=== PATIENT | male | born 1945 | race Caucasian/White ===

== ENCOUNTER 2017-10-13 23:07 | Inpatient (IN) ==
[2017-10-14] MEDS ORDERED: Bisacodyl 10 MG Supp RECTAL PRN (02:11)
[2017-10-14] MEDS ORDERED: Temazepam 15 MG Capsule PO PRN (02:11)
[2017-10-14] MEDS ORDERED: Dexamethasone Inj 20 MG/5 ML Vial IV.PUSH ONE (02:17)
--- NOTE | 2017-10-14 02:32 | P.HPCC ---
History of Present Illness Primary Care Physician: UNKNOWN History of Present Illness: 72-year-old very pleasant gentleman presented to [facility] via EMS for an evaluation of a fall. The patient states that he was walking into the library when he started to become uncoordinated, states falling onto his right hip. The patient reports now having a persistent right hib pain. He denies any head trauma or loss of consciousness. The patient states that about the 1 months ago he has been in the emergency department at [facility] due to a facial droop but he left AMA at that time. He was having an MRI completed at the [facility] on October 10 that shows 2 cm peripheral enhancing mass within the left parietal lobe with a moderate amount of surrounding edema highly suspicious for metastatic disease. There is no history of primary malignancy which could have similar appearance although is considered less likely. The CT brain at the [facility] shows heterogenous hyperdense focal hemorrhagic mass at the right frontal lobe 2.4 cm in size with reactive vasogenic edema. The patient has also x-ray of the hip and pelvis that shows acute minimally displaced fracture at the right proximal femur likely intertrochanteric in location. The patient has been transferred to [facility] [place] for higher level of care and neurosurgical/ orthopedic evaluation. Inpatient Certification: I certify that the inpatient services were ordered in accordance with Medicare regulations governing the order. This includes certification that hospital inpatient services are reasonable and necessary and in the case of services not specified as inpatient-only under 42 CFR 419.22(n), that they are appropriately provided as inpatient services in accordance to with the 2-midnight benchmark under 43 CFR 412.3(e) Estimated Total Length of Stay (Days): 5 Plans for Post Hospital Care: Not yet determined Review of Systems All other systems reviewed negative except as stated in HPI [facility] - Medical History Medical History: Medical History (Last Updated 10/14/17 @ 02:30 by Brodie Davis MD) COPD (chronic obstructive pulmonary disease) Multiple sclerosis - Surgical History Surgical History: Surgical History (Last Updated 10/14/17 @ 02:30 by Brodie Davis MD) Hx of tonsillectomy - Family History Family History: Family History (Last Updated 10/14/17 @ 02:31 by Brodie Davis MD) Other No significant family history - Tobacco History Second Hand Smoke Exposure: No Tobacco Use In Past 30 Days: Yes Smoking Status: Current every day smoker Tobacco Type: Cigarettes - Alcohol History How Often Do You Have a Drink Containing Alcohol: Monthly or less Medications and Allergies Active Medications: Active Medications Acetaminophen (Tylenol) 650 mg PO Q6H PRN PRN Reason: PAIN 1-10 AND/OR FEVER >101F Al Hydroxide/Mg Hydroxide (Milk Of Magnesia Liq) 30 ml PO Q12H PRN PRN Reason: Mild Constipation Albuterol (Duoneb Neb (Prn)) 1 ampul NEB Q2HR NEB PRN PRN Reason: WHEEZING Bisacodyl (Dulcolax Supp) 10 mg RECTAL DAILY PRN PRN Reason: SEVERE CONSITIPATION Chlorhexidine Gluconate (Chlorhexidine 2% Cloth) 3 pack TOPICAL DAILY@0400 PRN PRN Reason: Extra cloth needed Stop: 10/19/17 03:59 Chlorhexidine Gluconate (Chlorhexidine 2% Cloth) 3 pack TOPICAL DAILY@0400 DREW Stop: 10/19/17 03:59 Dexamethasone Sodium Phosphate (Decadron Inj) 4 mg IV.PUSH Q6HR DREW Famotidine (Pepcid Pf Inj) 20 mg IV.PUSH Q12HR DREW Sodium Chloride (Ns Inj) 1,000 mls @ 84 mls/hr IV.CONT .[id number] DREW Lactulose (Lactulose Liq) 30 ml PO DAILY PRN PRN Reason: SEVERE CONSITIPATION Morphine Sulfate (Morphine Inj) 2 mg IV.PUSH Q2H PRN PRN Reason: PAIN SCALE 6 TO 10 Ondansetron HCl (Zofran Inj) 4 mg IV.PUSH Q6H PRN PRN Reason: NAUSEA OR VOMITING Senna/Docusate Sodium (Imrella-Colace) 1 tab PO BID DREW Sennosides (Senokot) 17.2 mg PO Q12H PRN PRN Reason: Moderate Constipation Sodium Chloride (Ns Flush) 2 ml IV.FLUSH BID DREW Sodium Chloride (Ns Flush) 2 ml IV.FLUSH PRN PRN PRN Reason: FLUSH AFTER USING IV ACCESS Temazepam (Restoril) 15 mg PO HS PRN PRN Reason: INSOMNIA Allergies Allergy/AdvReac Type Severity Reaction Status Date / Time No Known Allergies Allergy Verified 10/14/17 02:07 Results - Labs CBC & Chem 7: 10/14/17 02:20 10/14/17 02:20 Exam Vital signs: Intake & Output 10/13/17 10/13/17 10/14/17 06:59 18:59 06:59 Weight 56.2 kg Other: Weight On Admission 56.2 kg - Constitutional mild distress - Routine HEENT Exam Head: Present: normocephalic, atraumatic Eye: Present: PERRL ENT: Present: mucous membranes moist - Routine Neck Exam Present: supple. Absent: JVD, carotid bruit - Routine Respiratory Exam Absent: accessory muscle use, rhonchi, stridor, wheezes - Routine Cardiovascular Exam Present: RRR, S1, S2 - Routine Abdominal Exam Present: soft, normoactive bowel sounds. Absent: tenderness - Routine Extremities Exam Absent: cyanosis, clubbing, edema - Routine Skin Exam Present: intact. Absent: cyanosis, erythema - Routine Neurological Exam Present: alert, oriented X3, facial asymmetry. Absent: pronator drift Caprini VTE Risk Assessment Caprini VTE Risk Assessment: Moderate/High Risk (score >= 2) Caprini Risk Assessment Model: Point Value = 1 Point Value = 2 Point Value = 3 Point Value = 5 Age 41-60 Minor surgery BMI > 25 kg/m2 Swollen legs Varicose veins or History of unexplained or recurrent spontaneous Oral contraceptives or hormone replacement Sepsis (< 1 month) Serious lung disease, including pneumonia (< 1 month) Abnormal pulmonary function Acute myocardial infarction Congestive heart failure (< 1 month) History of inflammatory bowel disease Medical patient at bed rest Age 61-74 Arthroscopic surgery Major open surgery (> 45 min) Laparoscopic surgery (> 45 min) Malignancy Confined to bed (> 72 hours) Immobilizing plaster cast Central venous access Age >= 75 History of VTE Family history of VTE Factor V Leiden Prothrombin [id number] Lupus anticoagulant Anticardiolipin antibodies Elevated serum homocysteine Heparin-induced thrombocytopenia Other congenital or acquired thrombophilia Stroke (< 1 month) Elective arthroplasty Hip, pelvis, or leg fracture Acute spinal cord injury (< 1 month) Prophylaxis Regimen: Total Risk Factor Score Risk Level Prophylaxis Regimen 0-1 Low Early ambulation 2 Moderate Order ONE of the following: *Sequential Compression Device (SCD) *Heparin 5000 units SQ BID 3-4 Higher Order ONE of the following medications: *Heparin 5000 units SQ TID *Enoxaparin/Lovenox 40 mg SQ daily (WT < 150 kg, CrCl > 30 mL/min) *Enoxaparin/Lovenox 30 mg SQ daily (WT < 150 kg, CrCl > 10-29 mL/min) *Enoxaparin/Lovenox 30 mg SQ BID (WT < 150 kg, CrCl > 30 mL/min) AND/OR *Sequential Compression Device (SCD) 5 or more Highest Order ONE of the following medications: *Heparin 5000 units SQ TID (Preferred with Epidurals) *Enoxaparin/Lovenox 40 mg SQ daily (WT < 150 kg, CrCl > 30 mL/min) *Enoxaparin/Lovenox 30 mg SQ daily (WT < 150 kg, CrCl > 10-29 mL/min) *Enoxaparin/Lovenox 30 mg SQ BID (WT < 150 kg, CrCl > 30 mL/min) AND *Sequential Compression Device (SCD) Assessment and Plan - Assessment and Plan Plan: Brain mass -Likely secondary per MRI review -Vasogenic edema -Decadron every 6 hours -Neurosurgical consultation -Repeat CT head -Neuro checks per unit protocol -CT chest abdomen and pelvis workup of primary lesion -Oncology consultation Hip fracture -Orthopedic consultation COPD -No exacerbation -DuoNeb's as needed DVT GI prophylaxis -Teds SCDs -Pharmacological DVT prophylaxis per oncology/neurosurgery, hold now due to hemorrhagic brain mass -Pepcid Critical Care: The total critical care time was 35 minutes. Time to perform other separately billable procedures was not included in the critical care time.
[2017-10-14 02:39] LABS: Baso % (Auto) 0.2 % (0.0-2.0); Hematocrit 47.5 % (39.0-51.0); Hemoglobin 16.7 gm/dL (13.0-17.0); Lymph # (Auto) 0.5 th/mm3 (1.0-4.8); Lymph % (Auto) 3.4 % (9.0-44.0); Mean Corpuscular HGB Conc 35.1 % (32.0-36.0); Mean Corpuscular Hemoglobin 31.3 pg (27.0-34.0); Mean Corpuscular Volume 89.1 fL (80.0-100.0); Mean Platelet Volume 7.6 fL (7.0-11.0); Mono # (Auto) 0.4 th/mm3 (0.0-0.9); Mono % (Auto) 2.3 % (0.0-8.0); Neut # (Auto) 14.8 th/mm3 (1.8-7.7); Neut % (Auto) 94.1 % (16.0-70.0); Platelet Count 247 th/mm3 (150-450); Red Blood Count 5.33 mil/mm3 (4.50-5.90); Red Cell Distribution Width 13.1 % (11.6-17.2); White Blood Count 15.7 th/mm3 (4.0-11.0)
[2017-10-14 02:45] LABS: Alanine Aminotransferase 38 U/L (12-78); Albumin 3.4 g/dL (3.4-5.0); Anion Gap 6 meq/L (5-15); Aspartate Aminotransferase 26 U/L (15-37); Blood Urea Nitrogen 12 mg/dL (7-18); Calcium 8.8 mg/dL (8.5-10.1); Carbon Dioxide 26.4 meq/L (21.0-32.0); Chloride 109 meq/L (98-107); Glomerular Filtration Rate 80 mL/min (>89); Glucose,Random 144 mg/dL (74-106); Magnesium 2.3 mg/dL (1.5-2.5); Phosphorus 3.8 mg/dL (2.5-4.9); Potassium 4.2 meq/L (3.5-5.1); Sodium 141 meq/L (136-145)
[2017-10-14 02:47] LABS: Alkaline Phosphatase 85 U/L (45-117); Total Protein 6.8 g/dL (6.4-8.2)
[2017-10-14 02:51] LABS: Activated Partial Thrombo Time 28.2 sec (24.3-30.1); Prothrombin Time 10.4 sec (9.8-11.6)
[2017-10-14] MEDS ORDERED: Chlorhexidine Gluconate 2% 1 Pack (2 Cloths) TOPICAL PRN (04:00)
[2017-10-14] MEDS: Sod Chloride 0.9% Inj 1,000 ML IV.CONT SCH ×2 (04:14→16:15)
[2017-10-14] MEDS: Chlorhexidine Gluconate 2% 1 Pack (2 Cloths) TOPICAL SCH (04:15)
--- NOTE | 2017-10-14 05:02 | CT ---
EXAM DATE: 10/14/2017 4:52 AM EDT AGE/SEX: 72 years / Male INDICATIONS: Hemorrhagic mass. CLINICAL DATA: This is the patient's initial encounter. Patient reports that signs and symptoms have been present for 1 day and indicates a pain score of 3/10. MEDICAL/SURGICAL HISTORY: Chronic obstructive pulmonary disease. Multiple sclerosis. None. RADIATION DOSE: 59.43 CTDI (mGy) COMPARISON: No prior exams available for comparison. TECHNIQUE: CT of the head without contrast. Using automated exposure control and adjustment of the mA and/or kV according to patient size, radiation dose was kept as low as reasonably achievable to ob tain optimal diagnostic quality images. DICOM format image data is available electronically for revi ew and comparison. FINDINGS: The examination demonstrates a hyperdense mass in the left frontal subcortical region with a large am ount of surrounding vasogenic edema. The mass measures 2.5 x 1.7 cm in transverse and AP dimension. T here is no midline shift. There are no signs of acute infarction. There is a subcentimeter low-densit y focus in the right basal ganglia, and there is patchy periventricular white matter disease. The oss eous structures are intact. CONCLUSION: 1. Left frontal intra-axial mass with large amount of surrounding vasogenic edema. 2. Atrophy and white matter disease. . Electronically signed by: Skinny Clayton MD 10/14/2017 5:01 AM EDT
--- NOTE | 2017-10-14 05:05 | CT ---
EXAM DATE: 10/14/2017 4:58 AM EDT AGE/SEX: 72 years / Male INDICATIONS: Brain mass. Evaluate for metastatic disease. CLINICAL DATA: This is the patient's initial encounter. Patient reports that signs and symptoms have been present for 1 day and indicates a pain score of 0/10. MEDICAL/SURGICAL HISTORY: Chronic obstructive pulmonary disease. Multiple sclerosis. None. RADIATION DOSE: 6.51 CTDI (mGy) COMPARISON: [facility] [place] ABDOMEN & PELVIS W CONTRAST, 10/14/2017. . TECHNIQUE: Multiple contiguous axial images were obtained through the chest during bolus infusion of 98 ml Omnipaque 350 (iohexol) nonionic water-soluble contrast as a cumulative dose for multiple exa ms. Images were obtained in suspended respiration using multiple row detector helical technique. U sing automated exposure control and adjustment of the mA and/or kV according to patient size, radiati on dose was kept as low as reasonably achievable to obtain optimal diagnostic quality images. DICOM format image data is available electronically for review and comparison. FINDINGS: 3.4 cm predominately hypodense though inhomogeneous mass of the spleen identified. Visualized kidneys are unremarkable. Adrenals unremarkable. Osseous structures are intact. Right hilar adenopathy up to 1.7 cm in short axis dimension. 1 cm precarinal lymph node. There is mild dilatation of the ascendin g aorta up to 4 cm. Review of lung windows demonstrate severe emphysema with a large left upper lobe bulla noted. There are atelectatic changes at the left lung base. There is a nodule in the right midd le lobe, noncalcified measuring 5.3 mm on image 45. CONCLUSION: 1. 5.3 mm right middle lobe nodule. 2. Severe emphysema. 3. Nonspecific mediastinal and right hilar adenopathy. 4. Indeterminate mass within the spleen. Electronically signed by: Skinny Clayton MD 10/14/2017 5:04 AM EDT
--- NOTE | 2017-10-14 05:14 | CT ---
EXAM DATE: 10/14/2017 4:57 AM EDT AGE/SEX: 72 years / Male INDICATIONS: Brain mass. Evaluate for metastatic disease. Fall with right hip fracture. CLINICAL DATA: This is the patient's initial encounter. Patient reports that signs and symptoms have been present for 1 day and indicates a pain score of 10/10. MEDICAL/SURGICAL HISTORY: Chronic obstructive pulmonary disease. Multiple sclerosis. None. ORAL CONTRAST: No oral contrast ingested. RADIATION DOSE: 6.51 CTDI (mGy) ; Combined studies COMPARISON: No prior exams available for comparison. TECHNIQUE: Multiple contiguous axial images were obtained through the abdomen and pelvis following b olus infusion of 98 ml Omnipaque 350 (iohexol) nonionic water-soluble contrast as a cumulative dose for multiple exams. No oral contrast ingested. Using automated exposure control and adjustment of t he mA and/or kV according to patient size, radiation dose was kept as low as reasonably achievable to obtain optimal diagnostic quality images. DICOM format image data is available electronically for r eview and comparison. FINDINGS: There are degenerative changes of the spine, and atherosclerotic calcification of the aorta and iliac vessels are noted. Liver, gallbladder, left kidney, adrenal glands unremarkable. There is focal scar ring at the middle pole of the right kidney. Urinary bladder unremarkable. The prostate is prominent measuring 6.8 cm in transverse dimension by 4 cm in AP dimension. Moderate to severe diverticulosis o f the sigmoid colon without diverticulitis. There is no adenopathy. There is ectasia of the abdominal aorta measuring 2.5 x 2.5 cm focally on image 36 below the level of the kidneys. There are multiple hypodense masses seen within the spleen including an inhomogeneous predominantly low attenuation mass measuring 3.4 x 3.1 cm in transverse and AP dimension. Lung windows demonstrate severe emphysema and left basilar atelectasis. There are severe degenerative changes of the lumbar spine. CONCLUSION: 1. Splenic nodules are identified including a 3.4 cm mass. This is nonspecific. 2. Severe emphysema. 3. Mild ectasia of the infrarenal abdominal aorta. Electronically signed by: Skinny Clayton MD 10/14/2017 5:13 AM EDT
--- NOTE | 2017-10-14 07:31 | P.PNOP ---
Subjective Interval history: Patient with long-standing history of MS. Presented a transfer from [facility] after suffering a fall while trying to walk into the library. States that he lost all control of his motor function and lower body. Reports right hip pain Physical Exam Vital signs: Vital Signs 10/14/17 03:00 10/14/17 03:10 10/14/17 04:00 Temperature 98.2 F 98.3 F Pulse Rate 76 84 72 Respiratory Rate 18 20 Blood Pressure 168/101 H 168/102 H Pulse Oximetry 94 L Intake & Output 10/13/17 10/14/17 10/14/17 18:59 06:59 18:59 Output Total 400 / 400 Balance -400 / -400 Weight 56.2 kg Output: Urine 400 / 400 Other: Weight On Admission 56.2 kg Narrative: RLE: Pain with motion of the hip. Full sensation distally and strong dorsiflexion. Results - Labs CBC & Chem 7: 10/14/17 02:20 10/14/17 02:20 Laboratory Results - last 24 hr 10/14/17 10/14/17 10/14/17 01:47 02:20 02:20 WBC 15.7 H RBC 5.33 Hgb 16.7 Hct 47.5 MCV 89.1 MCH 31.3 MCHC 35.1 RDW 13.1 Plt Count 247 MPV 7.6 Neut % (Auto) 94.1 H Lymph % (Auto) 3.4 L [place] % (Auto) 2.3 Eos % (Auto) 0.0 Baso % (Auto) 0.2 Neut # (Auto) 14.8 H Lymph # (Auto) 0.5 L [place] # (Auto) 0.4 Eos # (Auto) 0.0 Baso # (Auto) 0.0 WBC Differential . Differential Comment Auto diff final PT 10.4 INR 1.0 APTT 28.2 Sodium Potassium Chloride Carbon Dioxide Anion Gap BUN Creatinine Estimated GFR Random Glucose Calcium Phosphorus Magnesium Total Bilirubin AST ALT Alkaline Phosphatase Total Protein Albumin Nasal Screen MRSA (PCR) Not detected 10/14/17 02:20 WBC RBC Hgb Hct MCV MCH MCHC RDW Plt Count MPV Neut % (Auto) Lymph % (Auto) [place] % (Auto) Eos % (Auto) Baso % (Auto) Neut # (Auto) Lymph # (Auto) [place] # (Auto) Eos # (Auto) Baso # (Auto) WBC Differential Differential Comment PT INR APTT Sodium 141 Potassium 4.2 Chloride 109 H Carbon Dioxide 26.4 Anion Gap 6 BUN 12 Creatinine 0.93 Estimated GFR 80 L Random Glucose 144 H Calcium 8.8 Phosphorus 3.8 Magnesium 2.3 Total Bilirubin 0.8 AST 26 ALT 38 Alkaline Phosphatase 85 Total Protein 6.8 Albumin 3.4 Nasal Screen MRSA (PCR) - Imaging Impressions Abdomen/Pelvis CT 10/14/17 00:00 CONCLUSION: 1. Splenic nodules are identified including a 3.4 cm mass. This is nonspecific. 2. Severe emphysema. 3. Mild ectasia of the infrarenal abdominal aorta. Chest CT 10/14/17 00:00 CONCLUSION: 1. 5.3 mm right middle lobe nodule. 2. Severe emphysema. 3. Nonspecific mediastinal and right hilar adenopathy. 4. Indeterminate mass within the spleen. Head CT 10/14/17 00:00 The examination demonstrates a hyperdense mass in the left frontal subcortical region with a large amount of surrounding vasogenic edema. The mass measures 2.5 x 1.7 cm in transverse and AP dimension. There is no midline shift. There are no signs of acute infarction. There is a subcentimeter low-density focus in the right basal ganglia, and there is patchy periventricular white matter disease. The osseous structures are intact. CONCLUSION: 1. Left frontal intra-axial mass with large amount of surrounding vasogenic edema. 2. Atrophy and white matter disease. . Assessment and Plan - Assessment and Plan 1) right femoral neck fracture -Resume diet -N.p.o. after midnight -We will plan for surgical intervention with right hip hemiarthroplasty tomorrow Dr. Velazquez -Medical team to evaluate for surgical intervention -We will proceed pending medical clearance -Sign consents
[2017-10-14] MEDS: Labetalol HCl Inj 100 MG/20 ML Vial IV.PUSH PRN (08:12)
[2017-10-14] MEDS: Senna/Docusate Sodium 8.6/50 MG Tablet PO SCH ×2 (08:12→21:46)
[2017-10-14] MEDS: Famotidine PF Inj 20 MG/2 ML Vial IV.PUSH SCH ×2 (08:12→21:46)
--- NOTE | 2017-10-14 10:30 | MB ---
cc: Nabeel Velazquez MD DATE: 10/14/2017 REASON FOR CONSULTATION: Right femoral neck fracture. HISTORY OF PRESENT ILLNESS: Juvenal is a 72-year-old male who has a history of multiple sclerosis. He states that he was walking into the public library when he suddenly felt uncoordinated and was losing control of his muscles. He tried to make it to a chair to sit down. He lost his balance and fell. He landed on his right side. He was initially taken to [facility] in [place]. He was found to have a 2 cm peripheral enhancing lesion in the left parietal lobe. He was subsequently transferred to [facility]. He is currently awake and alert in the intensive care unit. He complains of right hip pain. The pain is worse with movement. He denies dizziness or syncope. PAST MEDICAL HISTORY: ILLNESSES: COPD, multiple sclerosis. PAST SURGICAL HISTORY: Tonsillectomy. ALLERGIES: NO KNOWN DRUG ALLERGIES. MEDICATIONS: Please see EMR for complete list of inpatient medications. This was reviewed. SOCIAL HISTORY: The patient does smoke cigarettes. He denies alcohol or drug use. FAMILY HISTORY: Noncontributory. REVIEW OF SYSTEMS: The patient denies fevers, chills, weight loss, headache, visual changes, hearing loss, chest pain, palpitations, shortness of breath, nausea, vomiting, urinary changes, diarrhea, bowel changes, neck pain, back pain, skin rashes, weakness, numbness of extremities, anxiety or depression. He does have chronic hearing loss, but this is unchanged. He complains of right hip pain. X-RAYS: X-rays of right hip are reviewed. X-rays reveal a partially displaced right femoral neck fracture. LABORATORY DATA: White blood cell count of 15.7, platelet count 247, hematocrit of 47.5. INR 1.0. Potassium 4.2. PHYSICAL EXAMINATION: GENERAL: The patient is a thin, well-developed 72-year-old male. He is awake and alert. He is in no acute distress. He is alert and oriented x3. VITAL SIGNS: Temperature 98.2, pulse 76, respirations 18, blood pressure 168/101, O2 saturation 94% on room air. HEAD: The patient is normocephalic. EYES: Pupils are equal. NECK: Soft, nontender. The trachea is in the midline. ABDOMEN: Soft, nontender, nondistended. EXTREMITIES: Examination of bilateral upper extremities reveals no pain with shoulder, elbow or wrist motions. He has intact sensation in all fingers. Skin is intact. Radial pulses are palpable bilaterally. Examination of the left leg reveals no pain with hip, knee or ankle motion. Skin is intact. Dorsalis pedis pulse is palpable. Sensation is intact. Examination of the right leg reveals pain with any hip motion. He is tender to palpation over the proximal femur. He has no tenderness on his knee, tibia or ankle. Skin is intact. Dorsalis pedis pulse is palpable. IMPRESSION: 1. Multiple sclerosis. 2. Newly diagnosed brain lesion. 3. Right femoral neck fracture. PLAN: Treatment options were discussed with the patient. At this point I would recommend surgery for the right hip. I would recommend a right hip hemiarthroplasty. Risks of surgery include bleeding, infection, injuries to arteries, nerves or blood vessels, leg length discrepancy, hip dislocation, fracture of the femur as well as medical complications including blood clot, stroke, heart attack and . All questions were answered. I will plan surgery tomorrow if he is medically cleared. Postoperatively, the patient will have Physical Therapy consulted to work on gait training. A mid-level provider in my office, nurse practitioner or PA, may see this patient on a follow-up basis and continue to implement the objective of this plan including: Starting or adjusting medications, injections of muscle, tendon, bursa or joints, cast application, orthotic or brace application, physical therapy, further radiographic studies including x-ray, MRI, CT, ultrasounds or bone scan, vascular studies, neurologic studies, or other specialist consultations, and proceeding with surgical management as appropriate. MD NOLVIA Johnson/MINISTERIO , 10:11 AM , 10:19 AM
[2017-10-14] MEDS ORDERED: Gadobutrol PF 7.5 MMOL/7.5 ML Vial (for RAD) IV.SIG ONE (11:03)
--- NOTE | 2017-10-14 11:32 | MR ---
EXAM DATE: 10/14/2017 11:21 AM EDT AGE/SEX: 72 years / Male INDICATIONS: . Mass seen on CT. CLINICAL DATA: This is the patient's subsequent encounter. Patient reports that signs and symptoms h ave been present for 2 days and indicates a pain score of 2/10. MEDICAL/SURGICAL HISTORY: Multiple sclerosis. Chronic obstructive pulmonary disease. Tonsillec gadiel. COMPARISON: [facility] [place], [place] HEAD W/O CONTRAST, 10/14/2017.. . TECHNIQUE: Multiplanar, multisequence examination of the brain was performed without and with 5.5 ml Gadavist (gadobutrol) contrast as a single exam dose. FINDINGS: Cerebrum: There is a soft tissue mass at the willson-white matter junction involving the left parietal lobe. This measures 2.5 x 2.1 x 1.8 cm. An enhancing nodule is seen involving the more anterior aspec t of the lesion. There is surrounding vasogenic edema. Multiple tiny foci of blooming artifact scatte red throughout both cerebral and cerebellar hemispheres suggesting areas of microhemorrhage. No acute hemorrhage. No infarction.. White Matter: Confluent high T2 signal abnormality involving the periventricular white matter both c erebral hemispheres as well as scattered throughout the corpus callosum.. Posterior Fossa: The cerebellum and brainstem are intact. The 4th ventricle is midline. The cerebel lopontine angle is unremarkable. The cerebellar tonsils are normal in position. Diffusion Imaging: No focal areas of restricted diffusion are seen. No evidence of acute infarction . Extracranial: The visualized portions of the orbits and paranasal sinuses are unremarkable. Post Contrast: No abnormal areas of parenchymal or dural enhancement. No evidence of blood-brain ba rrier breakdown. CONCLUSION: 1. 2.5 x 2.1 x 1.8 cm intra-axial mass involving the left parietal lobe with surrounding vasogenic e ramiro consistent with a malignancy. 2. Multiple foci of microhemorrhage scattered throughout both cerebral and cerebellar hemispheres townsend ggesting amyloid angiopathy. 3. White matter changes suggesting multiple sclerosis. Electronically signed by: Dago Tripp MD 10/14/2017 11:31 AM EDT
--- NOTE | 2017-10-14 13:10 | P.DIET ---
Nutritional Evaluation Type of nutrition evaluation: initial Nutrition screening: Weight Loss > 10 lbs (Steady loss of wt) Subjective Subjective Comments: C/o steady loss of wt possibly r/t the fact that he is unable to stand for long durations to cook, per pt. Objective - Diagnosis Brain Tumor - Objective % IBW: 72 (ZOT=449#) Body Weight Used for Calculations: IBW (78.2kg) Energy Needs - Lower Range (kCal/kg): 25 Energy Needs - Upper Range (kCal/kg): 30 Lower Limit kCal/kg (kCals): 1,955 Upper Limit kCal/kg (kCals): 2,346 Lower Limit Protein Factor (Grams per Kg): 1.2 Upper Limit Protein Factor (Grams per Kg): 1.5 Lower Protein Needs (Protein): 94 Upper Protein Needs (Protein): 117 Dietitian Reviewed in Medical Record: Current diet, Curent medications, Intake & Output, Labs, Medical history Diet Order: Regular Assessment Assessment: Pt admitted for brain tumor. Pt to go to possible ortho sx tomorrow if medically clear. Oncology consult pending. Currently on a Regular diet, which is appropriate. I've added Ensure Enlive TID for added nutrition. Recommend a multivitamin/mineral daily. He does c/o wt loss. Pt is at high nutritional risk 2/2 his wt loss/current wt status, poor PO intake, and current medical dx. Will continue to monitor to determine course of care 2/2 the above. Dietitian following. Recommendations: 1. Recommend daily multivitamin/mineral. 2. Enlive TID. Dietitian to Monitor: Lab values, Supplement acceptance, Intake & Output, Diet tolerance, Weight change, PO Intake, Medical course
--- NOTE | 2017-10-14 20:07 | P.CONNS ---
History of Present Illness Service: Neurosurgery Consult date: 10/14/17 Primary Care Provider: UNKNOWN Chief Complaint: Right sided weakness History of Present Illness: 72-year-old male. Gives a history of MS with previous left sided weakness and loss of coordination. He states that approximately a month ago he developed a right facial droop. He states that the initial episode was relatively short- lived, resolved. He had a couple of subsequent episodes. He states that he was seen in the emergency room when this problem first started and a scan was done of the brain with a finding of neoplasm. He states that it took him a month to get an MRI which was just done this week. He indicates that on the day of admission, he was ambulating and lost total control of his right side and fell. He has sustained a right femoral neck fracture. He states that his walking is been impaired for 2 or 3 weeks. He was seen at [facility] emergency room and transferred to [facility] for neurosurgery and orthopedic evaluation. He states that during his previous episodes where his face was weak, he had shaking, twitching in the face as well as the right upper extremity. No complaint of blurred vision diplopia. FOR[facility]LY [facility] - History History Provided By: Patient - Medical History Medical History: Medical History (Last Reviewed 10/14/17 @ 08:00 by Shabnam Russell) COPD (chronic obstructive pulmonary disease) Multiple sclerosis - Surgical History Surgical History: Surgical History (Last Reviewed 10/14/17 @ 08:00 by Shabnam Russell) Hx of tonsillectomy - Family History Family History: Family History (Last Updated 10/14/17 @ 02:31 by Brodie Davis MD) Other No significant family history - Tobacco History Second Hand Smoke Exposure: Yes Tobacco Use In Past 30 Days: Yes Smoking Status: Heavy tobacco smoker Tobacco Type: Cigarettes - Alcohol History How Often Do You Have a Drink Containing Alcohol: Never - Substance Use History Substance History: No History of Abuse - Immunization History Tetanus Immunization: >5 Years Hx Influenza Vaccine This Season: No Medications and Allergies Active Medications: Active Medications Acetaminophen (Tylenol) 650 mg PO Q6H PRN PRN Reason: PAIN 1-10 AND/OR FEVER >101F Al Hydroxide/Mg Hydroxide (Milk Of Magnesia Liq) 30 ml PO Q12H PRN PRN Reason: Mild Constipation Albuterol (Duoneb Neb (Prn)) 1 ampul NEB Q2HR NEB PRN PRN Reason: WHEEZING Bisacodyl (Dulcolax Supp) 10 mg RECTAL DAILY PRN PRN Reason: SEVERE CONSITIPATION Chlorhexidine Gluconate (Chlorhexidine 2% Cloth) 3 pack TOPICAL DAILY@0400 PRN PRN Reason: Extra cloth needed Stop: 10/19/17 03:59 Chlorhexidine Gluconate (Chlorhexidine 2% Cloth) 3 pack TOPICAL DAILY@0400 [facility] Stop: 10/19/17 03:59 Last Admin: 10/14/17 04:15 Dose: Not Given Dexamethasone Sodium Phosphate (Decadron Inj) 4 mg IV.PUSH Q6HR [facility] Last Admin: 10/14/17 17:31 Dose: 4 mg Famotidine (Pepcid Pf Inj) 20 mg IV.PUSH Q12HR [facility] Last Admin: 10/14/17 08:12 Dose: 20 mg Sodium Chloride (Ns Inj) 1,000 mls @ 84 mls/hr IV.CONT .[id number] [facility] Last Admin: 10/14/17 16:15 Dose: 84 mls/hr Labetalol HCl (Trandate Inj) 10 mg IV.PUSH Q4H PRN PRN Reason: SBP>160 Last Admin: 10/14/17 08:12 Dose: 10 mg Lactulose (Lactulose Liq) 30 ml PO DAILY PRN PRN Reason: SEVERE CONSITIPATION Morphine Sulfate (Morphine Inj) 2 mg IV.PUSH Q2H PRN PRN Reason: PAIN SCALE 6 TO 10 Nicotine (Habitrol 14 Mg Patch.24 Hr) 1 patch T-DERMAL DAILY [facility] Last Admin: 10/14/17 16:15 Dose: 1 patch Ondansetron HCl (Zofran Inj) 4 mg IV.PUSH Q6H PRN PRN Reason: NAUSEA OR VOMITING Patch Removal (Remove Old Patch) 1 each T-DERMAL DAILY [facility] Senna/Docusate Sodium (Mirella-Colace) 1 tab PO BID [facility] Last Admin: 10/14/17 08:12 Dose: 1 tab Sennosides (Senokot) 17.2 mg PO Q12H PRN PRN Reason: Moderate Constipation Sodium Chloride (Ns Flush) 2 ml IV.FLUSH BID [facility] Last Admin: 10/14/17 08:13 Dose: 2 ml Sodium Chloride (Ns Flush) 2 ml IV.FLUSH PRN PRN PRN Reason: FLUSH AFTER USING IV ACCESS Temazepam (Restoril) 15 mg PO HS PRN PRN Reason: INSOMNIA Allergies Allergy/AdvReac Type Severity Reaction Status Date / Time No Known Allergies Allergy Verified 10/14/17 02:07 Exam Vital signs: Vital Signs 10/14/17 03:00 10/14/17 03:10 10/14/17 04:00 Temperature 98.2 F 98.3 F Pulse Rate 76 84 72 Respiratory Rate 18 20 Blood Pressure 168/101 H 168/102 H Pulse Oximetry 94 L 10/14/17 08:00 10/14/17 12:00 10/14/17 16:00 Temperature 98.1 F 97.6 F 98.1 F Pulse Rate 70 64 56 L Respiratory Rate 20 30 H 18 Blood Pressure 169/103 H 137/78 122/72 Pulse Oximetry Intake & Output 10/14/17 10/14/17 10/15/17 06:59 18:59 06:59 Intake Total 1650 / 1650 Output Total 400 / 400 600 / 600 Balance -400 / -400 1050 / 1050 Weight 56.2 kg Intake: IV 1000 / 1000 NS Inj 1,000 ML @ 84 mls/hr IV. 1000 / 1000 CONT .[id number] DREW Rx#:[id number] Oral 650 / 650 Output: Urine 400 / 400 600 / 600 Other: Weight On Admission 56.2 kg Narrative: GENERAL: This is a well-nourished, well-developed patient, no apparent distress. SKIN: No abrasions, contusion, rash noted. Skin warm and dry. HEAD: Atraumatic. Normocephalic. No temporal or scalp tenderness. EYES: Sclerae are clear and nonicteric ENT: No facial edema or ecchymosis. No periorbital edema. No CSF otorrhea or rhinorrhea. No palpable facial fracture or deformity. NECK: Trachea midline. No cervical spine tenderness. CARDIOVASCULAR: Regular rate and rhythm without murmurs, gallops, or rubs. RESPIRATORY: Clear to auscultation. Breath sounds equal bilaterally. No wheezes , rales, or rhonchi. GASTROINTESTINAL: Abdomen soft, non-tender, nondistended. No hepato-splenomegaly , or palpable masses. No guarding. MUSCULOSKELETAL: Extremities without cyanosis, or edema. No joint tenderness, or edema noted. No calf tenderness. Dorsalis pedis pulses 2+ bilateral NEUROLOGICAL: Awake and alert Oriented X 3 Speech is pressured, rapid, moderate dysarthria. Conversant and appropriate but very anxious Follow simple commands well Answers questions appropriately Reasonable judgment and insight Recent and remote memory are intact Positive anxiety Pupils are equal and reactive to accommodation. Extra-ocular movements, visual choi to confrontation, palate, sternocleidomastoid testing, hearing to finger rub testing, and bilateral shoulder shrug are all intact. Moderate right facial paresis. Tongue protrudes slightly to the right of midline. Sensation is intact to light touch in all extremities Strength mildly diminished right hand intrinsics. Mostly 4-5/5 motor right lower extremity but in. Testing due to fracture. Sincere's absent bilaterally No ankle clonus Plantar responses absent bilateral Fine motor movements moderately impaired in the right greater than left upper extremities Results - Laboratory Findings CBC and BMP: 10/16/17 03:28 10/15/17 04:10 Abnormal lab findings: Abnormal Labs 10/14/17 10/14/17 10/14/17 02:20 02:20 18:05 WBC 15.7 H Neut % (Auto) 94.1 H Lymph % (Auto) 3.4 L Neut # (Auto) 14.8 H Lymph # (Auto) 0.5 L Chloride 109 H Estimated GFR 80 L POC Glucose 194 H Random Glucose 144 H - Diagnostic Findings Additional findings: The patient's MRI brain images have been reviewed. There is a greater than 2 cm lesion left parietal region at the deep aspect of the sulcus. Moderate surrounding edema. Radiology interpretation: Cerebrum: There is a soft tissue mass at the willson-white matter junction involving the left parietal lobe. This measures 2.5 x 2.1 x 1.8 cm. An enhancing nodule is seen involving the more anterior aspect of the lesion. There is surrounding vasogenic edema. Multiple tiny foci of blooming artifact scattered throughout both cerebral and cerebellar hemispheres suggesting areas of microhemorrhage. No acute hemorrhage. No infarction.. White Matter: Confluent high T2 signal abnormality involving the periventricular white matter both cerebral hemispheres as well as scattered throughout the corpus callosum.. Assessment and Plan - Plan Impression: Solitary left parietal neoplasm. Plan: Due to location of lesion. Radiation therapy should be considered for initial treatment. Brain biopsy may be needed if no other lesions are able to be biopsied for tissue diagnosis. Discussed with patient. All questions answered
[2017-10-15 05:04] LABS: Baso % (Auto) 0.1 % (0.0-2.0); Hematocrit 46.4 % (39.0-51.0); Hemoglobin 15.8 gm/dL (13.0-17.0); Lymph # (Auto) 0.7 th/mm3 (1.0-4.8); Lymph % (Auto) 2.8 % (9.0-44.0); Mean Corpuscular HGB Conc 34.2 % (32.0-36.0); Mean Corpuscular Hemoglobin 30.8 pg (27.0-34.0); Mean Corpuscular Volume 90.1 fL (80.0-100.0); Mean Platelet Volume 8.5 fL (7.0-11.0); Mono # (Auto) 0.9 th/mm3 (0.0-0.9); Mono % (Auto) 3.3 % (0.0-8.0); Neut # (Auto) 24.5 th/mm3 (1.8-7.7); Neut % (Auto) 93.8 % (16.0-70.0); Platelet Count 247 th/mm3 (150-450); Red Blood Count 5.15 mil/mm3 (4.50-5.90); Red Cell Distribution Width 13.2 % (11.6-17.2); White Blood Count 26.1 th/mm3 (4.0-11.0)
[2017-10-15 05:11] LABS: Activated Partial Thrombo Time 25.4 sec (24.3-30.1)
[2017-10-15 05:24] LABS: Albumin 3.2 g/dL (3.4-5.0); Anion Gap 9 meq/L (5-15); Aspartate Aminotransferase 22 U/L (15-37); Blood Urea Nitrogen 19 mg/dL (7-18); Calcium 8.8 mg/dL (8.5-10.1); Carbon Dioxide 25.9 meq/L (21.0-32.0); Chloride 105 meq/L (98-107); Glomerular Filtration Rate 76 mL/min (>89); Glucose,Random 98 mg/dL (74-106); Magnesium 2.2 mg/dL (1.5-2.5); Potassium 4.4 meq/L (3.5-5.1); Sodium 140 meq/L (136-145)
[2017-10-15 05:27] LABS: Alanine Aminotransferase 31 U/L (12-78); Alkaline Phosphatase 87 U/L (45-117); Total Protein 6.6 g/dL (6.4-8.2)
[2017-10-15] MEDS: Chlorhexidine Gluconate 2% 1 Pack (2 Cloths) TOPICAL SCH (05:31)
[2017-10-15] MEDS: Sod Chloride 0.9% Inj 1,000 ML IV.CONT SCH ×2 (05:31→14:15)
[2017-10-15] MEDS ORDERED: fentaNYL Citrate Inj 250 MCG/5 ML Ampul ONE (06:47)
[2017-10-15] MEDS ORDERED: fentaNYL Citrate Inj 100 MCG/2 ML Ampul ONE (06:48)
[2017-10-15] MEDS ORDERED: Famotidine PF Inj 20 MG/2 ML Vial ONE (06:48)
--- NOTE | 2017-10-15 06:55 | MB ---
cc: Chayo Seay MD DATE: 10/14/2017 REASON FOR CONSULTATION: Consult requested by explosive operator fuse, Dr. Davis, for evaluation of brain mass and recommendation for DVT prophylaxis. HISTORY OF PRESENT ILLNESS: Juvenal is a 72-year-old male. He was transferred from [facility] to [place] for neurosurgical consultation. The patient states that a month ago, he had developed a right facial droop and he went to [facility]. In the emergency room, he had radiological studies done, which showed a brain mass. He was advised for further workup, but he signed out against medical advice as he wants to take care of his finances and other personal stuff. Patient stated that when he was recently going to the library, he was not feeling well and he lost his balance and had weakness on the right side of the body. He fell. He was again brought in to the emergency room at [facility]. He had an MRI of the brain, which showed a 2 cm left parietal lobe mass. The patient is now transferred to [place] for neurosurgical consultation. The patient is under the care of explosive operator fuse. Dr. Davis is requesting oncology consult for brain mass, as well as recommendation for DVT prophylaxis. The patient appears to be confused and very talkative. His speech is tangential, sometimes it does not make much sense. The rest of the review of systems is negative. PAST MEDICAL HISTORY: COPD, multiple sclerosis. PAST SURGICAL HISTORY: Tonsillectomy. ALLERGIES: NONE. MEDICATIONS: Prior to coming to the hospital, none listed. FAMILY HISTORY: No family history of malignancy. SOCIAL HISTORY: The patient smokes cigarettes, one pack a day. Does not drink alcohol. PHYSICAL EXAMINATION: GENERAL: Shows a well-developed, chronically ill-appearing white male in no apparent distress. VITAL SIGNS: Temperature 98.1, heart rate is 56, blood pressure is 122/72. OBJECTIVE: VITAL SIGNS: Stable. Afebrile. HEAD, EYES, EARS, NOSE, AND THROAT: Pupils equal, round, reactive to light and accommodation, extraocular movements intact. Anicteric. No oral lesions noted. No thrush noted. NECK: Supple. No JVD. No masses noted. LUNGS: Clear. No wheezing, rhonchi, or rales. HEART: Regular rate and rhythm. No murmur heard. ABDOMEN: Soft and nontender. No hepatosplenomegaly. No abnormal bowel sounds. No guarding or rigidity noted. EXTREMITIES: No pedal edema. No cyanosis, no clubbing. NEUROLOGIC: Awake, alert, oriented x 3. Sensory and motor seem to be intact. SKIN: No bruises or petechiae noted. BREASTS: No masses noted. LYMPH NODES: No cervical, supraclavicular, or axillary lymphadenopathy noted. BACK: There is no spinal tenderness noted. NEUROLOGIC: Awake, alert, oriented x2. ASSESSMENT: 1. A 2.5 cm left parietal lobe mass with surrounding vasogenic edema. This is consistent with a primary brain tumor until proven otherwise. 2. Multiple foci of microhemorrhage scattered throughout both cerebral and cerebellar hemispheres, suggesting amyloid angiopathy. 3. White matter changes suggesting multiple sclerosis. PLAN: I have reviewed his available records, and I had an extensive discussion with the patient regarding the left parietal lobe mass. I also reviewed the CT scan of the chest, abdomen, and pelvis, which does not show any evidence of another primary cancer. He has a very small 5 mm lung nodule, which is nonspecific. He also has indeterminate mass in the spleen, which I believe is due to granulomatous disease. I strongly suspect that he has primary brain tumor. I talked to him about biopsy. Depending on the biopsy results, we will decide about further treatment plan. The patient has agreed to have the brain biopsy. Neurosurgery has been consulted and we are waiting for their input. I have discussed the case with supervisor mending, Dr. Pruitt. I have also discussed the case with the patient's nurse and informed her that the patient has agreed to have a brain biopsy. She will notify neurosurgeon for the consult. Regarding the DVT recommendation, he is not a candidate for any pharmacological prophylaxis due to brain mass, as well as hemorrhagic spots in the brain. The patient is already on SCDs, which I agree with that. Thank you for asking my opinion. MD ELENO Canales/leah/blane , 06:42 PM , 06:55 PM WILLIAMS
--- NOTE | 2017-10-15 07:02 | P.PNOP ---
Subjective Interval history: Pain controlled and doing well. No new complaints. Still complains of pain to right hip Physical Exam Vital signs: Vital Signs 10/14/17 08:00 10/14/17 12:00 10/14/17 16:00 Temperature 98.1 F 97.6 F 98.1 F Pulse Rate 70 64 56 L Respiratory Rate 20 30 H 18 Blood Pressure 169/103 H 137/78 122/72 Pulse Oximetry 10/14/17 20:00 10/14/17 21:09 10/15/17 00:00 Temperature 98.4 F 98.0 F Pulse Rate 68 Respiratory Rate 24 52 H Blood Pressure 157/111 H 127/68 Pulse Oximetry 93 L 10/15/17 04:00 Temperature 98.1 F Pulse Rate 58 L Respiratory Rate 22 Blood Pressure 172/89 H Pulse Oximetry 97 Intake & Output 10/14/17 10/15/17 10/15/17 18:59 06:59 18:59 Intake Total 1650 / 1650 1000 / 1000 Output Total 600 / 600 Balance 1050 / 1050 1000 / 1000 Intake: IV 1000 / 1000 1000 / 1000 NS Inj 1,000 ML @ 84 mls/hr IV. 1000 / 1000 1000 / 1000 CONT .[id number] DREW Rx#:[id number] Oral 650 / 650 Output: Urine 600 / 600 Narrative: Right lower extremity: Skin intact over hip. Pain with range of motion of hip. No pain to palpation of knee or ankle. Distally intact sensation with good capillary refills. Active dorsiflexion plantar flexion of foot Results - Labs CBC & Chem 7: 10/15/17 04:10 10/15/17 04:10 Laboratory Results - last 24 hr 10/14/17 10/15/17 10/15/17 18:05 04:10 04:10 WBC 26.1 H RBC 5.15 Hgb 15.8 Hct 46.4 MCV 90.1 MCH 30.8 MCHC 34.2 RDW 13.2 Plt Count 247 MPV 8.5 Neut % (Auto) 93.8 H Lymph % (Auto) 2.8 L [place] % (Auto) 3.3 Eos % (Auto) 0.0 Baso % (Auto) 0.1 Neut # (Auto) 24.5 H Lymph # (Auto) 0.7 L [place] # (Auto) 0.9 Eos # (Auto) 0.0 Baso # (Auto) 0.0 WBC Differential . Differential Comment Auto diff final PT 10.0 INR 1.0 APTT 25.4 Sodium Potassium Chloride Carbon Dioxide Anion Gap BUN Creatinine Estimated GFR POC Glucose 194 H Random Glucose Calcium Phosphorus Magnesium Total Bilirubin AST ALT Alkaline Phosphatase Total Protein Albumin 10/15/17 04:10 WBC RBC Hgb Hct MCV MCH MCHC RDW Plt Count MPV Neut % (Auto) Lymph % (Auto) [place] % (Auto) Eos % (Auto) Baso % (Auto) Neut # (Auto) Lymph # (Auto) [place] # (Auto) Eos # (Auto) Baso # (Auto) WBC Differential Differential Comment PT INR APTT Sodium 140 Potassium 4.4 Chloride 105 Carbon Dioxide 25.9 Anion Gap 9 BUN 19 H Creatinine 0.98 Estimated GFR 76 L POC Glucose Random Glucose 98 Calcium 8.8 Phosphorus 3.0 Magnesium 2.2 Total Bilirubin 0.4 AST 22 ALT 31 Alkaline Phosphatase 87 Total Protein 6.6 Albumin 3.2 L - Imaging Impressions Head MRI 10/14/17 00:00 CONCLUSION: 1. 2.5 x 2.1 x 1.8 cm intra-axial mass involving the left parietal lobe with surrounding vasogenic edema consistent with a malignancy. 2. Multiple foci of microhemorrhage scattered throughout both cerebral and cerebellar hemispheres suggesting amyloid angiopathy. 3. White matter changes suggesting multiple sclerosis. Assessment and Plan - Assessment and Plan 1) right femoral neck fracture -N.p.o. -Surgery this morning for right hip hemiarthroplasty -Sign consents
[2017-10-15] MEDS ORDERED: ceFAZolin 2 GM Premix Inj 2 GM/50 ML PIGGYBACK IV.SIG ONE (07:04)
--- NOTE | 2017-10-15 07:40 | ECG ---
Date Performed: 10/14/2017 Time Performed: 02:54:52 PTAGE: 72 years EKG: Sinus arrhythmia Possible right atrial abnormality Left bundle branch block Abnormal ECG NO PREVIOUS TRACING DOCTOR: Irene Rubio Interpretating Date/Time 10/15/2017 07:34:49
[2017-10-15] MEDS ORDERED: TRANEXAMIC ACID IV.SIG SCH (08:00)
[2017-10-15] MEDS ORDERED: SODIUM CHLOR 0.9% IV.SIG SCH (08:00)
[2017-10-15] MEDS ORDERED: Morphine Inj 4 MG/ML Vial ONE (08:19)
[2017-10-15] MEDS ORDERED: Post-op Orders (for Pharmacy) OTHER STA (08:33)
--- NOTE | 2017-10-15 08:37 | P.OP ---
- Preoperative Diagnosis (1) Displaced fracture of right femoral neck Date of procedure: 10/15/17 Procedure: Right hip hemiarthroplasty Anesthesia: GETA Surgeon: Nabeel Guerra MD Provider Network Mgr: CORRINA Edmonds PA-C The surgical procedure was assisted by my physician public health assistant. My P.A. presence was necessary throughout this case for the manipulation and positioning of the surgical extremity. My P.A. was assisting me throughout the duration of this procedure. The skill set of a physician public health assistant was medically necessary to complete this procedure. During the surgical case the surgical consultant was working at the back table and the physician public health assistant was directly assisting me. Operation and Findings: PLAN OF ACTIVITY Weight bear as tolerated. IMPLANTS USED DePuy Corail size [12] stem with size [51] bipolar head and [+1] neck. DETAILS OF PROCEDURE This patient was brought into the operating room and placed on the OR table. The patient was given anesthesia. The patient received IV antibiotics. The patient was then placed in lateral decubitus position. The hip and leg were prepped with alcohol, followed by Hibiclens and draped in a usual sterile fashion. Clean air was used for this procedure. Time out procedure was performed. The procedure began with a 5 inch incision over the posterolateral hip. The subcutaneous tissue was dissected with the Bovie. The iliotibial band were split in line with fibers. The Charnley retractor was placed. The piriformis and external rotators were released from the femur and tagged with a #1 Vicryl suture. The capsule is now incised and tagged with #1 Vicryl. The femoral neck fracture was now visualized. A corkscrew was now used to remove the femoral head. The femoral head was sized and measured. Soft tissue was now protected. The hip skid was placed underneath the femoral neck. An oscillating saw was used to make a femoral neck cut. At this point attention was turned to preparation of the proximal femur. A box osteotome was used to remove the lateral cortex of the femoral neck. The T- handle reamer was used to open the femoral canal. Next, the canal was broached. A lateralizing reamer was used to help lateralize the prosthesis. At this point a trial head and neck were placed. The hip was reduced. The patient was found to have excellent stability with good range of motion. Trial components were removed. Soft tissue and bone were thoroughly irrigated. A Corail stem was now opened. The stem was now impacted into the proximal femur. Care was taken to keep appropriate anteversion. The head and neck were now impacted onto the stem. The hip was again reduced. The hip was found to have good range of motion and good stability. Leg lengths were clinically equal. The wound was thoroughly irrigated. The capsule, piriformis and iliotibial band were closed with #1 Vicryl. Subcutaneous tissue was closed with 3-0 Vicryl. The skin was closed with willy. A sterile dressing was applied with Primapore. The patient was placed into a knee immobilizer. The patient was awakened and transferred to the recovery room in stable condition. Needle and sponge counts were correct.
[2017-10-15] MEDS ORDERED: *Meperidine Inj 25 MG/ML Vial PERIprocedural Use ONLY ONE (08:55)
--- NOTE | 2017-10-15 10:11 | XR ---
EXAM DATE: 10/15/2017 10:05 AM EDT AGE/SEX: 72 years / Male INDICATIONS: Post op right total hip replacement. CLINICAL DATA: This is the patient's initial encounter. Patient reports that signs and symptoms have been present for 1 day and indicates a pain score of 7/10. MEDICAL/SURGICAL HISTORY: None. None. COMPARISON: No prior exams available for comparison. FINDINGS: Postoperative right total hip replacement. Skin willy present laterally. Air in the soft tissues. 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 CONCLUSION: Postoperative right hip replacement with normal alignment. Electronically signed by: Kwan Casey MD 10/15/2017 10:10 AM EDT
[2017-10-15] MEDS: Famotidine PF Inj 20 MG/2 ML Vial IV.PUSH SCH ×2 (11:05→22:38)
[2017-10-15] MEDS: Senna/Docusate Sodium 8.6/50 MG Tablet PO SCH ×2 (11:06→22:38)
--- NOTE | 2017-10-15 11:42 | P.PNCC ---
Subjective Subjective Remarks/Hospital Course: 72-year-old very pleasant gentleman presented to [facility] via EMS for an evaluation of a fall. The patient states that he was walking into the library when he started to become uncoordinated, states falling onto his right hip. The patient reports now having a persistent right hib pain. He denies any head trauma or loss of consciousness. The patient states that about the 1 months ago he has been in the emergency department at [facility] due to a facial droop but he left AMA at that time. He was having an MRI completed at the [facility] on October 10 that shows 2 cm peripheral enhancing mass within the left parietal lobe with a moderate amount of surrounding edema highly suspicious for metastatic disease. There is no history of primary malignancy which could have similar appearance although is considered less likely. The CT brain at the [facility] shows heterogenous hyperdense focal hemorrhagic mass at the right frontal lobe 2.4 cm in size with reactive vasogenic edema. The patient has also x-ray of the hip and pelvis that shows acute minimally displaced fracture at the right proximal femur likely intertrochanteric in location. The patient has been transferred to [facility] for higher level of care and neurosurgical/ orthopedic evaluation. SUBJ: 10/15: Patient seen after right hip hemiarthroplasty. Breathing comfortably pain adequately controlled. Anxious about the brain tumor. Oncology Dr. Seay concerned about primary brain tumor. 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 Continues to have right facial droop Objective Vital Signs / I&O: Vital Signs 10/14/17 12:00 10/14/17 16:00 10/14/17 20:00 Temperature 97.6 F 98.1 F 98.4 F Pulse Rate 64 56 L 68 Respiratory Rate 30 H 18 24 Blood Pressure 137/78 122/72 157/111 H Pulse Oximetry 10/14/17 21:09 10/15/17 00:00 10/15/17 04:00 Temperature 98.0 F 98.1 F Pulse Rate 58 L Respiratory Rate 52 H 22 Blood Pressure 127/68 172/89 H Pulse Oximetry 93 L 97 10/15/17 07:10 10/15/17 08:48 10/15/17 09:00 Temperature 97.8 F 97.6 F Pulse Rate 62 89 79 Respiratory Rate 20 18 18 Blood Pressure 164/88 H 125/72 165/85 H Pulse Oximetry 96 95 95 10/15/17 09:15 10/15/17 09:30 Temperature 97.6 F Pulse Rate 70 69 Respiratory Rate 18 18 Blood Pressure 139/86 124/70 Pulse Oximetry 95 95 Intake & Output 10/14/17 10/15/17 10/15/17 18:59 06:59 18:59 Intake Total 1650 / 1650 1650 / 1650 1200 / 1200 Output Total 600 / 600 600 / 600 50 / 50 Balance 1050 / 1050 1050 / 1050 1150 / 1150 Weight 56.2 kg Intake: IV 1000 / 1000 1000 / 1000 50 / 50 NS Inj 1,000 ML @ 84 mls/hr IV. 1000 / 1000 1000 / 1000 CONT .[id number] [facility] Rx#:[id number] Ancef 2 GM Premix Inj 2 gm In 50 / 50 50 ml @ 0 mls/hr IV.SIG .STK- [facility] ONE Rx#:[id number] Oral 650 / 650 650 / 650 Anesthesia Amount 1150 / 1150 Output: Urine 600 / 600 600 / 600 Estimated Blood Loss 50 / 50 Result Diagrams: 10/15/17 04:10 10/15/17 04:10 Objective Remarks: - Constitutional Mildly anxious. - Routine HEENT Exam Head: normocephalic, atraumatic Eye: PERRL ENT: Right facial droop present - Routine Neck Exam Supple. No JVD, carotid bruit - Routine Respiratory Exam No accessory muscle use, rhonchi, stridor, wheezes - Routine Cardiovascular Exam RRR, S1, S2 - Routine Abdominal Exam Soft, normoactive bowel sounds. No tenderness - Routine Extremities Exam s/p right hip hemiarthroplasty. - Routine Skin Exam Right hip incision dressing intact - Routine Neurological Exam Alert, oriented X3, facial asymmetry right-sided facial droop. Muscle strength equal bilaterally at this time Assessment and Plan - Assessment and Plan Plan: Brain mass -Repeat MRI reviewed -Oncology opinion primary brain tumor. -Most likely will need brain biopsy, Dr. Bliss is following -Vasogenic edema, continue Decadron every 6 hours -Neuro checks per unit protocol -CT chest abdomen and pelvis workup of primary lesion, essentially unremarkable except small lung nodule -Oncology consultation appreciated Hip fracture -Orthopedic consultation -Patient is status post right hip hemiarthroplasty today -PT/OT COPD -No exacerbation -DuoNeb's as needed DVT GI prophylaxis -Teds SCDs -Pharmacological DVT prophylaxis per oncology/neurosurgery, hold now due to brain mass -Pepcid Critical Care: Level 2 Consult hospitalist to assume care in am.
[2017-10-15] MEDS ORDERED: Glycopyrrolate Inj 1 MG/5 ML Syringe IV.PUSH ONE (12:00)
[2017-10-15] MEDS ORDERED: Neostigmine Inj 5 MG/5 ML Syringe IV.PUSH ONE (12:00)
[2017-10-15] MEDS ORDERED: Lidocaine PF 1% Inj 5 ML Syringe INFILTRATN ONE (12:00)
[2017-10-15] MEDS ORDERED: hydrALAZINE HCl Inj 20 MG/ML Vial IV.PUSH ONE (12:00)
[2017-10-15] MEDS ORDERED: Esmolol Bolus Inj 100 MG/10 ML Vial IV.PUSH ONE (12:00)
[2017-10-15] MEDS: ALPRAZolam 0.25 MG Tablet PO PRN (13:27)
[2017-10-15] MEDS: Calcium/Vitamin D 250/125 MG Tablet PO SCH ×2 (13:27→17:52)
[2017-10-15] MEDS: ceFAZolin Inj 2,000 MG in Sodium Chlor 0.9% Inj 80 ML IV.SIG SCH (15:47)
--- NOTE | 2017-10-15 19:26 | P.PNPL ---
Subjective Interval history: 72 YOWM with Severe COPD, Left parietal mass Had Rt hip hemiarthroplasty Breathing better Anxious Physical Exam Vital signs: Vital Signs 10/14/17 20:00 10/14/17 21:09 10/15/17 00:00 Temperature 98.4 F 98.0 F Pulse Rate 68 Respiratory Rate 24 52 H Blood Pressure 157/111 H 127/68 Pulse Oximetry 93 L 10/15/17 04:00 10/15/17 07:10 10/15/17 08:48 Temperature 98.1 F 97.8 F 97.6 F Pulse Rate 58 L 62 89 Respiratory Rate 22 20 18 Blood Pressure 172/89 H 164/88 H 125/72 Pulse Oximetry 97 96 95 10/15/17 09:00 10/15/17 09:15 10/15/17 09:30 Temperature 97.6 F Pulse Rate 79 70 69 Respiratory Rate 18 18 18 Blood Pressure 165/85 H 139/86 124/70 Pulse Oximetry 95 95 95 10/15/17 12:00 10/15/17 16:00 Temperature 98.1 F 98.3 F Pulse Rate 75 72 Respiratory Rate 20 21 Blood Pressure 143/78 H 130/75 Pulse Oximetry 90 L 96 Intake & Output 10/15/17 10/15/17 10/16/17 06:59 18:59 06:59 Intake Total 1650 / 1650 1500 / 1500 Output Total 600 / 600 2400 / 2400 Balance 1050 / 1050 -900 / -900 Weight 56.2 kg Intake: IV 1000 / 1000 350 / 350 NS Inj 1,000 ML @ 84 mls/hr IV. 1000 / 1000 200 / 200 CONT .[id number] [facility] Rx#:[id number] Ancef 2 GM Premix Inj 2 gm In 50 / 50 50 ml @ 0 mls/hr IV.SIG .STK- [facility] ONE Rx#:[id number] Ancef Inj 2,000 MG In NS Inj 80 100 / 100 ML @ 200 mls/hr IV.SIG Q8H [facility] Rx#:[id number] Oral 650 / 650 Anesthesia Amount 1150 / 1150 Output: Urine 600 / 600 Estimated Blood Loss 50 / 50 Urine Amount (Catheter) 2350 / 2350 Indwelling Urethral Catheter 2350 / 2350 Other: # Bowel Movements 0 GENERAL: Elderly WM,NAD SKIN: Warm and dry. HEAD: Normocephalic. EYES: No scleral icterus. No injection or drainage. NECK: Supple, trachea midline. No JVD or lymphadenopathy. CARDIOVASCULAR: Regular rate and rhythm without murmurs, gallops, or rubs. RESPIRATORY: Breath sounds equal bilaterally. No accessory muscle use. GASTROINTESTINAL: Abdomen soft, non-tender, nondistended. MUSCULOSKELETAL: No cyanosis, or edema. BACK: Nontender without obvious deformity. No CVA tenderness. - Urinary Catheter Management Indwelling Urethral Catheter Cath placed during this visit: yes Reason for continuing: Acute urinary retention Insertion date: 10/15/17 Insertion time: 14:00 Assessment and Plan - Plan IMPRESSION: Severe COPD Left parietal mass Small Lung nodule Spleeinc nodule Nicotine use S/P Rt hip hemiarthroplasty PLAN: Aerosol nebs Supplement 02 Smoking cessation Neurosurgery, oncology following.
[2017-10-15] MEDS: Acetaminophen 325 MG Tablet PO PRN (22:38)
--- NOTE | 2017-10-15 22:58 | P.PNNS ---
Physical Exam Vital signs: Vital Signs 10/15/17 00:00 10/15/17 04:00 10/15/17 07:10 Temperature 98.0 F 98.1 F 97.8 F Pulse Rate 58 L 62 Respiratory Rate 52 H 22 20 Blood Pressure 127/68 172/89 H 164/88 H Pulse Oximetry 97 96 10/15/17 08:48 10/15/17 09:00 10/15/17 09:15 Temperature 97.6 F Pulse Rate 89 79 70 Respiratory Rate 18 18 18 Blood Pressure 125/72 165/85 H 139/86 Pulse Oximetry 95 95 95 10/15/17 09:30 10/15/17 12:00 10/15/17 16:00 Temperature 97.6 F 98.1 F 98.3 F Pulse Rate 69 75 72 Respiratory Rate 18 20 21 Blood Pressure 124/70 143/78 H 130/75 Pulse Oximetry 95 90 L 96 Intake & Output 10/15/17 10/15/17 10/16/17 06:59 18:59 06:59 Intake Total 1650 / 1650 1500 / 1500 Output Total 600 / 600 2400 / 2400 Balance 1050 / 1050 -900 / -900 Weight 56.2 kg Intake: IV 1000 / 1000 350 / 350 NS Inj 1,000 ML @ 84 mls/hr IV. 1000 / 1000 200 / 200 CONT .[id number] [facility] Rx#:[id number] Ancef 2 GM Premix Inj 2 gm In 50 / 50 50 ml @ 0 mls/hr IV.SIG .STK- [facility] Rx#:[id number] Ancef Inj 2,000 MG In NS Inj 80 100 / 100 ML @ 200 mls/hr IV.SIG Q8H [facility] Rx#:[id number] Oral 650 / 650 Anesthesia Amount 1150 / 1150 Output: Urine 600 / 600 Estimated Blood Loss 50 / 50 Urine Amount (Catheter) 2350 / 2350 Indwelling Urethral Catheter 2350 / 2350 Other: # Bowel Movements 0 Narrative: Right lower extremity: Skin intact over hip. Pain with range of motion of hip. No pain to palpation of knee or ankle. Distally intact sensation with good capillary refills. Active dorsiflexion plantar flexion of foot - Urinary Catheter Management Indwelling Urethral Catheter Cath placed during this visit: yes Reason for continuing: Acute urinary retention Insertion date: 10/15/17 Insertion time: 14:00 Assessment and Plan - Plan Impression: Solitary left parietal neoplasm. Plan: Due to location of lesion. Radiation therapy should be considered for initial treatment. Scheduled for biopsy 10/16/17
[2017-10-16] MEDS: ceFAZolin Inj 2,000 MG in Sodium Chlor 0.9% Inj 80 ML IV.SIG SCH ×2 (00:10→09:46)
[2017-10-16 03:55] LABS: Hemoglobin 15.5 gm/dL (13.0-17.0)
[2017-10-16] MEDS: Sod Chloride 0.9% Inj 1,000 ML IV.CONT SCH ×2 (06:21→16:43)
[2017-10-16] MEDS: Chlorhexidine Gluconate 2% 1 Pack (2 Cloths) TOPICAL SCH (06:22)
--- NOTE | 2017-10-16 07:13 | P.PNOP ---
Subjective Interval history: POD 1 s/p right hip hemiarthroplasty doing well. states no pain. reports has not been out of bed yet Physical Exam Vital signs: Vital Signs 10/15/17 08:48 10/15/17 09:00 10/15/17 09:15 Temperature 97.6 F Pulse Rate 89 79 70 Respiratory Rate 18 18 18 Blood Pressure 125/72 165/85 H 139/86 Pulse Oximetry 95 95 95 10/15/17 09:30 10/15/17 12:00 10/15/17 16:00 Temperature 97.6 F 98.1 F 98.3 F Pulse Rate 69 75 72 Respiratory Rate 18 20 21 Blood Pressure 124/70 143/78 H 130/75 Pulse Oximetry 95 90 L 96 10/15/17 20:00 10/16/17 00:00 10/16/17 04:00 Temperature 98 F 98.7 F 99.0 F Pulse Rate 28 L 66 58 L Respiratory Rate 14 25 H 22 Blood Pressure 123/77 145/81 H 139/88 Pulse Oximetry 96 97 99 Intake & Output 10/15/17 10/16/17 10/16/17 18:59 06:59 18:59 Intake Total 1500 / 1500 420 / 420 Output Total 2400 / 2400 1800 / 1800 Balance -900 / -900 -1380 / -1380 Intake: IV 350 / 350 NS Inj 1,000 ML @ 84 mls/hr IV. 200 / 200 CONT .[id number] [facility] Rx#:[id number] Ancef 2 GM Premix Inj 2 gm In 50 / 50 50 ml @ 0 mls/hr IV.SIG .STK- [facility] Rx#:[id number] Ancef Inj 2,000 MG In NS Inj 80 100 / 100 ML @ 200 mls/hr IV.SIG Q8H [facility] Rx#:[id number] Oral 420 / 420 Anesthesia Amount 1150 / 1150 Output: Estimated Blood Loss 50 / 50 Urine Amount (Catheter) 2350 / 2350 1800 / 1800 Indwelling Urethral Catheter 2350 / 2350 1800 / 1800 Other: # Bowel Movements 0 0 Narrative: RLE: dressings clean and dry. intact. NVI. +knee brace. - Urinary Catheter Management Indwelling Urethral Catheter Cath placed during this visit: yes Reason for continuing: Acute urinary retention Insertion date: 10/15/17 Insertion time: 14:00 Results - Labs CBC & Chem 7: 08/08/18 03:28 10/15/17 04:10 Laboratory Results - last 24 hr 10/16/17 03:28 Hgb 15.5 Hct 44.0 - Imaging Impressions Hip X-Ray 10/15/17 08:33 CONCLUSION: Postoperative right hip replacement with normal alignment. Assessment and Plan - Assessment and Plan 1) right femoral neck fracture s/p bipolar hemiarthroplasty - POD 1 -WBAT -daily dressing changes POD 2 with primapore. begin adding bacitracin on POD 10 -knee brace while in bed -posterior hip precautions -CM for SNF placement -f/u with [facility] in 2 weeks [id number] Prescription Drug Monitoring Database has been queried and verified prior to prescribing the controlled substance. Acute pain exception. This patient has normal, predicted, physiological, and time limited response to an adverse mechanical stimulus associated with surgery, trauma, or acute illness as described in my notes. There is a lack of alternative treatment options other than to include the prescribed narcotic treatment for this condition.
[2017-10-16] MEDS: Famotidine PF Inj 20 MG/2 ML Vial IV.PUSH SCH ×2 (08:53→22:54)
[2017-10-16] MEDS: Enoxaparin Inj 30 MG/0.3 ML Syringe SQ SCH ×2 (08:53→10:47)
[2017-10-16] MEDS: Senna/Docusate Sodium 8.6/50 MG Tablet PO SCH ×2 (08:53→22:55)
[2017-10-16] MEDS: ALPRAZolam 0.25 MG Tablet PO PRN (08:53)
[2017-10-16] MEDS: Calcium/Vitamin D 250/125 MG Tablet PO SCH ×3 (08:53→22:54)
[2017-10-16] MEDS ORDERED: Phenylephrine/NS 1000 MCG/10ML Syringe IV.PUSH ONE (12:00)
[2017-10-16] MEDS ORDERED: Lidocaine PF 1% Inj 5 ML Syringe INFILTRATN ONE (12:00)
[2017-10-16] MEDS: Labetalol HCl Inj 100 MG/20 ML Vial IV.PUSH PRN (12:24)
--- NOTE | 2017-10-16 15:43 | P.PNIM ---
Subjective Interval history: No pain. Feels hungry. Worried about what he will do after discharge. Physical Exam Vital signs: Vital Signs 10/15/17 16:00 10/15/17 20:00 10/16/17 00:00 Temperature 98.3 F 98 F 98.7 F Pulse Rate 72 28 L 66 Respiratory Rate 21 14 25 H Blood Pressure 130/75 123/77 145/81 H Pulse Oximetry 96 96 97 10/16/17 04:00 10/16/17 08:00 10/16/17 12:00 Temperature 99.0 F 97.9 F 98 F Pulse Rate 58 L 66 76 Respiratory Rate 22 22 29 H Blood Pressure 139/88 175/97 H 166/89 H Pulse Oximetry 99 100 100 Intake & Output 10/15/17 10/16/17 10/16/17 18:59 06:59 18:59 Intake Total 1500 / 1500 420 / 420 200 / 200 Output Total 2400 / 2400 1800 / 1800 Balance -900 / -900 -1380 / -1380 200 / 200 Intake: IV 350 / 350 200 / 200 NS Inj 1,000 ML @ 84 mls/hr IV. 200 / 200 CONT .[id number] [facility] Rx#:[id number] Ancef 2 GM Premix Inj 2 gm In 50 / 50 50 ml @ 0 mls/hr IV.SIG .STK- [facility] Rx#:[id number] Ancef Inj 2,000 MG In NS Inj 80 100 / 100 200 / 200 ML @ 200 mls/hr IV.SIG Q8H [facility] Rx#:[id number] Oral 420 / 420 Anesthesia Amount 1150 / 1150 Output: Estimated Blood Loss 50 / 50 Urine Amount (Catheter) 2350 / 2350 1800 / 1800 Indwelling Urethral Catheter 2350 / 2350 1800 / 1800 Other: # Bowel Movements 0 0 Narrative: GENERAL: This is a well-nourished, well-developed patient, in no apparent distress. CARDIOVASCULAR: Regular rate and rhythm . RESPIRATORY: Clear to auscultation. Breath sounds equal bilaterally. No wheezes , rales, or rhonchi. MUSCULOSKELETAL: Extremities without clubbing, cyanosis, or edema. NEURO: Alert and oriented [address] time with minimal expressive aphasia - Urinary Catheter Management Indwelling Urethral Catheter Cath placed during this visit: yes Reason for continuing: Acute urinary retention Insertion date: 10/15/17 Insertion time: 14:00 Results - Labs CBC & Chem 7: 10/16/17 03:28 10/15/17 04:10 Laboratory Results - last 24 hr 10/16/17 10/16/17 10/16/17 03:28 10:17 13:33 Hgb 15.5 Hct 44.0 POC Glucose 115 H 109 - Procedures 87 right hip hemiarthroplasty Assessment and Plan - Plan Transfer summary 72-year-old very pleasant gentleman presented to [facility] via EMS for an evaluation of a fall. The patient states that he was walking into the library when he started to become uncoordinated, states falling onto his right hip. The patient reports now having a persistent right hib pain. He denies any head trauma or loss of consciousness. The patient states that about the 1 months ago he has been in the emergency department at [facility] due to a facial droop but he left AMA at that time. He was having an MRI completed at the [facility] on October 10 that shows 2 cm peripheral enhancing mass within the left parietal lobe with a moderate amount of surrounding edema highly suspicious for metastatic disease. There is no history of primary malignancy which could have similar appearance although is considered less likely. The CT brain at the [facility] shows heterogenous hyperdense focal hemorrhagic mass at the right frontal lobe 2.4 cm in size with reactive vasogenic edema. The patient has also x-ray of the hip and pelvis that shows acute minimally displaced fracture at the right proximal femur likely intertrochanteric in location. The patient has been transferred to [facility] for higher level of care and neurosurgical/ orthopedic evaluation. 72-year-old white male transferred from [place] for evaluation for brain mass Brain mass -Repeat MRI reviewed -Oncology opinion primary brain tumor. -For brain biopsy today with Dr. Bliss -Vasogenic edema, continue Decadron every 6 hours -Neuro checks per unit protocol -CT chest abdomen and pelvis workup of primary lesion, essentially unremarkable except small lung nodule -Oncology consultation appreciated Right hip fracture -Appreciate orthopedic consultation -Patient is status post postoperative day #1 right hip hemiarthroplasty -PT/OT Continue postoperative care, pain control COPD, chronic -No exacerbation -DuoNeb's as needed DVT GI prophylaxis -Teds SCDs -Pharmacological DVT prophylaxis per oncology/neurosurgery, hold now due to brain mass -Pepcid
[2017-10-16] MEDS ORDERED: Gelatin Size 100 Topical Foam ONE (16:38)
[2017-10-16] MEDS ORDERED: Thrombin Topical Soln 5,000 UNIT Vial TOPICAL ONE ×2 (16:38→19:12)
[2017-10-16] MEDS ORDERED: Lidocaine 1%/Epinephrine 1:100,000 Inj 20 ML Vial ONE (16:38)
[2017-10-16] MEDS ORDERED: fentaNYL Citrate Inj 100 MCG/2 ML Ampul ONE (18:54)
[2017-10-16] MEDS ORDERED: Sugammadex Inj 200 MG/2 ML Vial IV.PUSH ONE (18:56)
[2017-10-16] MEDS ORDERED: Bisacodyl 10 MG Supp RECTAL PRN (20:28)
--- NOTE | 2017-10-16 20:47 | P.OP ---
Date of procedure: 10/16/17 Procedure: Left parietal craniectomy, resection neoplasm Intraoperative stereotactic guidance Anesthesia: GETA Surgeon: Bret Bliss MD Decorating Supervisor: Fredo Greco Estimated blood loss (mL): 100 Pathology: other (Left parietal neoplasm sent for remnant section pathology) Operation and Findings: Indications: 72-year-old male with recent onset seizure activity, right hemiparesis. Preoperative MRI with left parietal lesion consistent with metastatic neoplasm. Findings: Moderately firm somewhat granular appearing lesion deep to the left central sulcus. Procedure in detail: The patient was brought into the operating room and general endotracheal anesthesia induced without difficulty. Lines were established by anesthesia TIARA hose and sequential compression devices were in place Dang catheter was in place Appropriate timeout procedure was performed with all personal present and in agreement The patient was positioned in supine position with all extremities appropriately padded. The head was placed in the 3-point fixation device and secured to the operating room table with the neck slightly flexed and the head mildly rotated. The BrainLab system was registered with the laser facial registration system and landmarks verified. The BrainLab system was used to bakari the initial scalp flap and craniotomy opening, and was further used extensively during the procedure to guide the resection of the neoplasm. The hair overlying the scalp incision was shaved with clippers, and the operative site was sterilely prepped and draped. 1% Xylocaine with epinephrine was used for local infiltration over the incision site which was made in a curvilinear fashion over the left anterior parietal region and carried sharply down to the cranium. The scalp flap was elevated with the periosteal elevator and retracted with large scalp hooks. The homicide squad commanding officer was used to place a bur hole which was enlarged initially using the 3 mm Kerrison. The dura was opened in a cruciate fashion and the edges retracted with 4-0 Nurolon suture. The BrainLab Steri-Strip tactic system was used to determine the location of the initial incision and bur hole opening. It was subsequently used to determine the best trajectory to the neoplasm for biopsy. Upon direct examination of the cortical surface, the major blood vessels within the sulcus were visualized. The neoplasm was located at the deep border of the sulcus. It was felt safest to approach the neoplasm under direct visualization to avoid a trajectory through the adjacent tissue and to avoid any injury to the vasculature. It was thus elected to perform a small craniectomy at the bur hole site with the 3 mm bone bur and the Kerrison rongeur and expose the neoplasm directly at the deep aspect of the sulcus under microscope visualization. The microdissectors and microscissors and bipolar were used to open the arachnoid around the sulcus and the vasculature was carefully preserved. The sulcus opened easily and the BrainMedClimate system was used to localize the entry point to the neoplasm. There was a very thin layer of parenchyma at the deep sulcus overlying the neoplasm. The microdissectors were used to separate the adjacent parenchyma away from the border of the neoplasm. The deep aspect of the neoplasm was resected and sent for frozen section. Once this was done, there was a very clean dissection plane around the remainder of the neoplasm, and since there was good visualization of the lesion , it was elected to proceed with resection of the lesion through the small bur hole and craniectomy site. The neoplasm was circumferentially from the surrounding tissue with the [place] dissectors and the bipolar forceps with any bridging vessels coagulated with the bipolar forceps and incised with the microscissors. Any major vascular structures were carefully preserved. Cottonoid patties were used as needed to maintain the resection plane surrounding the tumor. Once the periphery of the tumor was delineated, the remaining central portion was gradually debulked using the tissue biopsy forceps and the suction with bleeding controlled with bipolar forceps. The periphery of the tumor was then removed. A gross total resection of the lesion was achieved. The tumor resection site was carefully examined and bleeding carefully controlled. There was no significant bleeding at the time of closure. The brain was soft and pulsatile at the time of closure The closure was performed with 4-0 Nurolon interrupted and running for the dura , a single circular titanium maxillofacial plate and screws to cover the craniectomy site, and 2-0 Vicryl for the galeal closure, [place] for the skin closure. A dressing of sterile Telfa, 4 x 4's, and a head stockinette were placed. The patient was turned back into supine position on the operating room table The 3-point head fixation device was removed The patient was taken to recovery room in stable condition All counts were correct at the end of the case Estimated blood loss was 100 cc. Specimen of the neoplasm was sent to pathology for permanent section
[2017-10-16] MEDS ORDERED: Senna/Docusate Sodium 8.6/50 MG Tablet PO SCH (21:00)
[2017-10-16] MEDS ORDERED: *morphine SULFATE 4 MG/ML PERIprocedure ONLY ONE (21:16)
[2017-10-17] MEDS: levETIRAcetam 500 MG Tablet PO SCH ×3 (02:50→21:10)
[2017-10-17] MEDS: Morphine Inj 4 MG/ML Vial IV.PUSH PRN ×2 (02:50→09:08)
[2017-10-17] MEDS: Sod Chloride 0.9% Inj 1,000 ML IV.CONT SCH (02:51)
[2017-10-17] MEDS: Chlorhexidine Gluconate 2% 1 Pack (2 Cloths) TOPICAL SCH (04:33)
--- NOTE | 2017-10-17 08:14 | P.PNOP ---
Subjective Interval history: POD 2 s/p right hip hemiarthroplasty went for brain biopsy yesterday and had tumor removed. now unable speak and flacid on right side. Physical Exam Vital signs: Vital Signs 10/16/17 12:00 10/16/17 16:14 10/16/17 20:15 Temperature 98 F 96.8 F L Pulse Rate 76 74 71 Respiratory Rate 29 H 18 15 Blood Pressure 166/89 H 156/81 H 159/94 H Pulse Oximetry 100 92 L 10/16/17 20:30 10/16/17 20:45 10/16/17 21:00 Temperature Pulse Rate 85 81 79 Respiratory Rate 15 15 22 Blood Pressure 165/99 H 185/83 H 166/102 H Pulse Oximetry 98 94 L 94 L 10/16/17 21:15 10/16/17 21:30 10/16/17 22:00 Temperature 98.9 F Pulse Rate 76 74 54 L Respiratory Rate 24 16 15 Blood Pressure 169/105 H 165/96 H 168/95 H Pulse Oximetry 95 95 98 10/16/17 23:00 10/17/17 00:00 10/17/17 01:00 Temperature 98.6 F 98.5 F Pulse Rate 50 L 52 L 50 L Respiratory Rate 12 13 12 Blood Pressure 152/89 H 143/77 H 152/79 H Pulse Oximetry 100 91 L 99 10/17/17 02:00 10/17/17 03:00 10/17/17 04:00 Temperature 98.7 F Pulse Rate 72 78 46 L Respiratory Rate 12 Blood Pressure 141/89 H 141/89 H 160/81 H Pulse Oximetry 89 L 90 L 100 10/17/17 05:00 10/17/17 06:00 Temperature 98.5 F 98.9 F Pulse Rate 50 L 58 L Respiratory Rate 13 Blood Pressure 157/83 H 151/86 H Pulse Oximetry 100 100 Intake & Output 10/16/17 10/17/17 10/17/17 18:59 06:59 18:59 Intake Total 200 / 200 2000 / 2000 1000 / 1000 Output Total 1300 / 1300 1600 / 1600 Balance -1100 / -1100 400 / 400 1000 / 1000 Weight 56.2 kg Intake: IV 200 / 200 1000 / 1000 NS + KCl 20 mEq Inj 1,000 ML @ 1000 / 1000 100 mls/hr IV.CONT .Q10H [facility] Rx #:[id number] Ancef Inj 2,000 MG In NS Inj 80 200 / 200 ML @ 200 mls/hr IV.SIG Q8H [facility] Rx#:[id number] Anesthesia Amount 1999 Output: Urine 600 / 600 Estimated Blood Loss 200 / 200 Urine Amount (Catheter) 1300 / 1300 800 / 800 Indwelling Urethral Catheter 1300 / 1300 800 / 800 Other: # Bowel Movements 0 Narrative: RLE: dressings clean and dry. intact. +CKS - Urinary Catheter Management Indwelling Urethral Catheter Cath placed during this visit: yes Reason for continuing: Hourly intake/output Insertion date: 10/15/17 Insertion time: 14:00 Results - Labs CBC & Chem 7: 10/16/17 03:28 10/15/17 04:10 Laboratory Results - last 24 hr 10/16/17 10/16/17 10:17 13:33 POC Glucose 115 H 109 - Procedures 87 right hip hemiarthroplasty Assessment and Plan - Assessment and Plan 1) right femoral neck fracture s/p bipolar hemiarthroplasty - POD 2 -WBAT -daily dressing changes POD 2 with primapore. begin adding bacitracin on POD 10 -knee brace while in bed -posterior hip precautions -CM for SNF placement -f/u with [facility] in 2 weeks E-[facility] Prescription Drug Monitoring Database has been queried and verified prior to prescribing the controlled substance. Acute pain exception. This patient has normal, predicted, physiological, and time limited response to an adverse mechanical stimulus associated with surgery, trauma, or acute illness as described in my notes. There is a lack of alternative treatment options other than to include the prescribed narcotic treatment for this condition.
[2017-10-17 09:05] LABS: Hemoglobin 13.9 gm/dL (13.0-17.0); Mean Platelet Volume 8.8 fL (7.0-11.0); Platelet Count 217 th/mm3 (150-450); Red Cell Distribution Width 13.2 % (11.6-17.2); White Blood Count 16.8 th/mm3 (4.0-11.0)
--- NOTE | 2017-10-17 09:14 | CT ---
EXAM DATE: 10/17/2017 8:38 AM EDT AGE/SEX: 72 years / Male INDICATIONS: Post-op brain tumor. Right side flaccid and expressive aphasia. CLINICAL DATA: This is the patient's initial encounter. Patient reports that signs and symptoms have been present for 1 day and indicates a pain score of Nonresponsive. MEDICAL/SURGICAL HISTORY: Chronic obstructive pulmonary disease. brain tumor . brain tumor surgery RADIATION DOSE: 37.19 CTDI (mGy) [place] [facility] [place]. . TECHNIQUE: CT of the head without contrast. Using automated exposure control and adjustment of the mA and/or kV according to patient size, radiation dose was kept as low as reasonably achievable to ob tain optimal diagnostic quality images. DICOM format image data is available electronically for revi ew and comparison. FINDINGS: Cerebrum: Left-sided craniotomy. There is some prominent pneumocephaly anteriorly in the frontal reg ions. Large amount of vasogenic edema surrounds the left frontal parietal mass. Minimal subarachnoid hemorrhage. Mass appears unchanged. Posterior Fossa: The cerebellum and brainstem are intact. The 4th ventricle is midline. The cerebe llopontine angle is unremarkable. Extracranial: The visualized portion of the orbits is intact. Skull: The calvaria is intact. No evidence of skull fracture. CONCLUSION: 1. Left-sided craniotomy with left frontal parietal mass appearing unchanged. Adjacent vasogenic tory ma appears unchanged. 2. Postoperative changes with pneumocephaly. No midline shift. . Electronically signed by: Chase Abraham MD 10/17/2017 9:13 AM EDT
[2017-10-17 09:18] LABS: Albumin 2.7 g/dL (3.4-5.0); Anion Gap 6 meq/L (5-15); Aspartate Aminotransferase 27 U/L (15-37); Blood Urea Nitrogen 14 mg/dL (7-18); Calcium 8.4 mg/dL (8.5-10.1); Chloride 104 meq/L (98-107); Glomerular Filtration Rate Greater Than 89 mL/min (>89); Glucose,Random 103 mg/dL (74-106); Potassium 4.2 meq/L (3.5-5.1); Sodium 138 meq/L (136-145)
[2017-10-17 09:19] LABS: Alanine Aminotransferase 23 U/L (12-78)
[2017-10-17 09:21] LABS: Alkaline Phosphatase 69 U/L (45-117); Total Protein 5.8 g/dL (6.4-8.2)
[2017-10-17] MEDS: Calcium/Vitamin D 250/125 MG Tablet PO SCH ×3 (09:47→21:10)
[2017-10-17] MEDS: Enoxaparin Inj 30 MG/0.3 ML Syringe SQ SCH (09:47)
[2017-10-17] MEDS: Senna/Docusate Sodium 8.6/50 MG Tablet PO SCH ×2 (09:48→21:09)
[2017-10-17] MEDS: Famotidine PF Inj 20 MG/2 ML Vial IV.PUSH SCH ×2 (09:48→21:10)
--- NOTE | 2017-10-17 10:34 | P.PNCC ---
Subjective Subjective Remarks/Hospital Course: 72-year-old very pleasant gentleman presented to [facility] via EMS for an evaluation of a fall. The patient states that he was walking into the library when he started to become uncoordinated, states falling onto his right hip. The patient reports now having a persistent right hib pain. He denies any head trauma or loss of consciousness. The patient states that about the 1 months ago he has been in the emergency department at [facility] due to a facial droop but he left AMA at that time. He was having an MRI completed at the [facility] on October 10 that shows 2 cm peripheral enhancing mass within the left parietal lobe with a moderate amount of surrounding edema highly suspicious for metastatic disease. There is no history of primary malignancy which could have similar appearance although is considered less likely. The CT brain at the [facility] shows heterogenous hyperdense focal hemorrhagic mass at the right frontal lobe 2.4 cm in size with reactive vasogenic edema. The patient has also x-ray of the hip and pelvis that shows acute minimally displaced fracture at the right proximal femur likely intertrochanteric in location. The patient has been transferred to [facility] for higher level of care and neurosurgical/ orthopedic evaluation. SUBJ: 10/15: Patient seen after right hip hemiarthroplasty. Breathing comfortably pain adequately controlled. Anxious about the brain tumor. Oncology Dr. Seay concerned about primary brain tumor. 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 Continues to have right facial droop 10/17 Critical care reconsult note Critical Care reconsulted for new onset right hemiparesis, aphasia. Patient underwent Left parietal craniectomy, resection neoplasm yesterday 10/16/[address] Bliss for suspected primary brain tumor. CT head today showed prominent pneumocephaly anteriorly in the frontal regions and large vasogenic edema surrounding the left frontoparietal mass. Minimal subarachnoid hemorrhage. Patient is also POD 2 s/p right hip hemiarthroplasty Objective Vital Signs / I&O: Vital Signs 10/16/17 12:00 10/16/17 16:14 10/16/17 20:15 Temperature 98 F 96.8 F L Pulse Rate 76 74 71 Respiratory Rate 29 H 18 15 Blood Pressure 166/89 H 156/81 H 159/94 H Pulse Oximetry 100 92 L 10/16/17 20:30 10/16/17 20:45 10/16/17 21:00 Temperature Pulse Rate 85 81 79 Respiratory Rate 15 15 22 Blood Pressure 165/99 H 185/83 H 166/102 H Pulse Oximetry 98 94 L 94 L 10/16/17 21:15 10/16/17 21:30 10/16/17 22:00 Temperature 98.9 F Pulse Rate 76 74 54 L Respiratory Rate 24 16 15 Blood Pressure 169/105 H 165/96 H 168/95 H Pulse Oximetry 95 95 98 10/16/17 23:00 10/17/17 00:00 10/17/17 01:00 Temperature 98.6 F 98.5 F Pulse Rate 50 L 52 L 50 L Respiratory Rate 12 13 12 Blood Pressure 152/89 H 143/77 H 152/79 H Pulse Oximetry 100 91 L 99 10/17/17 02:00 10/17/17 03:00 10/17/17 04:00 Temperature 98.7 F Pulse Rate 72 78 46 L Respiratory Rate 12 Blood Pressure 141/89 H 141/89 H 160/81 H Pulse Oximetry 89 L 90 L 100 10/17/17 05:00 10/17/17 06:00 10/17/17 08:00 Temperature 98.5 F 98.9 F 97.9 F Pulse Rate 50 L 58 L 70 Respiratory Rate 13 12 Blood Pressure 157/83 H 151/86 H 151/86 H Pulse Oximetry 100 100 96 Intake & Output 10/16/17 10/17/17 10/17/17 18:59 06:59 18:59 Intake Total 200 / 200 1999 / 1999 1000 / 1000 Output Total 1300 / 1300 1600 / 1600 Balance -1100 / -1100 400 / 400 1000 / 1000 Weight 56.2 kg Intake: IV 200 / 200 1000 / 1000 NS + KCl 20 mEq Inj 1,000 ML @ 1000 / 1000 100 mls/hr IV.CONT .Q10H [facility] Rx #:[id number] Ancef Inj 2,000 MG In NS Inj 80 200 / 200 ML @ 200 mls/hr IV.SIG Q8H [facility] Rx#:[id number] Anesthesia Amount 1999 Output: Urine 600 / 600 Estimated Blood Loss 200 / 200 Urine Amount (Catheter) 1300 / 1300 800 / 800 Indwelling Urethral Catheter 1300 / 1300 800 / 800 Other: # Bowel Movements 0 Result Diagrams: 10/17/17 08:30 10/17/17 08:30 Objective Remarks: - Constitutional Anxious. Aphasic, right hemiplegia - Routine HEENT Exam Head: normocephalic, atraumatic, left craniectomy incision CDI, willy intact Eye: PERRL ENT: Right facial droop present - Routine Neck Exam Supple. No JVD, carotid bruit - Routine Respiratory Exam No accessory muscle use, rhonchi, wheezes - Routine Cardiovascular Exam RRR, S1, S2 - Routine Abdominal Exam Soft, normoactive bowel sounds. No tenderness - Routine Extremities Exam s/p right hip hemiarthroplasty. - Routine Skin Exam Right hip incision dressing intact - Routine Neurological Exam Alert, awake, facial asymmetry right-sided facial droop. Expressive aphasia +. 0/5 power right upper and lower extremity, sensation intact Assessment and Plan - Assessment and Plan Plan: A/P New onset right hemiplegia and aphasia Brain mass -CT of the head stat today shows severe vasogenic edema surrounding the left parietal mass, bilateral frontal pneumocephaly -Discussed with neurosurgery, continue Decadron for vasogenic edema. -Neurosurgery at this time does not recommend 100% nonrebreather, or mannitol -Follow-up on biopsy. Oncology following Dr. Seay -Neurosurgery Dr. Bliss now covered by Dr. Soler -Neuro checks per unit protocol -Brian for seizure prophylaxis -CT chest abdomen and pelvis workup of primary lesion, essentially unremarkable except small lung nodule -Oncology consultation appreciated, suspected primary brain neoplasm -PT/OT/Speech Hip fracture -Orthopedic following -Patient is status post right hip hemiarthroplasty today -PT/OT COPD -No exacerbation -DuoNeb's as needed GI: -Diet per speech recommendation DVT GI prophylaxis -Teds SCDs -Hold Pharmacological DVT prophylaxis due to minimal subarachnoid hemorrhage -Pepcid Critical Care: 32 MIN Status post brain neoplasm resection now critically ill with new aphasia and right hemiplegia. CT shows significant vasogenic edema and minimal subarachnoid hemorrhage. Continue current treatment monitor closely for neuro deterioration
[2017-10-17] MEDS ORDERED: levETIRAcetam 500mg/100mL Inj 100 ML IV.SIG SCH (11:00)
--- NOTE | 2017-10-17 17:30 | P.PNPL ---
Subjective Interval history: 72 YOWM with Severe COPD, Left parietal mass Had Rt hip hemiarthroplasty Breathing better Anxious had parietal lobe bx Developed flacidity of rt ext Sluured speech Feeds himself Physical Exam Vital signs: Vital Signs 10/16/17 20:15 10/16/17 20:30 10/16/17 20:45 Temperature 96.8 F L Pulse Rate 71 85 81 Respiratory Rate 15 15 15 Blood Pressure 159/94 H 165/99 H 185/83 H Pulse Oximetry 98 94 L 10/16/17 21:00 10/16/17 21:15 10/16/17 21:30 Temperature Pulse Rate 79 76 74 Respiratory Rate 22 24 16 Blood Pressure 166/102 H 169/105 H 165/96 H Pulse Oximetry 94 L 95 95 10/16/17 22:00 10/16/17 23:00 10/17/17 00:00 Temperature 98.9 F 98.6 F Pulse Rate 54 L 50 L 52 L Respiratory Rate 15 12 13 Blood Pressure 168/95 H 152/89 H 143/77 H Pulse Oximetry 98 100 91 L 10/17/17 01:00 10/17/17 02:00 10/17/17 03:00 Temperature 98.5 F Pulse Rate 50 L 72 78 Respiratory Rate 12 Blood Pressure 152/79 H 141/89 H 141/89 H Pulse Oximetry 99 89 L 90 L 10/17/17 04:00 10/17/17 05:00 10/17/17 06:00 Temperature 98.7 F 98.5 F 98.9 F Pulse Rate 46 L 50 L 58 L Respiratory Rate 12 13 Blood Pressure 160/81 H 157/83 H 151/86 H Pulse Oximetry 100 100 100 10/17/17 08:00 10/17/17 12:00 10/17/17 16:00 Temperature 97.9 F 97.6 F 97.8 F Pulse Rate 70 62 72 Respiratory Rate 12 14 20 Blood Pressure 151/86 H 132/72 110/64 Pulse Oximetry 96 92 L 97 10/17/17 17:11 Temperature Pulse Rate 72 Respiratory Rate 16 Blood Pressure Pulse Oximetry Intake & Output 10/16/17 10/17/17 10/17/17 18:59 06:59 18:59 Intake Total 200 / 200 2000 / 2000 1000 / 1000 Output Total 1300 / 1300 1600 / 1600 Balance -1100 / -1100 400 / 400 1000 / 1000 Weight 56.2 kg Intake: IV 200 / 200 1000 / 1000 NS + KCl 20 mEq Inj 1,000 ML @ 1000 / 1000 100 mls/hr IV.CONT .Q10H [facility] Rx #:[id number] Ancef Inj 2,000 MG In NS Inj 80 200 / 200 ML @ 200 mls/hr IV.SIG Q8H [facility] Rx#:[id number] Anesthesia Amount 2000 / 1999 Output: Urine 600 / 600 Estimated Blood Loss 200 / 200 Urine Amount (Catheter) 1300 / 1300 800 / 800 Indwelling Urethral Catheter 1300 / 1300 800 / 800 Other: # Bowel Movements 0 GENERAL: Elderly Wm, NAD SKIN: Warm and dry. HEAD: Normocephalic. EYES: No scleral icterus. No injection or drainage. NECK: Supple, trachea midline. No JVD or lymphadenopathy. CARDIOVASCULAR: Regular rate and rhythm without murmurs, gallops, or rubs. RESPIRATORY: Breath sounds equal bilaterally. No accessory muscle use. GASTROINTESTINAL: Abdomen soft, non-tender, nondistended. MUSCULOSKELETAL: No cyanosis, or edema. Flaccid rt side BACK: Nontender without obvious deformity. No CVA tenderness. - Urinary Catheter Management Indwelling Urethral Catheter Cath placed during this visit: yes Reason for continuing: Hourly intake/output Insertion date: 10/15/17 Insertion time: 14:00 Assessment and Plan - Plan IMPRESSION: Severe COPD Left parietal mass Small Lung nodule Spleeinc nodule Nicotine use S/P Rt hip hemiarthroplasty S/P Brain bx Flacid rt side PLAN: Aerosol nebs Supplement 02 Smoking cessation Neurosurgery, oncology following. Check bx results
--- NOTE | 2017-10-17 18:50 | P.PNNS ---
Subjective Interval history: Pt awake and alert. Severe expressive aphasia but able to get out most words if talks slow. Right hemiplegia. <Chase Starr - Last Filed: 10/17/17 18:41> Physical Exam Vital signs: Vital Signs 10/16/17 20:15 10/16/17 20:30 10/16/17 20:45 Temperature 96.8 F L Pulse Rate 71 85 81 Respiratory Rate 15 15 15 Blood Pressure 159/94 H 165/99 H 185/83 H Pulse Oximetry 98 94 L 10/16/17 21:00 10/16/17 21:15 10/16/17 21:30 Temperature Pulse Rate 79 76 74 Respiratory Rate 22 24 16 Blood Pressure 166/102 H 169/105 H 165/96 H Pulse Oximetry 94 L 95 95 10/16/17 22:00 10/16/17 23:00 10/17/17 00:00 Temperature 98.9 F 98.6 F Pulse Rate 54 L 50 L 52 L Respiratory Rate 15 12 13 Blood Pressure 168/95 H 152/89 H 143/77 H Pulse Oximetry 98 100 91 L 10/17/17 01:00 10/17/17 02:00 10/17/17 03:00 Temperature 98.5 F Pulse Rate 50 L 72 78 Respiratory Rate 12 Blood Pressure 152/79 H 141/89 H 141/89 H Pulse Oximetry 99 89 L 90 L 10/17/17 04:00 10/17/17 05:00 10/17/17 06:00 Temperature 98.7 F 98.5 F 98.9 F Pulse Rate 46 L 50 L 58 L Respiratory Rate 12 13 Blood Pressure 160/81 H 157/83 H 151/86 H Pulse Oximetry 100 100 100 10/17/17 08:00 10/17/17 12:00 10/17/17 16:00 Temperature 97.9 F 97.6 F 97.8 F Pulse Rate 70 62 72 Respiratory Rate 12 14 20 Blood Pressure 151/86 H 132/72 110/64 Pulse Oximetry 96 92 L 97 10/17/17 17:11 10/17/17 18:08 Temperature Pulse Rate 72 Respiratory Rate 16 18 Blood Pressure Pulse Oximetry Intake & Output 10/16/17 10/17/17 10/17/17 18:59 06:59 18:59 Intake Total 200 / 200 1999 / 1999 Output Total 1300 / 1300 1600 / 1600 1450 / 1450 Balance -1100 / -1100 400 / 400 550 / 550 Weight 56.2 kg Intake: IV 200 / 200 1999 NS + KCl 20 mEq Inj 1,000 ML @ 1999 100 mls/hr IV.CONT .Q10H [facility] Rx #:[id number] Ancef Inj 2,000 MG In NS Inj 80 200 / 200 ML @ 200 mls/hr IV.SIG Q8H [facility] Rx#:[id number] Anesthesia Amount 1999 Output: Urine 600 / 600 Estimated Blood Loss 200 / 200 Urine Amount (Catheter) 1300 / 1300 800 / 800 1450 / 1450 Indwelling Urethral Catheter 1300 / 1300 800 / 800 1450 / 1450 Other: # Bowel Movements 0 - Constitutional mild distress (Given his overall condition pt is very frustrated.), thin - Routine HEENT Exam Head: Absent: normocephalic, atraumatic (Left craniotomy inicison is clean and dry without signs of infection.) Eye: Present: PERRL (Pupils 3mm bilaterally reactive bilaterally.). Absent: conjunctival icterus - Routine Neck Exam Present: trachea midline - Routine Respiratory Exam Present: CTA bilaterally. Absent: respiratory distress, rhonchi, wheezes - Routine Cardiovascular Exam Present: RRR, S1, S2. Absent: murmur - Routine Abdominal Exam Present: soft, normoactive bowel sounds. Absent: tenderness, distended - Routine Skin Exam Absent: cyanosis, erythema (Incision clean and dry without signs of infection.) - Routine Neurological Exam Present: alert, oriented X3, sensory deficit (Right side.), motor deficit ( Right hemiplegia.), facial asymmetry (Right facial paresis.). Absent: moving all extremities (Right hemiplegia.), normal speech (Severe expressive aphasia.) - Detailed Neurological Exam: Coma Scale Eye Opening: Spontaneous Verbal Response: Oriented Motor Response: Obey commands Warner Coma Scale Total: 15 - Routine Psychiatric Exam Present: agitated (Pt with mild agitation related to his deficits.) - Urinary Catheter Management Indwelling Urethral Catheter Cath placed during this visit: yes Reason for continuing: Hourly intake/output Insertion date: 10/15/17 Insertion time: 14:00 <Chase Starr - Last Filed: 10/17/17 18:41> Vital signs: Vital Signs 10/17/17 12:00 10/17/17 16:00 10/17/17 17:11 Temperature 97.6 F 97.8 F Pulse Rate 62 72 72 Respiratory Rate 14 20 16 Blood Pressure 132/72 110/64 Pulse Oximetry 92 L 97 10/17/17 18:08 10/17/17 20:00 10/17/17 22:20 Temperature 98.2 F Pulse Rate 62 71 Respiratory Rate 18 15 22 Blood Pressure 112/68 Pulse Oximetry 92 L 97 10/18/17 00:00 10/18/17 04:00 10/18/17 04:42 Temperature 97.7 F 97.5 F L Pulse Rate 58 L 53 L 62 Respiratory Rate 15 14 16 Blood Pressure 125/65 164/85 H Pulse Oximetry 92 L 93 L 10/18/17 09:15 Temperature Pulse Rate 54 L Respiratory Rate 18 Blood Pressure Pulse Oximetry Intake & Output 10/17/17 10/18/17 10/18/17 18:59 06:59 18:59 Intake Total 1999 1480 / 1480 Output Total 1450 / 1450 2150 / 2150 Balance 550 / 550 -670 / -670 Weight 58.3 kg Intake: IV 1999 1000 / 1000 NS + KCl 20 mEq Inj 1,000 ML @ 1999 / 1999 1000 / 1000 100 mls/hr IV.CONT .Q10H [facility] Rx #:[id number] Oral 480 / 480 Output: Urine Amount (Catheter) 1450 / 1450 2150 / 2150 Indwelling Urethral Catheter 1450 / 1450 2150 / 2150 - Urinary Catheter Management Indwelling Urethral Catheter Cath placed during this visit: no <Leonardo Soler - Last Filed: 10/18/17 09:42> Assessment and Plan - Assessment (1) Brain mass Code(s): G93.9 - Disorder of brain, unspecified Status: Acute - Plan Impression: Solitary left parietal neoplasm, s/p Left parietal craniectomy, resection neoplasm Plan: Continue with speech therapy and rehab. Advance diet per speech therapy recommendations Monitor path results, currently pending. <Chase Starr - Last Filed: 10/17/17 18:41> - Attending Attestation The exam, history, and the medical decision-making described in the above note were completed with the assistance of the mid-level provider. I reviewed and agree with the findings presented. I attest that I had a [id number] encounter with the patient on the same day, and personally performed and documented my assessment and findings in the medical record. <Leonardo Soler - Last Filed: 10/18/17 09:42>
[2017-10-17] MEDS: Acetaminophen 325 MG Tablet PO PRN (21:06)
[2017-10-18] MEDS: Chlorhexidine Gluconate 2% 1 Pack (2 Cloths) TOPICAL SCH (04:36)
[2017-10-18] MEDS: Acetaminophen 325 MG Tablet PO PRN ×2 (06:35→16:09)
[2017-10-18] MEDS: Famotidine PF Inj 20 MG/2 ML Vial IV.PUSH SCH ×2 (10:06→21:30)
[2017-10-18] MEDS: levETIRAcetam 500 MG Tablet PO SCH (10:07)
[2017-10-18] MEDS: Senna/Docusate Sodium 8.6/50 MG Tablet PO SCH ×2 (10:07→21:30)
[2017-10-18] MEDS: Calcium/Vitamin D 250/125 MG Tablet PO SCH ×3 (10:07→17:52)
--- NOTE | 2017-10-18 16:18 | P.PNNS ---
Subjective Interval history: No acute events overnight Physical Exam Vital signs: Vital Signs 10/17/17 17:11 10/17/17 18:08 10/17/17 20:00 Temperature 98.2 F Pulse Rate 72 62 Respiratory Rate 16 18 15 Blood Pressure 112/68 Pulse Oximetry 92 L 10/17/17 22:20 10/18/17 00:00 10/18/17 04:00 Temperature 97.7 F 97.5 F L Pulse Rate 71 58 L 53 L Respiratory Rate 22 15 14 Blood Pressure 125/65 164/85 H Pulse Oximetry 97 92 L 93 L 10/18/17 04:42 10/18/17 08:00 10/18/17 09:15 Temperature 98.0 F Pulse Rate 62 83 54 L Respiratory Rate 16 15 18 Blood Pressure 168/81 H Pulse Oximetry 93 L 10/18/17 12:00 Temperature 98.2 F Pulse Rate 95 H Respiratory Rate 18 Blood Pressure 144/82 H Pulse Oximetry 94 L Intake & Output 10/17/17 10/18/17 10/18/17 18:59 06:59 18:59 Intake Total 1999 1480 / 1480 1000 / 1000 Output Total 1450 / 1450 2150 / 2150 Balance 550 / 550 -670 / -670 1000 / 1000 Weight 58.3 kg Intake: IV 1999 1000 / 1000 1000 / 1000 NS + KCl 20 mEq Inj 1,000 ML @ 1999 / 1999 1000 / 1000 1000 / 1000 100 mls/hr IV.CONT .Q10H [facility] Rx #:[id number] Oral 480 / 480 Output: Urine Amount (Catheter) 1450 / 1450 2150 / 2150 Indwelling Urethral Catheter 1450 / 1450 2150 / 2150 Narrative: Opens eyes spontaneously PERRL EOMI Moderate expressive aphasia Dense right hemiplegia Right facial droop Follows commands left upper and left lower extremity with full strength Sensation intact throughout all extremities Incision: clean, dry, intact - Urinary Catheter Management Indwelling Urethral Catheter Cath placed during this visit: yes Reason for continuing: Hourly intake/output Insertion date: 10/15/17 Insertion time: 14:00 Assessment and Plan - Assessment (1) Brain mass Code(s): G93.9 - Disorder of brain, unspecified Status: Acute - Plan Impression: Mr. Delacruz is a 72 y/o male with a history of multiple sclerosis who underwent a left frontal craniotomy for biopsy/resection of a left frontal enhancing mass by Dr. Bliss on 10/16/17. Operative report indicated a gross total resection of the lesion. Pathology remains pending. Post-operatively, Mr. 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 Post-operative CT demonstrates small amount of blood product in the operative bed and persistent vasogenic edema. Extensive time spent at bedside discussing his clinical history and hospital course. He is expectedly frustrated by his expressive aphasia and right sided hemiplegia, which are likely to improve slowly with rehab and time. Plan: Continue with speech therapy and rehab. Advance diet per speech therapy recommendations Monitor path results, remains pending. Oncology consultation when pathology has resulted. Given significant amount of vasogenic edema, would recommend a slow dexamethasone taper (i.e. over 3 weeks).
--- NOTE | 2017-10-18 16:37 | P.PNCC ---
Subjective Subjective Remarks/Hospital Course: 72-year-old very pleasant gentleman presented to [facility] via EMS for an evaluation of a fall. The patient states that he was walking into the library when he started to become uncoordinated, states falling onto his right hip. The patient reports now having a persistent right hib pain. He denies any head trauma or loss of consciousness. The patient states that about the 1 months ago he has been in the emergency department at [facility] due to a facial droop but he left AMA at that time. He was having an MRI completed at the [facility] on October 10 that shows 2 cm peripheral enhancing mass within the left parietal lobe with a moderate amount of surrounding edema highly suspicious for metastatic disease. There is no history of primary malignancy which could have similar appearance although is considered less likely. The CT brain at the [facility] shows heterogenous hyperdense focal hemorrhagic mass at the right frontal lobe 2.4 cm in size with reactive vasogenic edema. The patient has also x-ray of the hip and pelvis that shows acute minimally displaced fracture at the right proximal femur likely intertrochanteric in location. The patient has been transferred to [facility] for higher level of care and neurosurgical/ orthopedic evaluation. SUBJ: 10/15: Patient seen after right hip hemiarthroplasty. Breathing comfortably pain adequately controlled. Anxious about the brain tumor. Oncology Dr. Seay concerned about primary brain tumor. 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 Continues to have right facial droop 10/17 Critical care reconsult note Critical Care reconsulted for new onset right hemiparesis, aphasia. Patient underwent Left parietal craniectomy, resection neoplasm yesterday 10/16/[address] Bliss for suspected primary brain tumor. CT head today showed prominent pneumocephaly anteriorly in the frontal regions and large vasogenic edema surrounding the left frontoparietal mass. Minimal subarachnoid hemorrhage. Patient is also POD 2 s/p right hip hemiarthroplasty 10/18: Patient is alert and awake. Mild expressive aphasia persists. Enunciation improved. Right arm flaccid but some sensory function is returned. Protects airway well swallow eval successful but with some drooling. Update 1805 hours: Patient found unresponsive but awakened after 10 minutes after stimulation. Right side and face remains flaccid. Speech is more garbled. Suspect he had a seizure. Will start AED and get CT head. Objective Vital Signs / I&O: Vital Signs 10/17/17 17:11 10/17/17 18:08 10/17/17 20:00 Temperature 98.2 F Pulse Rate 72 62 Respiratory Rate 16 18 15 Blood Pressure 112/68 Pulse Oximetry 92 L 10/17/17 22:20 10/18/17 00:00 10/18/17 04:00 Temperature 97.7 F 97.5 F L Pulse Rate 71 58 L 53 L Respiratory Rate 22 15 14 Blood Pressure 125/65 164/85 H Pulse Oximetry 97 92 L 93 L 10/18/17 04:42 10/18/17 08:00 10/18/17 09:15 Temperature 98.0 F Pulse Rate 62 83 54 L Respiratory Rate 16 15 18 Blood Pressure 168/81 H Pulse Oximetry 93 L 10/18/17 12:00 Temperature 98.2 F Pulse Rate 95 H Respiratory Rate 18 Blood Pressure 144/82 H Pulse Oximetry 94 L Intake & Output 10/17/17 10/18/17 10/18/17 18:59 06:59 18:59 Intake Total 1999 / 1999 1480 / 1480 1000 / 1000 Output Total 1450 / 1450 2150 / 2150 Balance 550 / 550 -670 / -670 1000 / 1000 Weight 58.3 kg Intake: IV 1999 / 1999 1000 / 1000 1000 / 1000 NS + KCl 20 mEq Inj 1,000 ML @ 2000 / 1999 1000 / 1000 1000 / 1000 100 mls/hr IV.CONT .Q10H DREW Rx #:[id number] Oral 480 / 480 Output: Urine Amount (Catheter) 1450 / 1450 2150 / 2150 Indwelling Urethral Catheter 1450 / 1450 2150 / 2150 Result Diagrams: 10/17/17 08:30 10/17/17 08:30 Objective Remarks: - Constitutional Anxious. Aphasic, right hemiplegia - Routine HEENT Exam Head: normocephalic, atraumatic, left craniectomy incision CDI, willy intact Eye: PERRL ENT: Right facial droop present - Routine Neck Exam Supple. - Routine Respiratory Exam Clear breath sounds bilaterally. No accessory muscle use, rhonchi, wheezes - Routine Cardiovascular Exam RRR, S1, S2. No JVD. - Routine Abdominal Exam Soft, normoactive bowel sounds. No tenderness, no guarding. - Routine Extremities Exam s/p right hip hemiarthroplasty. - Routine Skin Exam Right hip incision dressing intact - Routine Neurological Exam Alert, awake, right-sided facial droop. Expressive aphasia +. 0/5 power right upper and lower extremity, sensation intact right side Assessment and Plan - Assessment and Plan Plan: A/P New onset right hemiplegia and aphasia Brain mass -CT of the head stat today shows severe vasogenic edema surrounding the left parietal mass, bilateral frontal pneumocephaly -Discussed with neurosurgery, continue Decadron for vasogenic edema. -Neurosurgery at this time does not recommend 100% nonrebreather, or mannitol -Follow-up on biopsy. Oncology following Dr. Seay -Neurosurgery Dr. Bliss now covered by Dr. 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 CT shows significant vasogenic edema and minimal subarachnoid hemorrhage. Continue current treatment monitor closely for neuro deterioration. Speech appears to have improved over the last 24 hours.
--- NOTE | 2017-10-18 18:46 | P.PNPL ---
Subjective Interval history: 72 YOWM with Severe COPD, Left parietal mass Had Rt hip hemiarthroplasty Breathing better Anxious had parietal lobe bx Developed flacidity of rt ext Sluured speech Physical Exam Vital signs: Vital Signs 10/17/17 20:00 10/17/17 22:20 10/18/17 00:00 Temperature 98.2 F 97.7 F Pulse Rate 62 71 58 L Respiratory Rate 15 22 15 Blood Pressure 112/68 125/65 Pulse Oximetry 92 L 97 92 L 10/18/17 04:00 10/18/17 04:42 10/18/17 08:00 Temperature 97.5 F L 98.0 F Pulse Rate 53 L 62 83 Respiratory Rate 14 16 15 Blood Pressure 164/85 H 168/81 H Pulse Oximetry 93 L 93 L 10/18/17 09:15 10/18/17 12:00 10/18/17 16:00 Temperature 98.2 F 97.5 F L Pulse Rate 54 L 95 H 86 Respiratory Rate 18 18 22 Blood Pressure 144/82 H 138/82 Pulse Oximetry 94 L 93 L Intake & Output 10/17/17 10/18/17 10/18/17 18:59 06:59 18:59 Intake Total 1999 1480 / 1480 1660 / 1660 Output Total 1450 / 1450 2150 / 2150 1900 / 1900 Balance 550 / 550 -670 / -670 -240 / -240 Weight 58.3 kg Intake: IV 1999 1000 / 1000 1000 / 1000 NS + KCl 20 mEq Inj 1,000 ML @ 1999 / 1999 1000 / 1000 1000 / 1000 100 mls/hr IV.CONT .Q10H DREW Rx #:[id number] Oral 480 / 480 660 / 660 Output: Urine Amount (Catheter) 1450 / 1450 2150 / 2150 1900 / 1900 Indwelling Urethral Catheter 1450 / 1450 2150 / 2150 1900 / 1900 Other: # Bowel Movements 0 GENERAL: Elderly WM,NAD SKIN: Warm and dry. HEAD: Normocephalic. EYES: No scleral icterus. No injection or drainage. NECK: Supple, trachea midline. No JVD or lymphadenopathy. CARDIOVASCULAR: Regular rate and rhythm without murmurs, gallops, or rubs. RESPIRATORY: Breath sounds equal bilaterally. No accessory muscle use. GASTROINTESTINAL: Abdomen soft, non-tender, nondistended. MUSCULOSKELETAL: No cyanosis, or edema. Flacid rt side BACK: Nontender without obvious deformity. No CVA tenderness. - Urinary Catheter Management Indwelling Urethral Catheter Cath placed during this visit: yes Reason for continuing: Hourly intake/output Insertion date: 10/15/17 Insertion time: 14:00 Assessment and Plan - Plan IMPRESSION: Severe COPD Left parietal mass Small Lung nodule Spleeinc nodule Nicotine use S/P Rt hip hemiarthroplasty S/P Brain bx Flacid rt side PLAN: Aerosol nebs Supplement 02 Smoking cessation Neurosurgery, oncology following. Check bx results Stable from Pulm standpoint Available prn over weekend.
[2017-10-18] MEDS: levETIRAcetam 1000mg/100mL Inj 100 ML IV.SIG SCH (19:07)
--- NOTE | 2017-10-18 20:36 | CT ---
EXAM DATE: 10/18/2017 8:21 PM EDT AGE/SEX: 72 years / Male INDICATIONS: Altered mental status. CLINICAL DATA: This is the patient's initial encounter. Patient reports that signs and symptoms have been present for 1 day and indicates a pain score of 4/10. MEDICAL/SURGICAL HISTORY: Multiple sclerosis. Brain mass. Tonsillectomy. RADIATION DOSE: 56.35 CTDI (mGy) COMPARISON: [facility] [place], CT HEAD W/O CONTRAST, 10/14/2017. . TECHNIQUE: CT of the head without contrast. Using automated exposure control and adjustment of the mA and/or kV according to patient size, radiation dose was kept as low as reasonably achievable to ob tain optimal diagnostic quality images. DICOM format image data is available electronically for revi ew and comparison. FINDINGS: 1.9 x 3.6 cm focus of parenchymal hemorrhage in the left parietal lobe is nonsignificantly changed. T here is a surrounding area of edema and/or infarct. Stambaugh hole changes are again noted. There is pneum ocephaly slightly decreased. No new bleed. No mass effect or midline shift. Chronic white matter changes are again noted. CONCLUSION: 1. Surgical changes and subcutaneous parenchymal hemorrhage of the left parietal lobe is not signifi cantly changed. Surrounding cerebral edema persists. No midline shift. 2. No new bleed or other acute abnormality. . Electronically signed by: Quirino Carrillo MD 10/18/2017 8:35 PM EDT
[2017-10-19] MEDS: levETIRAcetam 1000mg/100mL Inj 100 ML IV.SIG SCH ×3 (05:19→18:32)
[2017-10-19] MEDS: Acetaminophen 325 MG Tablet PO PRN ×2 (05:20→11:26)
[2017-10-19] MEDS: Calcium/Vitamin D 250/125 MG Tablet PO SCH ×3 (09:41→18:33)
[2017-10-19] MEDS: Senna/Docusate Sodium 8.6/50 MG Tablet PO SCH ×2 (09:42→20:37)
[2017-10-19] MEDS: Famotidine PF Inj 20 MG/2 ML Vial IV.PUSH SCH ×2 (09:42→20:37)
--- NOTE | 2017-10-19 09:51 | P.PNNS ---
Subjective Interval history: Seizure event yesterday evening. Recovered to baseline neurologic status. Physical Exam Vital signs: Vital Signs 10/18/17 12:00 10/18/17 16:00 10/18/17 20:00 Temperature 98.2 F 97.5 F L 97.4 F L Pulse Rate 95 H 86 53 L Respiratory Rate 18 22 22 Blood Pressure 144/82 H 138/82 138/82 Pulse Oximetry 94 L 93 L 96 10/18/17 22:00 10/19/17 00:00 10/19/17 02:00 Temperature 97.5 F L Pulse Rate 50 L 47 L 52 L Respiratory Rate 14 Blood Pressure 133/78 Pulse Oximetry 96 10/19/17 04:00 10/19/17 06:00 10/19/17 07:15 Temperature 97.8 F Pulse Rate 51 L 56 L Respiratory Rate 17 14 Blood Pressure 151/85 H Pulse Oximetry 94 L 10/19/17 08:03 Temperature Pulse Rate Respiratory Rate 16 Blood Pressure Pulse Oximetry Intake & Output 10/18/17 10/19/17 10/19/17 18:59 06:59 18:59 Intake Total 1660 / 1660 1510 / 1510 Output Total 1900 / 1900 1400 / 1400 Balance -240 / -240 110 / 110 Weight 56.1 kg Intake: IV 1000 / 1000 1150 / 1150 NS + KCl 20 mEq Inj 1,000 ML @ 1000 / 1000 950 / 950 100 mls/hr IV.CONT .Q10H DREW Rx #:[id number] Keppra 1000 mg/100 mL Premix 200 / 200 100 ML @ 400 mls/hr IV.SIG Q12H DREW Rx#:[id number] Oral 660 / 660 360 / 360 Output: Stool 0 / 0 Urine Amount (Catheter) 1900 / 1900 1400 / 1400 Indwelling Urethral Catheter 1900 / 1900 1400 / 1400 Other: # Bowel Movements 0 Narrative: Opens eyes spontaneously PERRL EOMI Moderate expressive aphasia Dense right hemiplegia Right facial droop Follows commands left upper and left lower extremity with full strength Sensation intact throughout all extremities Incision: clean, dry, intact - Urinary Catheter Management Indwelling Urethral Catheter Cath placed during this visit: yes Reason for continuing: Hourly intake/output Insertion date: 10/15/17 Insertion time: 14:00 Assessment and Plan - Assessment (1) Brain mass Code(s): G93.9 - Disorder of brain, unspecified Status: Acute - Plan Impression: Mr. Delacruz is a 72 y/o male with a history of multiple sclerosis who underwent a left frontal craniotomy for biopsy/resection of a left frontal enhancing mass by Dr. Bliss on 10/16/17. Operative report indicated a gross total resection of the lesion. Pathology remains pending. Post-operatively, Mr. 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 Post-operative CT demonstrates small amount of blood product in the operative bed and persistent vasogenic edema. He had a seizure event the evening of 10/19/17. His Keppra has been increased to [address] head on 10/18/17 following seizure demonstrates evolving blood products in the operative bed. Plan: Continue with speech therapy and rehab. Advance diet per speech therapy recommendations. Monitor path results, remains pending. Oncology consultation when pathology has resulted. Given significant amount of vasogenic edema, would recommend a slow dexamethasone taper (i.e. over 3 weeks). Keppra 1000 mg BID for seizure prophylaxis.
--- NOTE | 2017-10-19 12:24 | P.PNCC ---
Subjective Subjective Remarks/Hospital Course: 72-year-old very pleasant gentleman presented to [facility] via EMS for an evaluation of a fall. The patient states that he was walking into the library when he started to become uncoordinated, states falling onto his right hip. The patient reports now having a persistent right hib pain. He denies any head trauma or loss of consciousness. The patient states that about the 1 months ago he has been in the emergency department at [facility] due to a facial droop but he left AMA at that time. He was having an MRI completed at the [facility] on October 10 that shows 2 cm peripheral enhancing mass within the left parietal lobe with a moderate amount of surrounding edema highly suspicious for metastatic disease. There is no history of primary malignancy which could have similar appearance although is considered less likely. The CT brain at the [facility] shows heterogenous hyperdense focal hemorrhagic mass at the right frontal lobe 2.4 cm in size with reactive vasogenic edema. The patient has also x-ray of the hip and pelvis that shows acute minimally displaced fracture at the right proximal femur likely intertrochanteric in location. The patient has been transferred to [facility] for higher level of care and neurosurgical/ orthopedic evaluation. SUBJ: 10/15: Patient seen after right hip hemiarthroplasty. Breathing comfortably pain adequately controlled. Anxious about the brain tumor. Oncology Dr. Seay concerned about primary brain tumor. 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 Continues to have right facial droop 10/17 Critical care reconsult note Critical Care reconsulted for new onset right hemiparesis, aphasia. Patient underwent Left parietal craniectomy, resection neoplasm yesterday 10/16/[address] Bliss for suspected primary brain tumor. CT head today showed prominent pneumocephaly anteriorly in the frontal regions and large vasogenic edema surrounding the left frontoparietal mass. Minimal subarachnoid hemorrhage. Patient is also POD 2 s/p right hip hemiarthroplasty 10/18: Patient is alert and awake. Mild expressive aphasia persists. Enunciation improved. Right arm flaccid but some sensory function is returned. Protects airway well swallow eval successful but with some drooling. Update 1805 hours: Patient found unresponsive but awakened after 10 minutes after stimulation. Right side and face remains flaccid. Speech is more garbled. Suspect he had a seizure. Will start AED and get CT head. 10/19: No more seizure activity. Neurologic exam is back to baseline from yesterday morning. Recommendation from neurosurgical service about long Decadron taper appreciated and will be prescribed. Objective Vital Signs / I&O: Vital Signs 10/18/17 16:00 10/18/17 20:00 10/18/17 22:00 Temperature 97.5 F L 97.4 F L Pulse Rate 86 53 L 50 L Respiratory Rate 22 22 Blood Pressure 138/82 138/82 Pulse Oximetry 93 L 96 10/19/17 00:00 10/19/17 02:00 10/19/17 04:00 Temperature 97.5 F L 97.8 F Pulse Rate 47 L 52 L 51 L Respiratory Rate 14 17 Blood Pressure 133/78 151/85 H Pulse Oximetry 96 94 L 10/19/17 06:00 10/19/17 07:15 10/19/17 08:03 Temperature Pulse Rate 56 L Respiratory Rate 14 16 Blood Pressure Pulse Oximetry 10/19/17 10:23 10/19/17 10:24 Temperature Pulse Rate 56 L Respiratory Rate 12 Blood Pressure Pulse Oximetry 94 L Intake & Output 10/18/17 10/19/17 10/19/17 18:59 06:59 18:59 Intake Total 1660 / 1660 1510 / 1510 Output Total 1900 / 1900 1400 / 1400 Balance -240 / -240 110 / 110 Weight 56.1 kg Intake: IV 1000 / 1000 1150 / 1150 NS + KCl 20 mEq Inj 1,000 ML @ 1000 / 1000 950 / 950 100 mls/hr IV.CONT .Q10H DREW Rx #:[id number] Keppra 1000 mg/100 mL Premix 200 / 200 100 ML @ 400 mls/hr IV.SIG Q12H DREW Rx#:[id number] Oral 660 / 660 360 / 360 Output: Stool 0 / 0 Urine Amount (Catheter) 1900 / 1900 1400 / 1400 Indwelling Urethral Catheter 1900 / 1900 1400 / 1400 Other: # Bowel Movements 0 Result Diagrams: 10/17/17 08:30 10/17/17 08:30 Objective Remarks: - Constitutional Anxious. Aphasic, right hemiplegia - Routine HEENT Exam Head: normocephalic, atraumatic, left craniectomy incision CDI, willy intact Eye: PERRL ENT: Right facial droop present - Routine Neck Exam Supple. - Routine Respiratory Exam Clear breath sounds bilaterally. No accessory muscle use, rhonchi, wheezes - Routine Cardiovascular Exam RRR, S1, S2. No JVD. - Routine Abdominal Exam Soft, normoactive bowel sounds. No tenderness, no guarding. - Routine Extremities Exam s/p right hip hemiarthroplasty. - Routine Skin Exam Right hip incision dressing intact - Routine Neurological Exam Alert, awake, right-sided facial droop persists. Expressive aphasia +. 0/5 power right upper and lower extremity, sensation intact right side. Left side normal strength. Assessment and Plan - Assessment and Plan Plan: A/P New onset right hemiplegia and aphasia Brain mass -CT of the head stat today shows severe vasogenic edema surrounding the left parietal mass, bilateral frontal pneumocephaly -Discussed with neurosurgery, continue Decadron for vasogenic edema. -Neurosurgery at this time does not recommend 100% nonrebreather, or mannitol -Follow-up on biopsy. Oncology following Dr. Seay -Neurosurgery Dr. Bliss now covered by Dr. 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 Seizure -Increase Keppra to 1000 mg twice daily. -Check mag and phosphorus. Hip fracture -Orthopedic following -Patient is status post right hip hemiarthroplasty today -PT/OT COPD -No exacerbation -DuoNeb's as needed GI: -Diet per speech recommendation DVT GI prophylaxis -Teds SCDs -Hold Pharmacological DVT prophylaxis due to minimal subarachnoid hemorrhage -Pepcid Overall impression: Status post brain neoplasm resection with new aphasia and right hemiplegia. CT shows significant vasogenic edema and minimal subarachnoid hemorrhage. Continue current treatment monitor closely for recurrent seizures following increase in Keppra dose. We will extend Decadron taper over 3 weeks from resection following discharge.
[2017-10-19] MEDS: ALPRAZolam 0.25 MG Tablet PO PRN (14:42)
--- NOTE | 2017-10-19 16:11 | P.DIET ---
Nutritional Evaluation Type of nutrition evaluation: follow-up Nutrition screening: Weight Loss > 10 lbs (Steady loss of wt) Subjective Subjective Comments: From 10/14: C/o steady loss of wt possibly r/t the fact that he is unable to stand for long durations to cook, per pt. Objective - Diagnosis Brain Tumor - Objective % IBW: 72 (MOO=[id number]#) Body Weight Used for Calculations: IBW (78.2kg) Energy Needs - Lower Range (kCal/kg): 25 Energy Needs - Upper Range (kCal/kg): 30 Lower Limit kCal/kg (kCals): 1,955 Upper Limit kCal/kg (kCals): 2,346 Lower Limit Protein Factor (Grams per Kg): 1.2 Upper Limit Protein Factor (Grams per Kg): 1.5 Lower Protein Needs (Protein): 94 Upper Protein Needs (Protein): 117 Dietitian Reviewed in Medical Record: Current diet, Curent medications, Intake & Output, Labs, Medical history Diet Order: Regular Feeding - Current PO Supplement Current Supplement: Ensure Enlive Current Supplement Flavor: Vanilla Current Frequency of Supplement: Three times a day Current kCals Provided by Supplement: 350 (per 8 oz serving) Current Protein Provided by Supplement: 20 (per 8 oz serving) Assessment Assessment: Pt remains in [facility] s/p R hip hemiarthroplasty (10/15) and L parietal craniectomy for resection of neoplasm (10/16) and has new aphasia and R hemiplegia. Pt is on a pureed diet (per ST recs) and has poor po intake with a BMI of 17.3. Will continue Ensure Enlive tid and monitor po intake and medical course closely. Recommendations: 1. Recommend daily multivitamin/mineral. 2. Enlive TID. 3. Diet per ST Dietitian to Monitor: Lab values, Supplement acceptance, Intake & Output, Diet tolerance, Weight change, PO Intake, Medical course
[2017-10-20 06:06] LABS: Anion Gap 5 meq/L (5-15); Blood Urea Nitrogen 26 mg/dL (7-18); Calcium 8.4 mg/dL (8.5-10.1); Carbon Dioxide 30.6 meq/L (21.0-32.0); Chloride 100 meq/L (98-107); Glomerular Filtration Rate Greater Than 89 mL/min (>89); Glucose,Random 101 mg/dL (74-106); Magnesium 2.3 mg/dL (1.5-2.5); Phosphorus 2.9 mg/dL (2.5-4.9); Potassium 5.2 meq/L (3.5-5.1); Sodium 136 meq/L (136-145)
[2017-10-20] MEDS: levETIRAcetam 1000mg/100mL Inj 100 ML IV.SIG SCH ×2 (06:21→18:23)
[2017-10-20] MEDS: Calcium/Vitamin D 250/125 MG Tablet PO SCH ×3 (09:43→17:49)
[2017-10-20] MEDS: Famotidine PF Inj 20 MG/2 ML Vial IV.PUSH SCH ×2 (09:43→20:47)
[2017-10-20] MEDS: Senna/Docusate Sodium 8.6/50 MG Tablet PO SCH ×2 (09:43→20:49)
--- NOTE | 2017-10-20 11:59 | P.PNCC ---
Subjective Subjective Remarks/Hospital Course: 72-year-old very pleasant gentleman presented to [facility] via EMS for an evaluation of a fall. The patient states that he was walking into the library when he started to become uncoordinated, states falling onto his right hip. The patient reports now having a persistent right hib pain. He denies any head trauma or loss of consciousness. The patient states that about the 1 months ago he has been in the emergency department at [facility] due to a facial droop but he left AMA at that time. He was having an MRI completed at the [facility] on October 10 that shows 2 cm peripheral enhancing mass within the left parietal lobe with a moderate amount of surrounding edema highly suspicious for metastatic disease. There is no history of primary malignancy which could have similar appearance although is considered less likely. The CT brain at the [facility] shows heterogenous hyperdense focal hemorrhagic mass at the right frontal lobe 2.4 cm in size with reactive vasogenic edema. The patient has also x-ray of the hip and pelvis that shows acute minimally displaced fracture at the right proximal femur likely intertrochanteric in location. The patient has been transferred to [facility] for higher level of care and neurosurgical/ orthopedic evaluation. SUBJ: 10/15: Patient seen after right hip hemiarthroplasty. Breathing comfortably pain adequately controlled. Anxious about the brain tumor. Oncology Dr. Seay concerned about primary brain tumor. 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 Continues to have right facial droop 10/17 Critical care reconsult note Critical Care reconsulted for new onset right hemiparesis, aphasia. Patient underwent Left parietal craniectomy, resection neoplasm yesterday 10/16/[address] Bliss for suspected primary brain tumor. CT head today showed prominent pneumocephaly anteriorly in the frontal regions and large vasogenic edema surrounding the left frontoparietal mass. Minimal subarachnoid hemorrhage. Patient is also POD 2 s/p right hip hemiarthroplasty 10/18: Patient is alert and awake. Mild expressive aphasia persists. Enunciation improved. Right arm flaccid but some sensory function is returned. Protects airway well swallow eval successful but with some drooling. Update 1805 hours: Patient found unresponsive but awakened after 10 minutes after stimulation. Right side and face remains flaccid. Speech is more garbled. Suspect he had a seizure. Will start AED and get CT head. 10/19: No more seizure activity. Neurologic exam is back to baseline from yesterday morning. Recommendation from neurosurgical service about long Decadron taper appreciated and will be prescribed. 10/20: Neurological exam unchanged today. Awaiting pathology report from resected left hemispheric nodule. Patient has extensive emphysema and bilateral hilar adenopathy following an extensive smoking history. The remainder of the primary and metastatic workup reveals only a large mass within the spleen. I still suspect a brain primary but a lung primary is a close second possibility. Objective Vital Signs / I&O: Vital Signs 10/19/17 12:00 10/19/17 13:00 10/19/17 14:00 Temperature 97.8 F Pulse Rate 72 81 97 H Respiratory Rate 17 27 H 23 Blood Pressure 128/77 136/83 128/83 Pulse Oximetry 95 95 92 L 10/19/17 15:00 10/19/17 17:00 10/19/17 18:00 Temperature Pulse Rate 85 75 88 Respiratory Rate 19 10 L 37 H Blood Pressure 134/72 142/91 H 147/81 H Pulse Oximetry 92 L 94 L 94 L 10/19/17 20:00 10/20/17 00:00 10/20/17 04:00 Temperature 97.7 F 98.2 F 97.7 F Pulse Rate 72 58 L 68 Respiratory Rate 28 H 21 16 Blood Pressure 137/86 165/94 H 154/90 H Pulse Oximetry 93 L 93 L 95 10/20/17 04:19 10/20/17 08:00 10/20/17 11:06 Temperature 97.5 F L Pulse Rate 49 L 52 L 68 Respiratory Rate 16 20 20 Blood Pressure 160/83 H Pulse Oximetry 95 Intake & Output 10/19/17 10/20/17 10/20/17 18:59 06:59 18:59 Intake Total 1820 / 1820 2480 / 2480 100 / 100 Output Total 1600 / 1600 1375 / 1375 Balance 220 / 220 1105 / 1105 100 / 100 Weight 57.8 kg Intake: IV 1100 / 1100 1999 / 1999 100 / 100 NS + KCl 20 mEq Inj 1,000 ML @ 1000 / 1000 1999 / 1999 100 mls/hr IV.CONT .Q10H [facility] Rx #:[id number] Keppra 1000 mg/100 mL Premix 100 / 100 100 / 100 100 ML @ 400 mls/hr IV.SIG Q12H [facility] Rx#:[id number] Oral 720 / 720 480 / 480 Output: Urine 100 / 100 1275 / 1275 Stool 0 / 0 Estimated Blood Loss 100 / 100 Urine Amount (Catheter) 1500 / 1500 Indwelling Urethral Catheter 1500 / 1500 Other: Date of Last Bowel Movement 10/13/17 10/13/17 10/13/17 # Bowel Movements 0 Result Diagrams: 10/17/17 08:30 10/20/17 04:53 Objective Remarks: - Constitutional Anxious. Aphasic, right hemiplegia - Routine HEENT Exam Head: normocephalic, atraumatic, left craniectomy incision CDI, willy intact Eye: PERRL ENT: Right facial droop present - Routine Neck Exam Supple. - Routine Respiratory Exam Clear breath sounds bilaterally. No accessory muscle use, rhonchi, wheezes - Routine Cardiovascular Exam RRR, S1, S2. No JVD. - Routine Abdominal Exam Soft, normoactive bowel sounds. No tenderness, no guarding. - Routine Extremities Exam s/p right hip hemiarthroplasty. - Routine Skin Exam Right hip incision dressing intact - Routine Neurological Exam Alert, awake, right-sided facial droop persists. Expressive aphasia +. 0/5 power right upper and lower extremity, sensation intact right side. Left side normal strength. Assessment and Plan - Assessment and Plan Plan: A/P New onset right hemiplegia and aphasia Brain mass -CT of the head stat today shows severe vasogenic edema surrounding the left parietal mass, bilateral frontal pneumocephaly -Discussed with neurosurgery, continue Decadron for vasogenic edema. -Neurosurgery at this time does not recommend 100% nonrebreather, or mannitol -Follow-up on biopsy. Oncology following Dr. Seay -Neurosurgery Dr. Bliss now covered by Dr. 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 Seizure -Increase Keppra to 1000 mg twice daily. -Check mag and phosphorus. Hip fracture -Orthopedic following -Patient is status post right hip hemiarthroplasty today -PT/OT COPD -No exacerbation -DuoNeb's as needed GI: -Diet per speech recommendation DVT GI prophylaxis -Teds SCDs -Hold Pharmacological DVT prophylaxis due to minimal subarachnoid hemorrhage -Pepcid Overall impression: Status post brain neoplasm resection with new aphasia and right hemiplegia. CT shows significant vasogenic edema and minimal subarachnoid hemorrhage. Continue current treatment monitor closely for recurrent seizures following increase in Keppra dose. We will extend Decadron taper over 3 weeks from resection following discharge. Residual unresolved problems include a large splenic mass and a 5 mm right lung nodule.
--- NOTE | 2017-10-20 14:32 | P.PNNS ---
Subjective Interval history: Improvement in right lower extremity strength this morning. Physical Exam Vital signs: Vital Signs 10/19/17 15:00 10/19/17 17:00 10/19/17 18:00 Temperature Pulse Rate 85 75 88 Respiratory Rate 19 10 L 37 H Blood Pressure 134/72 142/91 H 147/81 H Pulse Oximetry 92 L 94 L 94 L 10/19/17 20:00 10/20/17 00:00 10/20/17 04:00 Temperature 97.7 F 98.2 F 97.7 F Pulse Rate 72 58 L 68 Respiratory Rate 28 H 21 16 Blood Pressure 137/86 165/94 H 154/90 H Pulse Oximetry 93 L 93 L 95 10/20/17 04:19 10/20/17 08:00 10/20/17 11:06 Temperature 97.5 F L Pulse Rate 49 L 52 L 68 Respiratory Rate 16 20 20 Blood Pressure 160/83 H Pulse Oximetry 95 Intake & Output 10/19/17 10/20/17 10/20/17 18:59 06:59 18:59 Intake Total 1820 / 1820 2480 / 2480 100 / 100 Output Total 1600 / 1600 1375 / 1375 Balance 220 / 220 1105 / 1105 100 / 100 Weight 57.8 kg Intake: IV 1100 / 1100 2000 / 2000 100 / 100 NS + KCl 20 mEq Inj 1,000 ML @ 1000 / 1000 2000 / 2000 100 mls/hr IV.CONT .Q10H [facility] Rx #:[id number] Keppra 1000 mg/100 mL Premix 100 / 100 100 / 100 100 ML @ 400 mls/hr IV.SIG Q12H [facility] Rx#:[id number] Oral 720 / 720 480 / 480 Output: Urine 100 / 100 1275 / 1275 Stool 0 / 0 Estimated Blood Loss 100 / 100 Urine Amount (Catheter) 1500 / 1500 Indwelling Urethral Catheter 1500 / 1500 Other: Date of Last Bowel Movement 10/13/17 10/13/17 10/13/17 # Bowel Movements 0 Narrative: Opens eyes spontaneously PERRL EOMI Moderate expressive aphasia, improving Right facial droop Dense right upper extremity plegia Distal right lower extremity 2/5, proximal 1/5 Follows commands left upper and left lower extremity with full strength Sensation intact throughout all extremities Incision: clean, dry, intact - Urinary Catheter Management Indwelling Urethral Catheter Cath placed during this visit: yes, but has since been removed by the nurse Reason for continuing: Decision to DC catheter Insertion date: 10/15/17 Insertion time: 14:00 Removal date: 10/19/17 Removal time: 16:00 Assessment and Plan - Assessment (1) Brain mass Code(s): G93.9 - Disorder of brain, unspecified Status: Acute - Plan Impression: Mr. Delacruz is a 72 y/o male with a history of multiple sclerosis who underwent a left frontal craniotomy for biopsy/resection of a left frontal enhancing mass by Dr. Bliss on 10/16/17. Operative report indicated a gross total resection of the lesion. Pathology remains pending. Post-operatively, Mr. 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 Post-operative CT demonstrates small amount of blood product in the operative bed and persistent vasogenic edema. He had a seizure event the evening of 10/19/17. His Keppra has been increased to [address] head on 10/18/17 following seizure demonstrates evolving blood products in the operative bed. Plan: Right lower extremity strength significantly improved this morning compared to yesterday. Consider initiation of anti-depressant for depressed affect. Continue with speech therapy and rehab. Monitor path results, remains pending. Oncology consultation when pathology has resulted. Given significant amount of vasogenic edema, would recommend a slow dexamethasone taper (i.e. over 3 weeks). Keppra 1000 mg BID for seizure prophylaxis.
[2017-10-20] MEDS: Acetaminophen 325 MG Tablet PO PRN (20:48)
[2017-10-20] MEDS: ALPRAZolam 0.25 MG Tablet PO PRN (20:48)
[2017-10-21 06:12] LABS: Anion Gap 9 meq/L (5-15); Blood Urea Nitrogen 27 mg/dL (7-18); Calcium 8.3 mg/dL (8.5-10.1); Carbon Dioxide 24.8 meq/L (21.0-32.0); Chloride 102 meq/L (98-107); Glomerular Filtration Rate Greater Than 89 mL/min (>89); Glucose,Random 105 mg/dL (74-106); Magnesium 2.1 mg/dL (1.5-2.5); Potassium 4.8 meq/L (3.5-5.1); Sodium 136 meq/L (136-145)
[2017-10-21 06:14] LABS: Phosphorus 3.2 mg/dL (2.5-4.9)
--- NOTE | 2017-10-21 07:37 | MG ---
cc: Arsen Moran MD DATE: 10/20/2017 [id number] INDICATIONS: He had a fall, right facial droop, right-sided weakness, brain tumor. Radames Tavera Keppra. FINDINGS: Slight attenuation of the right hemisphere compared to the left is noted. No epileptiform or seizure activity is seen. Photic stimulation is performed without significant posterior driving. Small-phase reversing sharp coming out of the normal background of 11 Hz. Generalized rhythm is seen over the left central head region at EPOC 117. IMPRESSION: Sharply contoured wave comes out of the left central head region, EPOC 117. There is a slight attenuation on the right hemisphere compared to the left. No prolonged seizure activity is seen. This may put him at a slight increased risk for seizures, however. Some mild left temporal theta slowing was also seen occasionally. Clinical correlation is needed. MD DORI Barraza/leelee , 07:53 AM , 07:59 AM
--- NOTE | 2017-10-21 08:43 | P.PNCC ---
Subjective Subjective Remarks/Hospital Course: 72-year-old very pleasant gentleman presented to [facility] via EMS for an evaluation of a fall. The patient states that he was walking into the library when he started to become uncoordinated, states falling onto his right hip. The patient reports now having a persistent right hib pain. He denies any head trauma or loss of consciousness. The patient states that about the 1 months ago he has been in the emergency department at [facility] due to a facial droop but he left AMA at that time. He was having an MRI completed at the [facility] on October 10 that shows 2 cm peripheral enhancing mass within the left parietal lobe with a moderate amount of surrounding edema highly suspicious for metastatic disease. There is no history of primary malignancy which could have similar appearance although is considered less likely. The CT brain at the [facility] shows heterogenous hyperdense focal hemorrhagic mass at the right frontal lobe 2.4 cm in size with reactive vasogenic edema. The patient has also x-ray of the hip and pelvis that shows acute minimally displaced fracture at the right proximal femur likely intertrochanteric in location. The patient has been transferred to [facility] [place] for higher level of care and neurosurgical/ orthopedic evaluation. SUBJ: 10/15: Patient seen after right hip hemiarthroplasty. Breathing comfortably pain adequately controlled. Anxious about the brain tumor. Oncology Dr. Seay concerned about primary brain tumor. 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 Continues to have right facial droop 10/17 Critical care reconsult note Critical Care reconsulted for new onset right hemiparesis, aphasia. Patient underwent Left parietal craniectomy, resection neoplasm yesterday 10/16/[address] Bliss for suspected primary brain tumor. CT head today showed prominent pneumocephaly anteriorly in the frontal regions and large vasogenic edema surrounding the left frontoparietal mass. Minimal subarachnoid hemorrhage. Patient is also POD 2 s/p right hip hemiarthroplasty 10/18: Patient is alert and awake. Mild expressive aphasia persists. Enunciation improved. Right arm flaccid but some sensory function is returned. Protects airway well swallow eval successful but with some drooling. Update 1805 hours: Patient found unresponsive but awakened after 10 minutes after stimulation. Right side and face remains flaccid. Speech is more garbled. Suspect he had a seizure. Will start AED and get CT head. 10/19: No more seizure activity. Neurologic exam is back to baseline from yesterday morning. Recommendation from neurosurgical service about long Decadron taper appreciated and will be prescribed. 10/20: Neurological exam unchanged today. Awaiting pathology report from resected left hemispheric nodule. Patient has extensive emphysema and bilateral hilar adenopathy following an extensive smoking history. The remainder of the primary and metastatic workup reveals only a large mass within the spleen. I still suspect a brain primary but a lung primary is a close second possibility. 10/21: Improving aphasia. Handle secretions and protects airway well. Pathology report should be out today. Blood pressure control acceptable. Working with PT and OT. Objective Vital Signs / I&O: Vital Signs 10/20/17 11:06 10/20/17 12:00 10/20/17 16:00 Temperature 98.3 F 98.3 F Pulse Rate 68 66 69 Respiratory Rate 20 17 23 Blood Pressure 165/82 H 179/86 H Pulse Oximetry 95 95 10/20/17 16:58 10/20/17 20:00 10/20/17 21:58 Temperature 98.7 F Pulse Rate 64 58 L 63 Respiratory Rate 20 20 16 Blood Pressure 141/82 H Pulse Oximetry 97 10/21/17 00:00 10/21/17 01:24 10/21/17 04:00 Temperature 98.7 F 98.7 F Pulse Rate 69 66 Respiratory Rate 17 20 Blood Pressure 148/79 H 147/80 H Pulse Oximetry 94 L 94 L 10/21/17 08:32 Temperature Pulse Rate 56 L Respiratory Rate 18 Blood Pressure Pulse Oximetry Intake & Output 10/20/17 10/21/17 10/21/17 18:59 06:59 18:59 Intake Total 1920 / 1920 120 / 120 Output Total 1600 / 1600 1000 / 1000 Balance 320 / 320 -880 / -880 Weight 57.9 kg Intake: IV 1200 / 1200 NS + KCl 20 mEq Inj 1,000 ML @ 1000 / 1000 100 mls/hr IV.CONT .Q10H [facility] Rx #:[id number] Keppra 1000 mg/100 mL Premix 200 / 200 100 ML @ 400 mls/hr IV.SIG Q12H [facility] Rx#:[id number] Oral 720 / 720 120 / 120 Output: Urine 1600 / 1600 900 / 900 Stool 0 / 0 0 / 0 Estimated Blood Loss 100 / 100 Other: Date of Last Bowel Movement 10/13/17 10/13/17 # Bowel Movements 0 0 Result Diagrams: 10/17/17 08:30 10/21/17 05:01 Objective Remarks: - Constitutional Anxious. Aphasic, right hemiplegia - Routine HEENT Exam Head: normocephalic, atraumatic, left craniectomy incision CDI, willy intact Eye: PERRL ENT: Right facial droop present - Routine Neck Exam Supple. - Routine Respiratory Exam Clear breath sounds bilaterally. No accessory muscle use, rhonchi, wheezes - Routine Cardiovascular Exam RRR, S1, S2. No JVD. - Routine Abdominal Exam Soft, normoactive bowel sounds. No tenderness, no guarding. - Routine Extremities Exam s/p right hip hemiarthroplasty. - Routine Skin Exam Right hip incision dressing intact - Routine Neurological Exam Alert, awake, right-sided facial droop persists. Expressive aphasia improved. 0 /5 power right upper and lower extremity, sensation intact right side. Left side normal strength. Assessment and Plan - Assessment and Plan Plan: A/P New onset right hemiplegia and aphasia Brain mass -CT of the head stat today shows severe vasogenic edema surrounding the left parietal mass, bilateral frontal pneumocephaly -Discussed with neurosurgery, continue Decadron for vasogenic edema. -Neurosurgery at this time does not recommend 100% nonrebreather, or mannitol -Follow-up on biopsy. Oncology following Dr. Seay -Neurosurgery Dr. Bliss now covered by Dr. 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 Seizure -Increase Keppra to 1000 mg twice daily. -Check mag and phosphorus. Hip fracture -Orthopedic following -Patient is status post right hip hemiarthroplasty today -PT/OT COPD -No exacerbation -DuoNeb's as needed GI: -Diet per speech recommendation DVT GI prophylaxis -Teds SCDs -Hold Pharmacological DVT prophylaxis due to minimal subarachnoid hemorrhage -Pepcid Overall impression: Status post brain mass resection with new aphasia and right hemiplegia. CT shows significant vasogenic edema and minimal subarachnoid hemorrhage. Continue current treatment and monitor closely for recurrent seizures following increase in Keppra dose. No subsequent seizures since increase in Keppra dose. We will extend Decadron taper over 3 weeks from resection following discharge. Residual unresolved problems include a large splenic mass and a 5 mm right lung nodule.
[2017-10-21] MEDS: levETIRAcetam 1000mg/100mL Inj 100 ML IV.SIG SCH ×2 (08:45→18:19)
[2017-10-21] MEDS: Famotidine PF Inj 20 MG/2 ML Vial IV.PUSH SCH ×2 (08:47→22:46)
[2017-10-21] MEDS: Calcium/Vitamin D 250/125 MG Tablet PO SCH ×3 (08:47→17:31)
[2017-10-21] MEDS: Acetaminophen 325 MG Tablet PO PRN (08:47)
[2017-10-21] MEDS: Senna/Docusate Sodium 8.6/50 MG Tablet PO SCH ×2 (08:47→22:46)
--- NOTE | 2017-10-21 17:27 | P.PNNS ---
Subjective Interval history: Path still pending. Right leg improving in strength through the day. Physical Exam Vital signs: Vital Signs 10/20/17 20:00 10/20/17 21:58 10/21/17 00:00 Temperature 98.7 F 98.7 F Pulse Rate 58 L 63 69 Respiratory Rate 20 16 17 Blood Pressure 141/82 H 148/79 H Pulse Oximetry 97 94 L 10/21/17 01:24 10/21/17 04:00 10/21/17 06:16 Temperature 98.7 F Pulse Rate 66 57 L Respiratory Rate 20 18 Blood Pressure 147/80 H 166/98 H Pulse Oximetry 94 L 96 10/21/17 06:30 10/21/17 07:16 10/21/17 08:16 Temperature 97.5 F L Pulse Rate 57 L 58 L 54 L Respiratory Rate 19 15 17 Blood Pressure 150/92 H 174/99 H 172/92 H Pulse Oximetry 96 95 95 10/21/17 08:32 10/21/17 09:00 10/21/17 12:00 Temperature 98.0 F Pulse Rate 56 L 63 88 Respiratory Rate 18 24 22 Blood Pressure 166/91 H 141/84 H Pulse Oximetry 95 94 L 10/21/17 16:00 10/21/17 16:10 Temperature 97.5 F L Pulse Rate 88 80 Respiratory Rate 16 21 Blood Pressure 142/65 H Pulse Oximetry 97 Intake & Output 10/20/17 10/21/17 10/21/17 18:59 06:59 18:59 Intake Total 1920 / 1920 120 / 120 1100 / 1100 Output Total 1600 / 1600 1000 / 1000 Balance 320 / 320 -880 / -880 1100 / 1100 Weight 57.9 kg Intake: IV 1200 / 1200 1100 / 1100 NS + KCl 20 mEq Inj 1,000 ML @ 1000 / 1000 1000 / 1000 100 mls/hr IV.CONT .Q10H [facility] Rx #:[id number] Keppra 1000 mg/100 mL Premix 200 / 200 100 / 100 100 ML @ 400 mls/hr IV.SIG Q12H [facility] Rx#:[id number] Oral 720 / 720 120 / 120 Output: Urine 1600 / 1600 900 / 900 Stool 0 / 0 0 / 0 Estimated Blood Loss 100 / 100 Other: Date of Last Bowel Movement 10/13/17 10/13/17 # Bowel Movements 0 0 Narrative: Opens eyes spontaneously PERRL EOMI Moderate expressive aphasia, improving Right facial droop Dense right upper extremity plegia Distal right lower extremity 2/5, proximal 1/5 Follows commands left upper and left lower extremity with full strength Sensation intact throughout all extremities Incision: clean, dry, intact - Urinary Catheter Management Indwelling Urethral Catheter Cath placed during this visit: yes, but has since been removed by the nurse Reason for continuing: Decision to DC catheter Insertion date: 10/15/17 Insertion time: 14:00 Removal date: 10/19/17 Removal time: 16:00 Assessment and Plan - Assessment (1) Brain mass Code(s): G93.9 - Disorder of brain, unspecified Status: Acute - Plan Impression: Mr. Delacruz is a 72 y/o male with a history of multiple sclerosis who underwent a left frontal craniotomy for biopsy/resection of a left frontal enhancing mass by Dr. Bliss on 10/16/17. Operative report indicated a gross total resection of the lesion. Pathology remains pending. Post-operatively, Mr. 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 Post-operative CT demonstrates small amount of blood product in the operative bed and persistent vasogenic edema. He had a seizure event the evening of 10/19/17. His Keppra has been increased to [address] head on 10/18/17 following seizure demonstrates evolving blood products in the operative bed. Plan: Right lower extremity strength significantly improved further through the day compared to this morning and yesterday. Consider initiation of anti-depressant for depressed affect. Continue with speech therapy and rehab. Monitor path results, remains pending (10/21). Oncology consultation when pathology has resulted. Given significant amount of vasogenic edema, would recommend a slow dexamethasone taper (i.e. over 3 weeks). Keppra 1000 mg BID for seizure prophylaxis.
--- NOTE | 2017-10-21 20:14 | P.PNPL ---
Subjective Interval history: 72 YOWM with Severe COPD, Left parietal mass Had Rt hip hemiarthroplasty Breathing better Anxious Sluured speech Physical Exam Vital signs: Vital Signs 10/20/17 21:58 10/21/17 00:00 10/21/17 01:24 Temperature 98.7 F Pulse Rate 63 69 Respiratory Rate 16 17 20 Blood Pressure 148/79 H Pulse Oximetry 94 L 10/21/17 04:00 10/21/17 06:16 10/21/17 06:30 Temperature 98.7 F Pulse Rate 66 57 L 57 L Respiratory Rate 18 19 Blood Pressure 147/80 H 166/98 H 150/92 H Pulse Oximetry 94 L 96 96 10/21/17 07:16 10/21/17 08:16 10/21/17 08:32 Temperature 97.5 F L Pulse Rate 58 L 54 L 56 L Respiratory Rate 15 17 18 Blood Pressure 174/99 H 172/92 H Pulse Oximetry 95 95 10/21/17 09:00 10/21/17 12:00 10/21/17 16:00 Temperature 98.0 F 97.5 F L Pulse Rate 63 88 88 Respiratory Rate 24 22 16 Blood Pressure 166/91 H 141/84 H 142/65 H Pulse Oximetry 95 94 L 97 10/21/17 16:10 Temperature Pulse Rate 80 Respiratory Rate 21 Blood Pressure Pulse Oximetry Intake & Output 10/21/17 10/21/17 10/22/17 06:59 18:59 06:59 Intake Total 120 / 120 2200 / 2200 Output Total 1000 / 1000 1600 / 1600 Balance -880 / -880 600 / 600 Weight 57.9 kg Intake: IV 2200 / 2200 NS + KCl 20 mEq Inj 1,000 ML @ 2000 / 2000 100 mls/hr IV.CONT .Q10H DREW Rx #:[id number] Keppra 1000 mg/100 mL Premix 200 / 200 100 ML @ 400 mls/hr IV.SIG Q12H DREW Rx#:[id number] Oral 120 / 120 Output: Urine 900 / 900 1600 / 1600 Stool 0 / 0 Estimated Blood Loss 100 / 100 Other: Date of Last Bowel Movement 10/13/17 # Bowel Movements 0 GENERAL: Elderly WM,NAD SKIN: Warm and dry. HEAD: Normocephalic. EYES: No scleral icterus. No injection or drainage. NECK: Supple, trachea midline. No JVD or lymphadenopathy. CARDIOVASCULAR: Regular rate and rhythm without murmurs, gallops, or rubs. RESPIRATORY: Breath sounds equal bilaterally. No accessory muscle use. GASTROINTESTINAL: Abdomen soft, non-tender, nondistended. MUSCULOSKELETAL: No cyanosis, or edema. Weak rt side BACK: Nontender without obvious deformity. No CVA tenderness. - Urinary Catheter Management Indwelling Urethral Catheter Cath placed during this visit: yes, but has since been removed by the nurse Reason for continuing: Decision to DC catheter Insertion date: 10/15/17 Insertion time: 14:00 Removal date: 10/19/17 Removal time: 16:00 Assessment and Plan - Plan IMPRESSION: Severe COPD Left parietal mass Small Lung nodule Spleeinc nodule Nicotine use S/P Rt hip hemiarthroplasty S/P Brain bx Flacid rt side PLAN: Aerosol nebs Supplement 02 Smoking cessation Neurosurgery, oncology following. Check bx results Stable from Pulm standpoint
[2017-10-22] MEDS: levETIRAcetam 1000mg/100mL Inj 100 ML IV.SIG SCH ×2 (06:41→18:04)
[2017-10-22 08:07] LABS: Anion Gap 7 meq/L (5-15); Blood Urea Nitrogen 28 mg/dL (7-18); Calcium 7.8 mg/dL (8.5-10.1); Carbon Dioxide 27.4 meq/L (21.0-32.0); Chloride 102 meq/L (98-107); Glomerular Filtration Rate Greater Than 89 mL/min (>89); Glucose,Random 117 mg/dL (74-106); Potassium 4.6 meq/L (3.5-5.1); Sodium 136 meq/L (136-145)
--- NOTE | 2017-10-22 09:13 | P.PNNS ---
Subjective Interval history: No acute events overnight. Physical Exam Vital signs: Vital Signs 10/21/17 12:00 10/21/17 16:00 10/21/17 16:10 Temperature 98.0 F 97.5 F L Pulse Rate 88 88 80 Respiratory Rate 22 16 21 Blood Pressure 141/84 H 142/65 H Pulse Oximetry 94 L 97 10/21/17 20:45 10/22/17 00:00 10/22/17 04:00 Temperature 97.3 F L 97.3 F L Pulse Rate 91 H 77 58 L Respiratory Rate 16 18 19 Blood Pressure 165/75 H 118/71 Pulse Oximetry 92 L 93 L 96 Intake & Output 10/21/17 10/22/17 10/22/17 18:59 06:59 18:59 Intake Total 2200 / 2200 1221 / 1221 Output Total 1600 / 1600 350 / 350 Balance 600 / 600 871 / 871 Weight 60.6 kg Intake: IV 2200 / 2200 NS + KCl 20 mEq Inj 1,000 ML @ 2000 / 2000 100 mls/hr IV.CONT .Q10H DREW Rx #:[id number] Keppra 1000 mg/100 mL Premix 200 / 200 100 ML @ 400 mls/hr IV.SIG Q12H DREW Rx#:[id number] Oral 221 / 221 Other 1000 / 1000 Output: Urine 1600 / 1600 Urine Amount (Catheter) 350 / 350 Indwelling Urethral Catheter 350 / 350 Other: # Incontinent Voids 1 Date of Last Bowel Movement 10/20/17 # Bowel Movements 0 Narrative: Opens eyes spontaneously PERRL EOMI Expressive aphasia Right facial droop Dense right upper extremity plegia, although involuntary movement (hand opening ) noted during examination Right lower extremity 1/5 Follows commands left upper and left lower extremity with full strength Sensation intact throughout all extremities Incision: clean, dry, intact - Urinary Catheter Management Indwelling Urethral Catheter Cath placed during this visit: yes, but has since been removed by the nurse Reason for continuing: Decision to DC catheter Insertion date: 10/15/17 Insertion time: 14:00 Removal date: 10/19/17 Removal time: 16:00 Assessment and Plan - Assessment (1) Brain mass Code(s): G93.9 - Disorder of brain, unspecified Status: Acute - Plan Impression: Mr. Delacruz is a 72 y/o male with a history of multiple sclerosis who underwent a left frontal craniotomy for biopsy/resection of a left frontal enhancing mass by Dr. Bliss on 10/16/17. Operative report indicated a gross total resection of the lesion. Pathology remains pending. Post-operatively, Mr. 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 Post-operative CT demonstrates small amount of blood product in the operative bed and persistent vasogenic edema. He had a seizure event the evening of 10/19/17. His Keppra has been increased to [address] head on 10/18/17 following seizure demonstrates evolving blood products in the operative bed. Plan: Consider initiation of anti-depressant for depressed affect. Monitor path results, remains pending (10/21). I called pathology this morning to inquire about results and am awaiting a call back. Per credit card clerk, immunostains remain pending. Oncology consultation when pathology has resulted. Given significant amount of vasogenic edema, would recommend a slow dexamethasone taper (i.e. over 3 weeks). Keppra 1000 mg BID for seizure prophylaxis (breakthrough seizure event on ). Continue with speech therapy and rehab.
[2017-10-22] MEDS: Calcium/Vitamin D 250/125 MG Tablet PO SCH ×3 (09:21→17:03)
[2017-10-22] MEDS: Senna/Docusate Sodium 8.6/50 MG Tablet PO SCH ×2 (09:21→21:39)
[2017-10-22] MEDS: Famotidine PF Inj 20 MG/2 ML Vial IV.PUSH SCH ×2 (09:21→21:38)
--- NOTE | 2017-10-22 10:41 | P.PNIM ---
Subjective Interval history: Tearful and frustrated due to his expressive aphasia and only movement of the right upper arm. Is open to trying mood stabilizing medication or antidepressant. Physical Exam Vital signs: Vital Signs 10/21/17 12:00 10/21/17 16:00 10/21/17 16:10 Temperature 98.0 F 97.5 F L Pulse Rate 88 88 80 Respiratory Rate 22 16 21 Blood Pressure 141/84 H 142/65 H Pulse Oximetry 94 L 97 10/21/17 20:45 10/22/17 00:00 10/22/17 04:00 Temperature 97.3 F L 97.3 F L Pulse Rate 91 H 77 58 L Respiratory Rate 16 18 19 Blood Pressure 165/75 H 118/71 Pulse Oximetry 92 L 93 L 96 10/22/17 08:00 Temperature 97.4 F L Pulse Rate 53 L Respiratory Rate 20 Blood Pressure 119/77 Pulse Oximetry 95 Intake & Output 10/21/17 10/22/17 10/22/17 18:59 06:59 18:59 Intake Total 2200 / 2200 1221 / 1221 100 / 100 Output Total 1600 / 1600 350 / 350 Balance 600 / 600 871 / 871 100 / 100 Weight 60.6 kg Intake: IV 2200 / 2200 100 / 100 NS + KCl 20 mEq Inj 1,000 ML @ 2000 / 2000 100 mls/hr IV.CONT .Q10H DREW Rx #:[id number] Keppra 1000 mg/100 mL Premix 200 / 200 100 / 100 100 ML @ 400 mls/hr IV.SIG Q12H DREW Rx#:[id number] Oral 221 / 221 Other 1000 / 1000 Output: Urine 1600 / 1600 Urine Amount (Catheter) 350 / 350 Indwelling Urethral Catheter 350 / 350 Other: # Incontinent Voids 1 Date of Last Bowel Movement 10/20/17 # Bowel Movements 0 Narrative: General well-nourished well-developed white male laying in bed in no acute distress although frustrated and tearful Cardiovascular: Regular rate and rhythm Lungsclear to auscultation bilaterally Neur: Expressive aphasia Right facial droop Dense right upper extremity plegia, although involuntary movement (hand opening ) noted during examination Right lower extremity 1/5 Follows commands left upper and with full strength Sensation intact throughout all extremities - Urinary Catheter Management Indwelling Urethral Catheter Cath placed during this visit: yes, but has since been removed by the nurse Reason for continuing: Decision to DC catheter Insertion date: 10/15/17 Insertion time: 14:00 Removal date: 10/19/17 Removal time: 16:00 Results - Labs CBC & Chem 7: 10/17/17 08:30 10/22/17 05:33 Laboratory Results - last 24 hr 10/21/17 10/21/17 10/22/17 12:32 17:22 02:28 Sodium Potassium Chloride Carbon Dioxide Anion Gap BUN Creatinine Estimated GFR POC Glucose 160 H 152 H 128 H Random Glucose Calcium 10/22/17 10/22/17 05:33 06:45 Sodium 136 Potassium 4.6 Chloride 102 Carbon Dioxide 27.4 Anion Gap 7 BUN 28 H Creatinine 0.77 Estimated GFR Greater than 89 POC Glucose 106 Random Glucose 117 H Calcium 7.8 L - Procedures 87 right hip hemiarthroplasty Assessment and Plan - Plan Transfer summary 72-year-old very pleasant gentleman presented to [facility] via EMS for an evaluation of a fall. The patient states that he was walking into the library when he started to become uncoordinated, states falling onto his right hip. The patient reports now having a persistent right hib pain. He denies any head trauma or loss of consciousness. The patient states that about the 1 months ago he has been in the emergency department at [facility] due to a facial droop but he left AMA at that time. He was having an MRI completed at the [facility] on October 10 that shows 2 cm peripheral enhancing mass within the left parietal lobe with a moderate amount of surrounding edema highly suspicious for metastatic disease. There is no history of primary malignancy which could have similar appearance although is considered less likely. The CT brain at the [facility] shows heterogenous hyperdense focal hemorrhagic mass at the right frontal lobe 2.4 cm in size with reactive vasogenic edema. The patient has also x-ray of the hip and pelvis that shows acute minimally displaced fracture at the right proximal femur likely intertrochanteric in location. The patient has been transferred to [facility] for higher level of care and neurosurgical/ orthopedic evaluation. 72-year-old white male transferred from [place] for evaluation for brain mass New onset with new right hemiplegia and aphasia Brain mass -CT of the head stat today shows severe vasogenic edema surrounding the left parietal mass, bilateral frontal pneumocephaly -Discussed with neurosurgery, continue Decadron for vasogenic edema. -Follow-up on biopsy. Oncology following Dr. Seay -Neurosurgery Dr. Bliss now covered by Dr. Soler -Neuro checks per unit protocol -Keppra for seizure prophylaxis -CT chest abdomen and pelvis workup of primary lesion, essentially unremarkable except small lung nodule and a 5 mm right lung nodule. -Oncology consultation, Dr. Seay appreciated, suspected primary brain neoplasm -PT/OT/Speech -Neurosurgical service recommends slow three-week taper of Decadron following brain mass resection because of considerable surrounding vasogenic edema. Seizure -Increase Keppra to 1000 mg twice daily. Hip fracture -Orthopedic following -Patient is status post right hip hemiarthroplasty 10/[address] Velazquez -PT/OT COPD -No exacerbation -DuoNeb's as needed GI: -Diet per speech recommendation Adjustment disorder with depressionstart Lexapro DVT GI prophylaxis -Teds SCDs -Hold Pharmacological DVT prophylaxis due to minimal subarachnoid hemorrhage -Pepcid
--- NOTE | 2017-10-22 19:33 | P.PNPL ---
Subjective Interval history: 72 YOWM with Severe COPD, Left parietal mass Had Rt hip hemiarthroplasty Breathing better Anxious Slured speech No new complaint Physical Exam Vital signs: Vital Signs 10/21/17 20:45 10/22/17 00:00 10/22/17 04:00 Temperature 97.3 F L 97.3 F L Pulse Rate 91 H 77 58 L Respiratory Rate 16 18 19 Blood Pressure 165/75 H 118/71 Pulse Oximetry 92 L 93 L 96 10/22/17 08:00 10/22/17 16:00 Temperature 97.4 F L 98.6 F Pulse Rate 53 L 71 Respiratory Rate 20 18 Blood Pressure 119/77 139/77 Pulse Oximetry 95 94 L Intake & Output 10/22/17 10/22/17 10/23/17 06:59 18:59 06:59 Intake Total 1221 / 1221 1820 / 1820 Output Total 350 / 350 500 / 500 725 / 725 Balance 871 / 871 1320 / 1320 -725 / -725 Weight 60.6 kg Intake: IV 1100 / 1100 NS + KCl 20 mEq Inj 1,000 ML @ 1000 / 1000 100 mls/hr IV.CONT .Q10H DREW Rx #:[id number] Keppra 1000 mg/100 mL Premix 100 / 100 100 ML @ 400 mls/hr IV.SIG Q12H DREW Rx#:[id number] Oral 221 / 221 720 / 720 Other 1000 / 1000 Output: Urine 500 / 500 725 / 725 Urine Amount (Catheter) 350 / 350 Indwelling Urethral Catheter 350 / 350 Other: # Incontinent Voids 1 Date of Last Bowel Movement 10/20/17 10/20/17 # Bowel Movements 0 GENERAL: Elderly Wm, NAD SKIN: Warm and dry. HEAD: Normocephalic. EYES: No scleral icterus. No injection or drainage. NECK: Supple, trachea midline. No JVD or lymphadenopathy. CARDIOVASCULAR: Regular rate and rhythm without murmurs, gallops, or rubs. RESPIRATORY: Breath sounds equal bilaterally. No accessory muscle use. GASTROINTESTINAL: Abdomen soft, non-tender, nondistended. MUSCULOSKELETAL: No cyanosis, or edema. BACK: Nontender without obvious deformity. No CVA tenderness. - Urinary Catheter Management Indwelling Urethral Catheter Cath placed during this visit: yes, but has since been removed by the nurse Reason for continuing: Decision to DC catheter Insertion date: 10/15/17 Insertion time: 14:00 Removal date: 10/19/17 Removal time: 16:00 Assessment and Plan - Plan IMPRESSION: Severe COPD Left parietal mass Small Lung nodule Spleeinc nodule Nicotine use S/P Rt hip hemiarthroplasty S/P Brain bx Flacid rt side PLAN: Aerosol nebs Supplement 02 Smoking cessation Neurosurgery, oncology following. Stable from Pulm standpoint Path still pending.
[2017-10-22] MEDS: Escitalopram 10 MG Tablet PO SCH (21:39)
[2017-10-22] MEDS: ALPRAZolam 0.25 MG Tablet PO PRN (21:41)
[2017-10-23] MEDS: levETIRAcetam 1000mg/100mL Inj 100 ML IV.SIG SCH ×2 (06:52→18:12)
[2017-10-23] MEDS: Calcium/Vitamin D 250/125 MG Tablet PO SCH ×3 (09:10→18:12)
[2017-10-23] MEDS: Senna/Docusate Sodium 8.6/50 MG Tablet PO SCH ×2 (09:10→23:57)
[2017-10-23] MEDS: Famotidine PF Inj 20 MG/2 ML Vial IV.PUSH SCH ×2 (09:10→23:57)
--- NOTE | 2017-10-23 11:36 | P.PNNS ---
Subjective Interval history: No acute events overnight. Physical Exam Vital signs: Vital Signs 10/22/17 16:00 10/22/17 20:00 10/22/17 22:50 Temperature 98.6 F 97.6 F Pulse Rate 71 81 Respiratory Rate 18 18 18 Blood Pressure 139/77 150/81 H Pulse Oximetry 94 L 93 L 10/23/17 00:00 10/23/17 04:00 10/23/17 08:00 Temperature 98.6 F 97.4 F L 97.5 F L Pulse Rate 59 L 60 60 Respiratory Rate 18 18 14 Blood Pressure 153/88 H 159/91 H 128/86 Pulse Oximetry 94 L 94 L 96 10/23/17 08:53 Temperature Pulse Rate Respiratory Rate 18 Blood Pressure Pulse Oximetry Intake & Output 10/22/17 10/23/17 10/23/17 18:59 06:59 18:59 Intake Total 1820 / 1820 2742 / 2742 1100 / 1100 Output Total 500 / 500 2225 / 2225 450 / 450 Balance 1320 / 1320 517 / 517 650 / 650 Weight 60.6 kg Intake: IV 1100 / 1100 1100 / 1100 1100 / 1100 NS + KCl 20 mEq Inj 1,000 ML @ 1000 / 1000 1000 / 1000 1000 / 1000 100 mls/hr IV.CONT .Q10H DREW Rx #:[id number] Keppra 1000 mg/100 mL Premix 100 / 100 100 / 100 100 / 100 100 ML @ 400 mls/hr IV.SIG Q12H DREW Rx#:[id number] Oral 720 / 720 442 / 442 Other 1200 / 1200 Output: Urine 500 / 500 2225 / 2225 450 / 450 Other: Other Intake Source Saline Solution Date of Last Bowel Movement 10/20/17 10/22/17 Narrative: Opens eyes spontaneously PERRL EOMI Expressive aphasia Right facial droop Dense right upper extremity plegia Right lower extremity 1/5 Follows commands left upper and left lower extremity with full strength Sensation intact throughout all extremities Incision: clean, dry, intact - Urinary Catheter Management Indwelling Urethral Catheter Cath placed during this visit: yes, but has since been removed by the nurse Reason for continuing: Decision to DC catheter Insertion date: 10/15/17 Insertion time: 14:00 Removal date: 10/19/17 Removal time: 16:00 Assessment and Plan - Assessment (1) Brain mass Code(s): G93.9 - Disorder of brain, unspecified Status: Acute - Plan Impression: Mr. Delacruz is a 72 y/o male with a history of multiple sclerosis who underwent a left frontal craniotomy for biopsy/resection of a left frontal enhancing mass by Dr. Bliss on 10/16/17. Operative report indicated a gross total resection of the lesion. Pathology remains pending. Post-operatively, Mr. 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 Post-operative CT demonstrates small amount of blood product in the operative bed and persistent vasogenic edema. He had a seizure event the evening of 10/19/17. His Keppra has been increased to [address] head on 10/18/17 following seizure demonstrates evolving blood products in the operative bed. Plan: Consider initiation of anti-depressant for depressed affect. Discussed with pathologist this AM. 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 Oncology consultation today given pathology findings. Given significant amount of vasogenic edema, would recommend a slow dexamethasone taper (i.e. over 3 weeks from date of surgery 10/16). Keppra 1000 mg BID for seizure prophylaxis (breakthrough seizure event on ). Continue with speech therapy and rehab.
--- NOTE | 2017-10-23 14:26 | P.PNIM ---
Subjective Interval history: Patient states brother is coming down, states he would prefer to go to one of the 3 SNF around [place]. He is realistic with the results of the pathology and awaiting oncology evaluation. He would like to attempt short term rehab to "buy" some time and would later consider hospice. He is open to having further discussions with Palliative care service to discuss short term and senior living goals. Physical Exam Vital signs: Vital Signs 10/22/17 16:00 10/22/17 20:00 10/22/17 22:50 Temperature 98.6 F 97.6 F Pulse Rate 71 81 Respiratory Rate 18 18 18 Blood Pressure 139/77 150/81 H Pulse Oximetry 94 L 93 L 10/23/17 00:00 10/23/17 04:00 10/23/17 08:00 Temperature 98.6 F 97.4 F L 97.5 F L Pulse Rate 59 L 60 60 Respiratory Rate 18 18 14 Blood Pressure 153/88 H 159/91 H 128/86 Pulse Oximetry 94 L 94 L 96 10/23/17 08:53 Temperature Pulse Rate Respiratory Rate 18 Blood Pressure Pulse Oximetry Intake & Output 10/22/17 10/23/17 10/23/17 18:59 06:59 18:59 Intake Total 1820 / 1820 2742 / 2742 1100 / 1100 Output Total 500 / 500 2225 / 2225 450 / 450 Balance 1320 / 1320 517 / 517 650 / 650 Weight 60.6 kg Intake: IV 1100 / 1100 1100 / 1100 1100 / 1100 NS + KCl 20 mEq Inj 1,000 ML @ 1000 / 1000 1000 / 1000 1000 / 1000 100 mls/hr IV.CONT .Q10H DREW Rx #:[id number] Keppra 1000 mg/100 mL Premix 100 / 100 100 / 100 100 / 100 100 ML @ 400 mls/hr IV.SIG Q12H DREW Rx#:[id number] Oral 720 / 720 442 / 442 Other 1200 / 1200 Output: Urine 500 / 500 2225 / 2225 450 / 450 Other: Other Intake Source Saline Solution Date of Last Bowel Movement 10/20/17 10/22/17 Narrative: GENERAL: This is a well-nourished, well-developed patient, in no apparent distress. CARDIOVASCULAR: Regular rate and rhythm . RESPIRATORY: Clear to auscultation. Breath sounds equal bilaterally. No wheezes , rales, or rhonchi. MUSCULOSKELETAL: Extremities without clubbing, cyanosis, or edema. NEURO: Alert & Oriented x3 to person, place, time, expressive aphasia, bilateral lower ext and left upper arm weakness. - Urinary Catheter Management Indwelling Urethral Catheter Cath placed during this visit: yes, but has since been removed by the nurse Reason for continuing: Decision to DC catheter Insertion date: 10/15/17 Insertion time: 14:00 Removal date: 10/19/17 Removal time: 16:00 Results - Labs CBC & Chem 7: 10/17/17 08:30 10/22/17 05:33 Laboratory Results - last 24 hr 10/22/17 20:40 POC Glucose 149 H - Procedures 87 right hip hemiarthroplasty Assessment and Plan - Plan Transfer summary 72-year-old very pleasant gentleman presented to [facility] via EMS for an evaluation of a fall. The patient states that he was walking into the library when he started to become uncoordinated, states falling onto his right hip. The patient reports now having a persistent right hib pain. He denies any head trauma or loss of consciousness. The patient states that about the 1 months ago he has been in the emergency department at [facility] due to a facial droop but he left AMA at that time. He was having an MRI completed at the [facility] on October 10 that shows 2 cm peripheral enhancing mass within the left parietal lobe with a moderate amount of surrounding edema highly suspicious for metastatic disease. There is no history of primary malignancy which could have similar appearance although is considered less likely. The CT brain at the [facility] shows heterogenous hyperdense focal hemorrhagic mass at the right frontal lobe 2.4 cm in size with reactive vasogenic edema. The patient has also x-ray of the hip and pelvis that shows acute minimally displaced fracture at the right proximal femur likely intertrochanteric in location. The patient has been transferred to [facility] for higher level of care and neurosurgical/ orthopedic evaluation. 72-year-old white male transferred from [place] for evaluation for brain mass New onset with new right hemiplegia and aphasia Brain mass -CT of the head stat today shows severe vasogenic edema surrounding the left parietal mass, bilateral frontal pneumocephaly -Discussed with neurosurgery, continue Decadron for vasogenic edema for total of 3 weeks slow taper. -Follow-up on biopsy; path shows metastatic neuroendocrine - Oncology following Dr. Seay -Neurosurgery Dr. Bliss now covered by Dr. Soler -Neuro checks remains stable -Keppra for seizure prophylaxis -CT chest abdomen and pelvis workup of primary lesion, essentially unremarkable except small lung nodule and a 5 mm right lung nodule. -Oncology consultation, Dr. Seay appreciated, suspected primary brain neoplasm -PT/OT/Speech -Neurosurgical service recommends slow three-week taper of Decadron following brain mass resection because of considerable surrounding vasogenic edema. 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 Patient feels he desire short term rehab to buy some time and then transition to hospice. He would like to discuss prognosis further with Oncology. Seizure -Increase Keppra to 1000 mg twice daily. Hip fracture -Orthopedic following -Patient is status post right hip hemiarthroplasty 10/[address] Velazquez -PT/OT COPD -No exacerbation -DuoNeb's as needed GI: -Diet per speech recommendation Adjustment disorder with depressionstarted Lexapro DVT GI prophylaxis -Teds SCDs -Hold Pharmacological DVT prophylaxis due to minimal subarachnoid hemorrhage -Pepcid Discharge Planning: Likely SNF in [place]
--- NOTE | 2017-10-23 16:59 | P.CONPAL ---
Consult Service: Palliative Care Requesting Physician: Loraine Johnston Reason for Consult: a. To assist with evaluation and management of symptoms including: hemiplegia , seizures b. To assist medical decision maker(s) with: better understanding of current medical conditions; weighing benefits/burdens of medical treatment options; making medical treatment decisions. Primary Care Provider: UNKNOWN in [place] History of Present Illness History of Present Illness: This 72-year-old male, with a past history of MS, more than 50 years of cigarette smoking, and COPD, developed some right facial twitching in the latter part of September. He saw his doctor who reportedly ordered an MRI of his head, but the patient reports that for nearly 2 weeks. In the meantime, he had other signs of focal seizure involving his right face and right arm, eventually culminating in involvement of the right leg in a fall that resulted in right hip pain. He was taken to the hospital in [place] where he was found to have a right femoral neck fracture, and CT scanning of the head revealed a 2.4 cm mass with significant surrounding vasogenic edema consistent with malignancy. He was transferred here to this hospital. Upon arrival here, the following findings were noted: * Slurred speech, weak right side * White count 13.7, hemoglobin 16.7 * Sodium 141, creatinine 0.93, albumin 3.4 * Abdomen/pelvis CT scan again revealed the severe emphysema and some splenic nodules * CT of the chest demonstrated a 5 mm right middle lobe nodule, the emphysema, and some reactive mediastinal and right hilar adenopathy * MRI brain again demonstrated the mass, as well as microhemorrhages consistent with amyloid angiopathy and white matter changes consistent with MS. * X-rays revealed a femoral neck for Patient was admitted for further evaluation. He was taken to the operating room on 10/15/17 and underwent a right hip hemiarthroplasty. The following day he was taken back to the OR and underwent craniectomy with resection of neoplasm. He had significant right hemiplegia and also had his usual chronic left arm and leg weakness from the MS. His speech was quite slurred but has improved somewhat in the last few days. On 10/18/17, the patient had a suspected seizure, and has been on medications for that since then. 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 We are awaiting a reevaluation by oncology in light of the new information. Palliative Care was consulted to assist with symptom management, and to enter into discussions with the patient regarding his current illnesses, prognosis, and the benefits and burdens of the various treatment choices. Review of Systems Constitutional: Reports fatigue, Reports weight loss Eyes: Denies blurry vision Ears, Nose, Mouth, and Throat: Reports poor balance, Denies bleeding gums, Denies pain with swallowing Cardiovascular: Denies chest pain, Denies irregular heart rhythm, Denies rapid, pounding, or irregular heartbeat, Denies shortness of breath Respiratory: Reports cough (Chronic), Denies coughing up blood, Denies shortness of breath, Denies shortness of breath with activity Gastrointestinal: Denies abdominal pain, Denies black, tarry stools, Denies constipation, Denies incontinent of stools, Denies loose stools, Denies vomiting blood Genitourinary: Reports urinary hesitancy, Denies blood in urine Musculoskeletal: Reports abnormal walking (In recent weeks), Reports muscle weakness Skin/Breast: Denies non-healing lesions Neurologic: Reports abnormal hearing (Some mild hearing loss), Reports convulsions, Reports seizure-like activity, Reports tingling/numbness/burning sensations (Right arm), Denies confusion Psychiatric: Denies abnormal sleep pattern, Denies depression, Denies thoughts of hurting/killing yourself Endocrine: Denies excessive sweating Hematologic/Lymphatic: Denies easy bruising Allergic/Immunologic: Denies hives PMFSH - History History Provided By: Patient - Medical History Medical History: Medical History (Last Reviewed 10/22/17 @ 08:23 by Abran Kulkarni) COPD (chronic obstructive pulmonary disease) Multiple sclerosis - Surgical History Surgical History: Surgical History (Last Updated 10/23/17 @ 16:47 by Ana Sánchez MD) History of right hip hemiarthroplasty Hx of tonsillectomy Status post craniectomy - Family History Family History: Family History (Last Updated 10/23/17 @ 16:48 by Ana Sánchez MD) Mother Alzheimer's dementia Father Lung cancer Brother Kidney malignancy Other No significant family history - Tobacco History Second Hand Smoke Exposure: Yes Tobacco Use In Past 30 Days: Yes Smoking Status: Heavy tobacco smoker Tobacco Type: Cigarettes Packs Per Day: 1 Years Smoked: 55 - Alcohol History How Often Do You Have a Drink Containing Alcohol: Never - Substance Use History Substance History: No History of Abuse - Immunization History Tetanus Immunization: >5 Years Hx Influenza Vaccine This Season: No Medications and Allergies Active Medications: Active Medications Acetaminophen (Tylenol) 650 mg PO Q6H PRN PRN Reason: FEVER >101F Last Admin: 10/21/17 08:47 Dose: 650 mg Hydrocodone Bitart/Acetaminophen ([place] 5/325) 1 tab PO Q3H PRN PRN Reason: Pain Scale 3-10 Last Admin: 10/22/17 21:40 Dose: 1 tab Al Hydroxide/Mg Hydroxide (Milk Of Magnesia Liq) 30 ml PO Q12H PRN PRN Reason: Mild Constipation Albuterol (Duoneb Neb (Prn)) 1 ampul NEB Q2HR NEB PRN PRN Reason: WHEEZING Last Admin: 10/21/17 20:44 Dose: 1 ampul Alprazolam (Xanax) 0.25 mg PO Q6H PRN PRN Reason: ANXIETY Last Admin: 10/22/17 21:41 Dose: 0.25 mg Bisacodyl (Dulcolax Supp) 10 mg RECTAL DAILY PRN PRN Reason: SEVERE CONSITIPATION Calcium/Vitamin D (Oscal With D 250/125 Mg) 1 tab PO TID DREW Last Admin: 10/23/17 13:35 Dose: 1 tab Clonidine HCl (Catapres) 0.2 mg PO Q6H PRN PRN Reason: SYS BP GREATER THAN 160 MMHG Last Admin: 10/22/17 00:51 Dose: 0.2 mg Dexamethasone (Decadron Liq) 4 mg PO Q6HR DREW Diphenhydramine HCl (Benadryl) 25 mg PO Q6H PRN PRN Reason: ITCHING Enalaprilat (Vasotec Inj) 1.25 mg IV.PUSH Q6H PRN PRN Reason: SEE LABEL COMMENTS Last Admin: 10/18/17 10:06 Dose: 1.25 mg Escitalopram Oxalate (Lexapro) 10 mg PO HS DREW Last Admin: 10/22/17 21:39 Dose: 10 mg Famotidine (Pepcid Pf Inj) 20 mg IV.PUSH Q12HR DREW Last Admin: 10/23/17 09:10 Dose: 20 mg Potassium Chloride/Sodium Chloride (Ns + Kcl 20 Meq Inj) 1,000 mls @ 100 mls/ hr IV.CONT .Q10H [facility] Last Admin: 10/23/17 11:27 Dose: 100 mls/hr Levetiracetam (Keppra 1000 Mg/100 Ml Premix) 100 mls @ 400 mls/hr IV.SIG Q12H [facility] Last Infusion: 10/23/17 11:27 Dose: Infused Labetalol HCl (Trandate Inj) 10 mg IV.PUSH Q4H PRN PRN Reason: SBP>160 Last Admin: 10/16/17 12:24 Dose: 10 mg Lactulose (Lactulose Liq) 30 ml PO DAILY PRN PRN Reason: SEVERE CONSITIPATION Morphine Sulfate (Morphine Inj) 2 mg IV.PUSH Q2H PRN PRN Reason: PAIN SCALE 6 TO 10 Last Admin: 10/17/17 09:08 Dose: 2 mg Nicotine (Habitrol 14 Mg Patch.24 Hr) 1 patch T-DERMAL DAILY [facility] Last Admin: 10/23/17 09:10 Dose: 1 patch Ondansetron HCl (Zofran Inj) 4 mg IV.PUSH Q6H PRN PRN Reason: NAUSEA OR VOMITING Last Admin: 10/20/17 02:37 Dose: 4 mg Patch Removal (Remove Old Patch) 1 each T-DERMAL DAILY [facility] Last Admin: 10/23/17 09:37 Dose: 1 each Senna/Docusate Sodium (Mirella-Colace) 1 tab PO BID [facility] Last Admin: 10/23/17 09:10 Dose: 1 tab Sennosides (Senokot) 17.2 mg PO Q12H PRN PRN Reason: Moderate Constipation Sodium Chloride (Ns Flush) 2 ml IV.FLUSH BID [facility] Last Admin: 10/23/17 09:10 Dose: Not Given Sodium Chloride (Ns Flush) 2 ml IV.FLUSH PRN PRN PRN Reason: FLUSH AFTER USING IV ACCESS Temazepam (Restoril) 15 mg PO HS PRN PRN Reason: INSOMNIA Vitamin D (Vitamin D3) 5,000 unit PO DAILY [facility] Last Admin: 10/23/17 09:10 Dose: 5,000 unit Allergies Allergy/AdvReac Type Severity Reaction Status Date / Time No Known Allergies Allergy Verified 10/14/17 02:07 Advance Directives Living Will: No Healthcare Surrogate: Yes Health Care Surrogate Name and Number: Sis: Varsha Sheldon [phone] Today's verbally stated goals: The patient has already requested DNR status, and he says he is very unlikely to want to engage in any chemotherapy, but is open to speaking with oncology about the options. He is more worried about where he will go from the hospital , who will take care of him, etc. Ethical and Legal Issues: The patient has capacity for decision-making at this time. He has designated his sister Varsha has healthcare surrogate. There are no ethical issues that would impact his care were decision-making at this time. Physical Exam Vital Signs: Vital Signs - 24 hr 10/22/17 20:00 10/22/17 22:50 10/23/17 00:00 Temperature 97.6 F 98.6 F Pulse Rate 81 59 L Respiratory Rate 18 18 18 Blood Pressure 150/81 H 153/88 H Pulse Oximetry 93 L 94 L 10/23/17 04:00 10/23/17 08:00 10/23/17 08:53 Temperature 97.4 F L 97.5 F L Pulse Rate 60 60 Respiratory Rate 18 14 18 Blood Pressure 159/91 H 128/86 Pulse Oximetry 94 L 96 I&O: Intake & Output 10/21/17 10/22/17 10/23/17 10/24/17 06:59 06:59 06:59 06:59 Intake Total 2040 / 2040 3421 / 3421 4562 / 4562 1100 / 1100 Output Total 2600 / 2600 1950 / 1950 2725 / 2725 450 / 450 Balance -560 / -560 1471 / 1471 1837 / 1837 650 / 650 Weight 57.9 kg 60.6 kg 60.6 kg Physical Exam: CONSTITUTIONAL/GENERAL: This is an adequately nourished patient, in no apparent distress. TUBES/LINES/DRAINS: Peripheral IV SKIN: No jaundice, rashes; stapled craniectomy wound to left scalp. Ecchymoses on upper extremities. No wounds seen anteriorly. Skin temperature appropriate. Not diaphoretic. HEAD: Atraumatic. Normocephalic. EYES: Pupils equal and round and reactive. Extraocular motions intact. No scleral icterus. No injection or drainage. Fundi not examined. ENT: Hearing mildly diminished. Nose without bleeding or purulent drainage. Throat without visible erythema, exudates, masses, or lesions. Visible right facial droop causing some slurred speech. NECK: Trachea midline. Supple, nontender. No palpable thyroid enlargement or nodularity. CARDIOVASCULAR: Regular rate and rhythm without murmurs, gallops, or rubs. No JVD. Peripheral pulses symmetric. RESPIRATORY/CHEST: Symmetric, unlabored respirations. Clear to auscultation. Breath sounds equal bilaterally. No wheezes, rales, or rhonchi. GASTROINTESTINAL: Abdomen soft, non-tender, nondistended. No hepato-splenomegaly , or palpable masses. No guarding. Bowel sounds present. GENITOURINARY: Without palpable bladder distension. MUSCULOSKELETAL: Extremities without clubbing, cyanosis, or edema. No joint tenderness or effusion noted. No calf tenderness. No mottling or clubbing. LYMPHATICS: No palpable cervical or supraclavicular adenopathy. NEUROLOGICAL: Awake and alert. Right face/arm/leg hemiplegia. Some mild left hand weakness. PSYCHIATRIC: No obvious anxiety/depression. no apparent hallucinations or other psychotic thought process. Diagnostic Tests Laboratory: Laboratory Results - last 72 hr 10/20/17 10/21/17 10/21/17 18:35 05:01 12:32 Sodium 136 Potassium 4.8 Chloride 102 Carbon Dioxide 24.8 Anion Gap 9 BUN 27 H Creatinine 0.68 Estimated GFR Greater than 89 POC Glucose 93 160 H Random Glucose 105 Calcium 8.3 L Phosphorus 3.2 Magnesium 2.1 10/21/17 10/22/17 10/22/17 17:22 02:28 05:33 Sodium 136 Potassium 4.6 Chloride 102 Carbon Dioxide 27.4 Anion Gap 7 BUN 28 H Creatinine 0.77 Estimated GFR Greater than 89 POC Glucose 152 H 128 H Random Glucose 117 H Calcium 7.8 L Phosphorus Magnesium 10/22/17 10/22/17 10/22/17 06:45 11:14 20:40 Sodium Potassium Chloride Carbon Dioxide Anion Gap BUN Creatinine Estimated GFR POC Glucose 106 155 H 149 H Random Glucose Calcium Phosphorus Magnesium Result Diagrams: 10/17/17 08:30 10/22/17 05:33 Imaging: Abdomen/Pelvis CT 10/14/17 00:00 CONCLUSION: 1. Splenic nodules are identified including a 3.4 cm mass. This is nonspecific. 2. Severe emphysema. 3. Mild ectasia of the infrarenal abdominal aorta. Chest CT 10/14/17 00:00 CONCLUSION: 1. 5.3 mm right middle lobe nodule. 2. Severe emphysema. 3. Nonspecific mediastinal and right hilar adenopathy. 4. Indeterminate mass within the spleen. Head MRI 10/14/17 00:00 CONCLUSION: 1. 2.5 x 2.1 x 1.8 cm intra-axial mass involving the left parietal lobe with surrounding vasogenic edema consistent with a malignancy. 2. Multiple foci of microhemorrhage scattered throughout both cerebral and cerebellar hemispheres suggesting amyloid angiopathy. 3. White matter changes suggesting multiple sclerosis. Hip X-Ray 10/15/17 08:33 CONCLUSION: Postoperative right hip replacement with normal alignment. Head CT 10/18/17 00:00 CONCLUSION: 1. Surgical changes and subcutaneous parenchymal hemorrhage of the left parietal lobe is not significantly changed. Surrounding cerebral edema persists. No midline shift. 2. No new bleed or other acute abnormality. . Procedures: Right hip hemiarthroplasty 10/15/17 Craniectomy left with resection of neoplasm 10/16/17 Patient/Family Conference Issues Discussed: * Palliative care role, purpose, approach * Additional medical, psychosocial, and spiritual history * Patients general health, functional status, and cognitive changes in the months leading up to the current hospitalization * Patient/family understanding of the current medical problems * Patient/family understanding of prognosis * Patients goals of care as best understood from advance directives and/or conversations and/or values * Current medical treatment options and benefits/burdens of those options * Likely scenarios comparing ongoing aggressive care with a transition to comfort measures only * Questions answered to the best of my ability * Palliative care contact information provided Assessment and Plan - Disease Oriented Problem List (1) 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 and 2, has been living alone. 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 No children. Only family is sister and a brother. Spiritual: "Definitely not" Legal: The patient has capacity for decision-making at this time. He has designated his sister Varsha has healthcare surrogate. Ethical issues impacting care: None Important Contacts: Sister: Varsha Sheldon [phone] Brother: Serg Delacruz Prognosis: The patient's prognosis is poor, as he has an apparent metastatic malignancy to brain. He would be appropriate for hospice services if his goals are comfort oriented. Code Status: No Code DNR Plan: * DO NOT RESUSCITATE * DECISION-MAKING: The patient has capacity for decision-making at this time. He has designated his sister Varsha has healthcare surrogate. * GOALS: The patient has already requested DNR status, and he says he is very unlikely to want to engage in any chemotherapy, but he is open to speaking with oncology about the options. He is more worried about where he will go from the hospital, who will take care of him, etc. * SYMPTOMS: His seizures are being managed with medications at this time. He has no significant pain or dyspnea at this time. * Healthcare surrogate form being completed by CM. * Palliative Care will continue to follow the patient during this hospitalization. Time Spent Total Floor Time (mins): 78 Face to Face Time (mins): 57 >50% Time in Counseling or Coordination of Care: Yes (d/w CM) Appreciation Thank you for the opportunity to participate in the care of Juvenal Delacruz.
[2017-10-23] MEDS ORDERED: DEXAMETHASONE 1 MG/ML PO SCH (18:00)
--- NOTE | 2017-10-23 20:11 | P.PNPL ---
Subjective Interval history: 72 YOWM with Severe COPD, Left parietal mass Had Rt hip hemiarthroplasty Breathing better Anxious Slured speech Brain bx Small cell ca Physical Exam Vital signs: Vital Signs 10/22/17 22:50 10/23/17 00:00 10/23/17 04:00 Temperature 98.6 F 97.4 F L Pulse Rate 59 L 60 Respiratory Rate 18 18 18 Blood Pressure 153/88 H 159/91 H Pulse Oximetry 94 L 94 L 10/23/17 08:00 10/23/17 08:53 10/23/17 12:00 Temperature 97.5 F L 97.2 F L Pulse Rate 60 86 Respiratory Rate 14 18 18 Blood Pressure 128/86 154/80 H Pulse Oximetry 96 94 L 10/23/17 16:00 Temperature 97.7 F Pulse Rate 104 H Respiratory Rate 14 Blood Pressure 161/92 H Pulse Oximetry 98 Intake & Output 10/23/17 10/23/17 10/24/17 06:59 18:59 06:59 Intake Total 2742 / 2742 1100 / 1100 Output Total 2225 / 2225 2675 / 2675 Balance 517 / 517 -1575 / -1575 Weight 60.6 kg Intake: IV 1100 / 1100 1100 / 1100 NS + KCl 20 mEq Inj 1,000 ML @ 1000 / 1000 1000 / 1000 100 mls/hr IV.CONT .Q10H [facility] Rx #:[id number] Keppra 1000 mg/100 mL Premix 100 / 100 100 / 100 100 ML @ 400 mls/hr IV.SIG Q12H [facility] Rx#:[id number] Oral 442 / 442 Other 1200 / 1200 Output: Urine 2225 / 2225 202 / 202 Urine Amount (Catheter) 650 / 650 Condom 650 / 650 Other: Other Intake Source Saline Solution Date of Last Bowel Movement 10/22/17 GENERAL: Eldelry Wm NAD SKIN: Warm and dry. HEAD: Normocephalic. EYES: No scleral icterus. No injection or drainage. NECK: Supple, trachea midline. No JVD or lymphadenopathy. CARDIOVASCULAR: Regular rate and rhythm without murmurs, gallops, or rubs. RESPIRATORY: Breath sounds equal bilaterally. No accessory muscle use. GASTROINTESTINAL: Abdomen soft, non-tender, nondistended. MUSCULOSKELETAL: No cyanosis, or edema. Flacid rt side BACK: Nontender without obvious deformity. No CVA tenderness. - Urinary Catheter Management Indwelling Urethral Catheter Cath placed during this visit: yes, but has since been removed by the nurse Reason for continuing: Decision to DC catheter Insertion date: 10/15/17 Insertion time: 14:00 Removal date: 10/19/17 Removal time: 16:00 Condom Cath placed during this visit: no Assessment and Plan - Plan IMPRESSION: Severe COPD Left parietal mass--small cell ca Small Lung nodule Spleeinc nodule Nicotine use S/P Rt hip hemiarthroplasty S/P Brain bx Flacid rt side PLAN: Aerosol nebs Supplement 02 Smoking cessation Neurosurgery, oncology following. Stable from Pulm standpoint Palliative care consulted
[2017-10-23] MEDS: Dexamethasone 1 MG/ML Oral Syringe PO SCH ×2 (23:54→23:56)
[2017-10-23] MEDS: Escitalopram 10 MG Tablet PO SCH (23:57)
[2017-10-24] MEDS: Dexamethasone 1 MG/ML Oral Syringe PO SCH (05:43)
[2017-10-24] MEDS: levETIRAcetam 1000mg/100mL Inj 100 ML IV.SIG SCH (06:00)
[2017-10-24] MEDS: Senna/Docusate Sodium 8.6/50 MG Tablet PO SCH ×2 (08:27→21:37)
[2017-10-24] MEDS: Calcium/Vitamin D 250/125 MG Tablet PO SCH ×3 (08:27→17:21)
[2017-10-24] MEDS: Famotidine PF Inj 20 MG/2 ML Vial IV.PUSH SCH (08:27)
--- NOTE | 2017-10-24 09:20 | P.PNONC ---
Subjective Interval history: --Patient seen alongside Dr. Seay. --Pathology from left brain mass has resulted, the patient is aware of the results. He has already spoken to the radiation oncologist this morning. --Options for stereotactic radiation, outpatient PET scan and potentially systemic chemotherapy were discussed with the patient. --The patient reports that he has no family or support system. He has 1 sister who resides in [place], and he does not feel that he is able to go home and care for himself. He also does not believe that he is strong enough to withstand further treatment with any quality of life. At this time he is leaning towards hospice. Objective Vital Signs/Intake & Output: Vital Signs 10/23/17 08:53 10/23/17 12:00 10/23/17 16:00 Temperature 97.2 F L 97.7 F Pulse Rate 86 104 H Respiratory Rate 18 18 14 Blood Pressure 154/80 H 161/92 H Pulse Oximetry 94 L 98 10/23/17 20:00 10/24/17 00:00 10/24/17 04:00 Temperature 98 F 97.6 F 97.1 F L Pulse Rate 92 H 99 H 54 L Respiratory Rate 18 18 16 Blood Pressure 155/84 H 177/94 H 166/93 H Pulse Oximetry 95 95 Intake & Output 10/23/17 10/24/17 10/24/17 18:59 06:59 18:59 Intake Total 1200 / 1200 1100 / 1100 Output Total 2675 / 2675 1100 / 1100 Balance -1475 / -1475 0 / 0 Weight 61.8 kg Intake: IV 1200 / 1200 1100 / 1100 NS + KCl 20 mEq Inj 1,000 ML @ 1000 / 1000 1000 / 1000 100 mls/hr IV.CONT .Q10H DREW Rx #:[id number] Keppra 1000 mg/100 mL Premix 200 / 200 100 / 100 100 ML @ 400 mls/hr IV.SIG Q12H DREW Rx#:[id number] Output: Urine 2024 1100 / 1100 Urine Amount (Catheter) 650 / 650 Condom 650 / 650 Other: Date of Last Bowel Movement 10/22/17 Result Diagrams: 10/17/17 08:30 10/22/17 05:33 Laboratory Results: Laboratory Results - last 24 hr 10/23/17 10/24/17 17:39 00:38 POC Glucose 150 H 115 H Medications: Active Medications Generic Name Dose Route Start Last Admin Trade Name Freq PRN Reason Stop Dose Admin Acetaminophen 650 mg 10/14/17 02:11 10/21/17 08:47 Tylenol PO 650 mg Q6H PRN Administration FEVER >101F Hydrocodone Bitart/Acetaminophen 1 tab 10/15/17 08:33 10/22/17 21:40 Prospect 5/325 PO 1 tab Q3H PRN Administration Pain Scale 3-10 Albuterol 1 ampul 10/14/17 02:11 10/21/17 20:44 Duoneb Neb (Prn) NEB 1 ampul Q2HR NEB PRN Administration WHEEZING Alprazolam 0.25 mg 10/15/17 11:39 10/22/17 21:41 Xanax PO 0.25 mg Q6H PRN Administration ANXIETY Calcium/Vitamin D 1 tab 10/15/17 13:00 10/24/17 08:27 Oscal With D 250/125 Mg PO 1 tab TID DREW Administration Clonidine HCl 0.2 mg 10/17/17 12:08 10/22/17 00:51 Catapres PO 0.2 mg Q6H PRN Administration SYS BP GREATER THAN 160 MMHG Enalaprilat 1.25 mg 10/16/17 15:47 10/18/17 10:06 Vasotec Inj IV.PUSH 1.25 mg Q6H PRN Administration SEE LABEL COMMENTS Escitalopram Oxalate 10 mg 10/22/17 21:00 10/23/17 23:57 Lexapro PO 10 mg HS DREW Administration Famotidine 20 mg 10/14/17 09:00 10/24/17 08:27 Pepcid Pf Inj IV.PUSH 20 mg Q12HR DREW Administration Potassium Chloride/Sodium Chloride 1,000 mls @ 100 mls/hr 10/16/17 20:30 23:56 Ns + Kcl 20 Meq Inj IV.CONT 100 mls/hr .Q10H DREW Administration Levetiracetam 100 mls @ 400 mls/hr 10/18/17 19:00 10/24/17 06:44 Keppra 1000 Mg/100 Ml Premix IV.SIG Infused Q12H DREW Infusion Labetalol HCl 10 mg 10/14/17 07:23 10/16/17 12:24 Trandate Inj IV.PUSH 10 mg Q4H PRN Administration SBP>160 Morphine Sulfate 2 mg 10/14/17 02:11 10/17/17 09:08 Morphine Inj IV.PUSH 2 mg Q2H PRN Administration PAIN SCALE 6 TO 10 Nicotine 1 patch 10/14/17 15:00 10/24/17 08:27 Habitrol 14 Mg Patch.24 Hr T-DERMAL 1 patch DAILY DREW Administration Ondansetron HCl 4 mg 10/14/17 02:11 10/20/17 02:37 Zofran Inj IV.PUSH 4 mg Q6H PRN Administration NAUSEA OR VOMITING Patch Removal 1 each 10/15/17 09:00 10/24/17 08:28 Remove Old Patch T-DERMAL 1 each DAILY DREW Administration Senna/Docusate Sodium 1 tab 10/14/17 09:00 10/24/17 08:27 Mirella-Colace PO 1 tab BID DREW Administration Sodium Chloride 2 ml 10/14/17 09:00 10/24/17 08:27 Ns Flush IV.FLUSH Not Given BID DREW Vitamin D 5,000 unit 10/15/17 12:00 10/24/17 08:27 Vitamin D3 PO 5,000 unit DAILY DREW Administration Objective Remarks: GENERAL: Cachectic male patient, lying in bed, in no acute distress. SKIN: Pale, warm and dry. HEAD: Normocephalic. [place] to left anterior lateral head, dry. EYES: No scleral icterus. No injection or drainage. NECK: Supple, trachea midline. CARDIOVASCULAR: Regular rate and rhythm without murmurs. RESPIRATORY: Nonlabored respirations. No accessory muscle use. GASTROINTESTINAL: Abdomen soft, non-tender, nondistended. EXTREMITIES: No cyanosis, or edema. Knee immobilizer to right knee. MUSCULOSKELETAL: Decreased muscle tone. NEUROLOGICAL: No obvious focal deficit. Awake, alert, and oriented x3. slurred speech. PSYCHIATRIC: Appropriate mood and affect; insight and judgment normal. Assessment/Plan - Plan Mr. Delacruz is a 72-year-old male patient, who was found to have a 2 cm parietal lobe mass on MRI at [facility]. The patient was transferred to [place] for neurosurgeon consult. He is status post left frontal craniotomy for biopsy and resection. CT chest showed a 5.3 mm right middle lobe nodule, severe emphysema, right hilar adenopathy 1.7 cm and indeterminant mass in the spleen. Pathology report of the left brain mass shows left parietal brain neoplasm, metastatic neuroendocrine carcinoma. 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 Plan: 1. Small cell carcinoma, of unknown origin. Radiation oncologist has been consulted. Pathology and plan has been discussed with the patient, including stereotactic radiation as an outpatient, PET scan and the possibility of systemic chemotherapy. At this time the patient is declining treatment and wishes to proceed with hospice and being placed in a senior living/care center in [place]. 2. Palliative care has been seeing the patient in regards to treatment goals. It appears the patient has made a decision and we will let them proceed with arranging hospice care. 3. Consult case management to assist in transferring the patient to assist in discharge to a senior living or hospice care center in [place]. - Attending Statement The exam, history, and the medical decision-making described in the above note were completed with the assistance of the mid-level provider. I reviewed and agree with the findings presented. I attest that I had a [id number] encounter with the patient on the same day, and personally performed and documented my assessment and findings in the medical record. D/W pt brain bx result. XRT consult was requested yesterday, Dr Hernandes saw the pt this morning and i have d/w him. Pt has elected for hospice. Consult hospice and CM for d/c. Pt wants to go to [place] in [facility] where is from. Clear to d/c from oncology standpoint.
--- NOTE | 2017-10-24 09:28 | P.PNIM ---
Subjective Interval history: States that he talked to oncology this morning. Would like to go to a nursing facility or Hospice Center close to home in [place]. He does not want to pursue any chemo at this time. Physical Exam Vital signs: Vital Signs 10/23/17 12:00 10/23/17 16:00 10/23/17 20:00 Temperature 97.2 F L 97.7 F 98 F Pulse Rate 86 104 H 92 H Respiratory Rate 18 14 18 Blood Pressure 154/80 H 161/92 H 155/84 H Pulse Oximetry 94 L 98 10/24/17 00:00 10/24/17 04:00 Temperature 97.6 F 97.1 F L Pulse Rate 99 H 54 L Respiratory Rate 18 16 Blood Pressure 177/94 H 166/93 H Pulse Oximetry 95 95 Intake & Output 10/23/17 10/24/17 10/24/17 18:59 06:59 18:59 Intake Total 1200 / 1200 1100 / 1100 Output Total 2675 / 2675 1100 / 1100 Balance -1475 / -1475 0 / 0 Weight 61.8 kg Intake: IV 1200 / 1200 1100 / 1100 NS + KCl 20 mEq Inj 1,000 ML @ 1000 / 1000 1000 / 1000 100 mls/hr IV.CONT .Q10H DREW Rx #:[id number] Keppra 1000 mg/100 mL Premix 200 / 200 100 / 100 100 ML @ 400 mls/hr IV.SIG Q12H DREW Rx#:[id number] Output: Urine 2024 / 2024 1100 / 1100 Urine Amount (Catheter) 650 / 650 Condom 650 / 650 Other: Date of Last Bowel Movement 10/22/17 Narrative: GENERAL: This is a well-nourished, well-developed patient, in no apparent distress. CARDIOVASCULAR: Regular rate and rhythm . RESPIRATORY: Clear to auscultation. Breath sounds equal bilaterally. No wheezes , rales, or rhonchi. MUSCULOSKELETAL: Extremities without clubbing, cyanosis, or edema. NEURO: Alert & Oriented x3 to person, place, time, expressive aphasia, bilateral lower ext and left upper arm weakness. - Urinary Catheter Management Indwelling Urethral Catheter Cath placed during this visit: yes, but has since been removed by the nurse Reason for continuing: Decision to DC catheter Insertion date: 10/15/17 Insertion time: 14:00 Removal date: 10/19/17 Removal time: 16:00 Condom Cath placed during this visit: no Results - Labs CBC & Chem 7: 10/17/17 08:30 10/22/17 05:33 Laboratory Results - last 24 hr 10/23/17 10/24/17 17:39 00:38 POC Glucose 150 H 115 H - Procedures 87 right hip hemiarthroplasty Assessment and Plan - Plan Transfer summary 72-year-old very pleasant gentleman presented to [facility] via EMS for an evaluation of a fall. The patient states that he was walking into the library when he started to become uncoordinated, states falling onto his right hip. The patient reports now having a persistent right hib pain. He denies any head trauma or loss of consciousness. The patient states that about the 1 months ago he has been in the emergency department at [facility] due to a facial droop but he left AMA at that time. He was having an MRI completed at the [facility] on October 10 that shows 2 cm peripheral enhancing mass within the left parietal lobe with a moderate amount of surrounding edema highly suspicious for metastatic disease. There is no history of primary malignancy which could have similar appearance although is considered less likely. The CT brain at the [facility] shows heterogenous hyperdense focal hemorrhagic mass at the right frontal lobe 2.4 cm in size with reactive vasogenic edema. The patient has also x-ray of the hip and pelvis that shows acute minimally displaced fracture at the right proximal femur likely intertrochanteric in location. The patient has been transferred to [facility] for higher level of care and neurosurgical/ orthopedic evaluation. 72-year-old white male transferred from [place] for evaluation for brain mass New onset with new right hemiplegia and aphasia Brain mass which show metastatic cancer -CT of the head stat shows severe vasogenic edema surrounding the left parietal mass, bilateral frontal pneumocephaly -Discussed with neurosurgery, continue Decadron for vasogenic edema for total of 3 weeks slow taper. 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 Seay, patient is declining chemotherapy and looking towards palliative care hospice. -Neurosurgery Dr. Bliss now covered by Dr. Soler -Neuro checks remains stable -Keppra for seizure prophylaxis -CT chest abdomen and pelvis workup of primary lesion, essentially unremarkable except small lung nodule and a 5 mm right lung nodule. -Oncology consultation, Dr. Seay appreciated, suspected primary brain neoplasm -PT/OT/Speech -Neurosurgical service recommends slow three-week taper of Decadron following brain mass resection because of considerable surrounding vasogenic edema. Consult Palliative care for discussion on short term goals and shelter goals. Patient feels he desire short term rehab to buy some time and then transition to hospice. He discussed prognosis further with Oncology today. Seizure -Increase Keppra to 1000 mg twice daily. Hip fracture -Orthopedic following -Patient is status post right hip hemiarthroplasty 10/[address] Velazquez -PT/OT COPD -No exacerbation -DuoNeb's as needed GI: -Diet per speech recommendation Adjustment disorder with depressionstarted Lexapro DVT GI prophylaxis -Teds SCDs -Hold Pharmacological DVT prophylaxis due to minimal subarachnoid hemorrhage -Pepcid Discharge Planning: Likely SNF in [place] or inpatient hospice center
--- NOTE | 2017-10-24 09:30 | P.CON ---
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 Patient is a status post surgical resection. Per the records and per my discussion with Dr. Seay it appears that the patient experience right facial droop about a month ago and was evaluated that [facility] where workup detected a brain mass. Patient was advised to undergo further workup with the patient signed out AGAINST MEDICAL ADVICE. It appears that recently he then developed loss of balance weakness of the right side of the body and fell as a result he was transferred to [facility] MRI of the brain was again performed which showed a 2 cm left parietal lobe mass as a result of this the patient was a transfer to [facility] for neurosurgical evaluation and has undergone surgical resection with Dr. Bliss. Patient has also a history of multiple sclerosis and amyloid angiopathy. Consult has been placed for possible radiosurgery treatment options for a boost to the brain as well as possible to the lung. I have discussed this case today with Dr. Seay. Review of Systems Constitutional: Reports anorexia, Reports fatigue, Reports lack of energy, Reports weakness Eyes: Denies blind spots, Denies blurry vision, Denies bulging eyes, Denies change in vision, Denies double vision, Denies discharge, Denies dry eyes, Denies floaters, Denies irritation, Denies itchy eyes, Denies loss of vision, Denies pain, Denies requires corrective lenses, Denies sensitivity to light, Denies other Ears, Nose, Mouth, and Throat: Reports dry mouth, Reports headache(s) Cardiovascular: Reports shortness of breath with activity Respiratory: Reports shortness of breath with activity Gastrointestinal: Reports constipation, Reports cramping Genitourinary: Denies blood in semen, Denies blood in urine, Denies decreased urination, Denies difficulty urinating, Denies difficulty with ejaculations, Denies erectile dysfunction, Denies genital lesions, Denies genital pain, Denies painful urination, Denies side pain, Denies frequent nighttime urination , Denies painful ejaculations, Denies penile discharge, Denies scrotal swelling , Denies testicle lump, Denies testicle pain, Denies urinary frequency, Denies urinary hesitancy, Denies urinary incontinence, Denies urinary urgency, Denies other Musculoskeletal: Reports decreased muscle mass, Reports joint pain, Reports limited joint movement, Reports muscle weakness Skin/Breast: Reports dry skin Neurologic: Reports abnormal speech, Reports dizziness, Reports frequent falls, Reports headache(s), Reports localized weakness, Reports unsteadiness, Reports weakness Comments: Patient says that he has some issues of finding words following surgical resection Psychiatric: Reports change in appetite, Reports difficulty concentrating, Reports lack of enjoyment Endocrine: Denies cold intolerance, Denies excessive sweating, Denies flushing, Denies heat intolerance, Denies increased hunger, Denies increased thirst, Denies increased urination, Denies rapid, pounding, or irregular heartbeat, Denies other Hematologic/Lymphatic: Denies easy bleeding, Denies easy bruising, Denies enlarged lymph nodes, Denies other Allergic/Immunologic: Denies GI upset with certain foods, Denies hives, Denies itchy eyes, Denies lip swelling, Denies seasonal runny nose, Denies throat swelling, Denies tongue swelling, Denies wheezing, Denies other PMFSH - History History Provided By: Patient - Medical History Medical History: Medical History (Last Reviewed 10/22/17 @ 08:23 by Abran Kulkarni) COPD (chronic obstructive pulmonary disease) Multiple sclerosis - Surgical History Surgical History: Surgical History (Last Updated 10/23/17 @ 16:47 by Ana Sánchez MD) History of right hip hemiarthroplasty Hx of tonsillectomy Status post craniectomy - Family History Family History: Family History (Last Updated 10/23/17 @ 16:48 by Ana Sánchez MD) Mother Alzheimer's dementia Father Lung cancer Brother Kidney malignancy Other No significant family history - Tobacco History Second Hand Smoke Exposure: Yes Tobacco Use In Past 30 Days: Yes Smoking Status: Heavy tobacco smoker Tobacco Type: Cigarettes Packs Per Day: 1 Years Smoked: 55 - Alcohol History How Often Do You Have a Drink Containing Alcohol: Never - Substance Use History Substance History: No History of Abuse - Immunization History Tetanus Immunization: >5 Years Hx Influenza Vaccine This Season: No Medications and Allergies Active Medications: Active Medications Acetaminophen (Tylenol) 650 mg PO Q6H PRN PRN Reason: FEVER >101F Last Admin: 08/13/18 08:47 Dose: 650 mg Hydrocodone Bitart/Acetaminophen ([place] 5/325) 1 tab PO Q3H PRN PRN Reason: Pain Scale 3-10 Last Admin: 10/22/17 21:40 Dose: 1 tab Al Hydroxide/Mg Hydroxide (Milk Of Razia Albarran) 30 ml PO Q12H PRN PRN Reason: Mild Constipation Albuterol (Duoneb Neb (Prn)) 1 ampul NEB Q2HR NEB PRN PRN Reason: WHEEZING Last Admin: 10/21/17 20:44 Dose: 1 ampul Alprazolam (Xanax) 0.25 mg PO Q6H PRN PRN Reason: ANXIETY Last Admin: 10/22/17 21:41 Dose: 0.25 mg Bisacodyl (Dulcolax Supp) 10 mg RECTAL DAILY PRN PRN Reason: SEVERE CONSITIPATION Calcium/Vitamin D (Oscal With D 250/125 Mg) 1 tab PO TID DREW Last Admin: 10/24/17 08:27 Dose: 1 tab Clonidine HCl (Catapres) 0.2 mg PO Q6H PRN PRN Reason: SYS BP GREATER THAN 160 MMHG Last Admin: 10/22/17 00:51 Dose: 0.2 mg Dexamethasone (Decadron) 4 mg PO Q6HR DREW Diphenhydramine HCl (Benadryl) 25 mg PO Q6H PRN PRN Reason: ITCHING Enalaprilat (Vasotec Inj) 1.25 mg IV.PUSH Q6H PRN PRN Reason: SEE LABEL COMMENTS Last Admin: 10/18/17 10:06 Dose: 1.25 mg Escitalopram Oxalate (Lexapro) 10 mg PO HS [facility] Last Admin: 10/23/17 23:57 Dose: 10 mg Famotidine (Pepcid Pf Inj) 20 mg IV.PUSH Q12HR [facility] [place] Last Admin: 10/24/17 08:27 Dose: 20 mg Potassium Chloride/Sodium Chloride (Ns + Kcl 20 Meq Inj) 1,000 mls @ 100 mls/ hr IV.CONT .Q10H [facility] [place] Last Admin: 10/23/17 23:56 Dose: 100 mls/hr Levetiracetam (Keppra 1000 Mg/100 Ml Premix) 100 mls @ 400 mls/hr IV.SIG Q12H [facility] [place] Last Infusion: 10/24/17 06:44 Dose: Infused Labetalol HCl (Trandate Inj) 10 mg IV.PUSH Q4H PRN PRN Reason: SBP>160 Last Admin: 10/16/17 12:24 Dose: 10 mg Lactulose (Lactulose Liq) 30 ml PO DAILY PRN PRN Reason: SEVERE CONSITIPATION Morphine Sulfate (Morphine Inj) 2 mg IV.PUSH Q2H PRN PRN Reason: PAIN SCALE 6 TO 10 Last Admin: 10/17/17 09:08 Dose: 2 mg Nicotine (Habitrol 14 Mg Patch.24 Hr) 1 patch T-DERMAL DAILY [facility] [place] Last Admin: 10/24/17 08:27 Dose: 1 patch Ondansetron HCl (Zofran Inj) 4 mg IV.PUSH Q6H PRN PRN Reason: NAUSEA OR VOMITING Last Admin: 10/20/17 02:37 Dose: 4 mg Patch Removal (Remove Old Patch) 1 each T-DERMAL DAILY [facility] [place] Last Admin: 10/24/17 08:28 Dose: 1 each Senna/Docusate Sodium (Mirella-Colace) 1 tab PO BID [facility] [place] Last Admin: 10/24/17 08:27 Dose: 1 tab Sennosides (Senokot) 17.2 mg PO Q12H PRN PRN Reason: Moderate Constipation Sodium Chloride (Ns Flush) 2 ml IV.FLUSH BID [facility] [place] Last Admin: 10/24/17 08:27 Dose: Not Given Sodium Chloride (Ns Flush) 2 ml IV.FLUSH PRN PRN PRN Reason: FLUSH AFTER USING IV ACCESS Temazepam (Restoril) 15 mg PO HS PRN PRN Reason: INSOMNIA Vitamin D (Vitamin D3) 5,000 unit PO DAILY [facility] [place] Last Admin: 10/24/17 08:27 Dose: 5,000 unit Allergies Allergy/AdvReac Type Severity Reaction Status Date / Time No Known Allergies Allergy Verified 10/14/17 02:07 Physical Exam Vital signs: Vital Signs 10/23/17 12:00 10/23/17 16:00 10/23/17 20:00 Temperature 97.2 F L 97.7 F 98 F Pulse Rate 86 104 H 92 H Respiratory Rate 18 14 18 Blood Pressure 154/80 H 161/92 H 155/84 H Pulse Oximetry 94 L 98 10/24/17 00:00 10/24/17 04:00 Temperature 97.6 F 97.1 F L Pulse Rate 99 H 54 L Respiratory Rate 18 16 Blood Pressure 177/94 H 166/93 H Pulse Oximetry 95 95 Intake & Output 10/23/17 10/24/17 10/24/17 18:59 06:59 18:59 Intake Total 1200 / 1200 1100 / 1100 Output Total 2675 / 2675 1100 / 1100 Balance -1475 / -1475 0 / 0 Weight 61.8 kg Intake: IV 1200 / 1200 1100 / 1100 NS + KCl 20 mEq Inj 1,000 ML @ 1000 / 1000 1000 / 1000 100 mls/hr IV.CONT .Q10H DREW Rx #:[id number] Keppra 1000 mg/100 mL Premix 200 / 200 100 / 100 100 ML @ 400 mls/hr IV.SIG Q12H DREW Rx#:[id number] Output: Urine 2024 1100 / 1100 Urine Amount (Catheter) 650 / 650 Condom 650 / 650 Other: Date of Last Bowel Movement 10/22/17 - Constitutional no acute distress, thin, chronically ill appearing, cooperative - Routine HEENT Exam Head: Present: scalp tenderness Eye: Present: EOMI ENT: Present: mucous membranes dry, external ear normal Comments: There is a surgical scar present on the left temporal area. It is healing well with no signs of wound dehiscence. There is alopecia of the surgical scar area. No active discharge detected. - Routine Neck Exam Present: supple, trachea midline - Routine Respiratory Exam Present: decreased breath sounds, diminished air movement Comments: There is decreased ventilatory and respiratory effort which is equal and bilateral. Lungs are clear to auscultation - Routine Cardiovascular Exam Comments: Heart is regular in rate and rhythm. No murmurs. - Routine Abdominal Exam Present: soft - Routine Exam Comments: Dang catheter in place - Routine Extremities Exam Comments: Patient with no lower extremity edema detected. - Routine Skin Exam Present: dry - Routine Neurological Exam Present: alert, oriented X3, moving all extremities When discussing with the patient and asking questions the patient states that he needs some time to get his thoughts in order. He seems to have a slight expressive aphasia, but eventually is able to find words and discuss his status and wishes. No motor function deficits were detected. 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 Patient being evaluated for possible wrist therapy treatment option Plan: Case has been discussed with Dr. Seay. I have discussed this case also with the patient and the nurse navigator. At the present time the patient does not know exactly how he is going to proceed. He has a brother and sister coming from [place] to help and assist. Patient says that he is unable to take care of himself at the present time. He says that he wants to know the extent of disease to determine if he would like to proceed forward with treatments or perhaps that she is going to hospice care. I advised the patient at the present time he appears to have a solitary brain lesion that can be taken care of via radiosurgery following surgical resection. He also has solitary lung lesion as far as we know that could potentially could be treated via radiosurgery as well. The ideal thing will be to wait for the patient to be discharged and perform a PET scan as an outpatient to determine how to proceed. I advised the patient that my recommendation would be to do a PET scan as an outpatient, assess extent of disease and discuss his treatment options. As a result of this I will place an order for a PET scan to be performed as an outpatient and for the patient to return as an outpatient for discussion of treatment options. He was agreeable to this plan. He was advised if I could be of any further assistance or to please let me know otherwise we will proceed as above. The MRI of the brain has been independently reviewed by me. Dr. Seay thank you much for the referral of this patient. And allowing me to participate in his care. Should you have any further questions or concerns please do not hesitate to contact me.
--- NOTE | 2017-10-24 18:50 | P.PNPL ---
Subjective Interval history: 72 YOWM with Severe COPD, Left parietal mass Had Rt hip hemiarthroplasty Breathing better Anxious Slured speech Brain bx Small cell ca Would prefer to go back to [place] Physical Exam Vital signs: Vital Signs 10/23/17 20:00 10/24/17 00:00 10/24/17 04:00 Temperature 98 F 97.6 F 97.1 F L Pulse Rate 92 H 99 H 54 L Respiratory Rate 18 18 16 Blood Pressure 155/84 H 177/94 H 166/93 H Pulse Oximetry 95 95 10/24/17 08:00 10/24/17 12:00 Temperature 97.6 F 97.5 F L Pulse Rate 57 L 81 Respiratory Rate 15 18 Blood Pressure 159/87 H 137/82 Pulse Oximetry 95 93 L Intake & Output 10/23/17 10/24/17 10/24/17 18:59 06:59 18:59 Intake Total 1200 / 1200 1100 / 1100 Output Total 2675 / 2675 1100 / 1100 Balance -1475 / -1475 0 / 0 Weight 61.8 kg Intake: IV 1200 / 1200 1100 / 1100 NS + KCl 20 mEq Inj 1,000 ML @ 1000 / 1000 1000 / 1000 100 mls/hr IV.CONT .Q10H DREW Rx #:[id number] Keppra 1000 mg/100 mL Premix 200 / 200 100 / 100 100 ML @ 400 mls/hr IV.SIG Q12H DREW Rx#:[id number] Output: Urine 2024 / 2024 1100 / 1100 Urine Amount (Catheter) 650 / 650 Condom 650 / 650 Other: Date of Last Bowel Movement 10/22/17 # Bowel Movements 1 GENERAL: Elderly WM, NAD SKIN: Warm and dry. HEAD: Normocephalic. EYES: No scleral icterus. No injection or drainage. NECK: Supple, trachea midline. No JVD or lymphadenopathy. CARDIOVASCULAR: Regular rate and rhythm without murmurs, gallops, or rubs. RESPIRATORY: Breath sounds equal bilaterally. No accessory muscle use. GASTROINTESTINAL: Abdomen soft, non-tender, nondistended. MUSCULOSKELETAL: No cyanosis, or edema Flacid rt side. BACK: Nontender without obvious deformity. No CVA tenderness. - Urinary Catheter Management Indwelling Urethral Catheter Cath placed during this visit: yes, but has since been removed by the nurse Reason for continuing: Decision to DC catheter Insertion date: 10/15/17 Insertion time: 14:00 Removal date: 10/19/17 Removal time: 16:00 Condom Cath placed during this visit: no Assessment and Plan - Plan IMPRESSION: Severe COPD Left parietal mass--small cell ca Small Lung nodule Spleeinc nodule Nicotine use S/P Rt hip hemiarthroplasty S/P Brain bx Flacid rt side PLAN: Aerosol nebs Supplement 02 Smoking cessation Neurosurgery, oncology following. Stable from Pulm standpoint Palliative care consulted DC Plans underway
[2017-10-24] MEDS: levETIRAcetam 500 MG Tablet PO SCH (21:37)
[2017-10-24] MEDS: Escitalopram 10 MG Tablet PO SCH (21:37)
[2017-10-24] MEDS: Famotidine 20 MG Tablet PO SCH (21:37)
--- NOTE | 2017-10-24 22:15 | P.PNNS ---
Subjective Interval history: Metastatic small cell resulted - but patient opting for no treatment / leaning toward hospice Physical Exam Vital signs: Vital Signs 10/24/17 00:00 10/24/17 04:00 10/24/17 08:00 Temperature 97.6 F 97.1 F L 97.6 F Pulse Rate 99 H 54 L 57 L Respiratory Rate 18 16 15 Blood Pressure 177/94 H 166/93 H 159/87 H Pulse Oximetry 95 95 95 10/24/17 12:00 10/24/17 16:00 Temperature 97.5 F L 98.5 F Pulse Rate 81 86 Respiratory Rate 18 18 Blood Pressure 137/82 163/95 H Pulse Oximetry 93 L 93 L Intake & Output 10/24/17 10/24/17 10/25/17 06:59 18:59 06:59 Intake Total 1100 / 1100 960 / 960 Output Total 1100 / 1100 2550 / 2550 Balance 0 / 0 -1590 / -1590 Weight 61.8 kg Intake: IV 1100 / 1100 NS + KCl 20 mEq Inj 1,000 ML @ 1000 / 1000 100 mls/hr IV.CONT .Q10H DREW Rx #:[id number] Keppra 1000 mg/100 mL Premix 100 / 100 100 ML @ 400 mls/hr IV.SIG Q12H DREW Rx#:[id number] Oral 960 / 960 Output: Urine 1100 / 1100 2550 / 2550 Other: Date of Last Bowel Movement 10/22/17 # Bowel Movements 1 Narrative: NEURO: Alert & Oriented x3 to person, place, time, expressive aphasia, bilateral lower ext and left upper arm weakness. RLE 2/5, RUE 1/5 (shoulder) -- both improved from earlier in the week. LUE/LLE full strength - Urinary Catheter Management Indwelling Urethral Catheter Cath placed during this visit: yes, but has since been removed by the nurse Reason for continuing: Decision to DC catheter Insertion date: 10/15/17 Insertion time: 14:00 Removal date: 10/19/17 Removal time: 16:00 Condom Cath placed during this visit: no Assessment and Plan - Assessment (1) Brain mass Code(s): G93.9 - Disorder of brain, unspecified Status: Acute - Plan Impression: Mr. Delacruz is a 72 y/o male with a history of multiple sclerosis who underwent a left frontal craniotomy for biopsy/resection of a left frontal enhancing mass by Dr. Bliss on 10/16/17. Operative report indicated a gross total resection of the lesion. Pathology remains pending. Post-operatively, Mr. 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 Post-operative CT demonstrates small amount of blood product in the operative bed and persistent vasogenic edema. He had a seizure event the evening of 10/19/17. His Keppra has been increased to [address] head on 10/18/17 following seizure demonstrates evolving blood products in the operative bed. Plan: Defer palliation decision to patient and allied services. Given significant amount of vasogenic edema, would recommend a slow dexamethasone taper (i.e. over 3 weeks from date of surgery 10/16). Keppra 1000 mg BID for seizure prophylaxis (breakthrough seizure event on ). Continue with speech therapy and rehab.
[2017-10-25] MEDS: Calcium/Vitamin D 250/125 MG Tablet PO SCH ×3 (08:48→17:06)
[2017-10-25] MEDS: Senna/Docusate Sodium 8.6/50 MG Tablet PO SCH ×2 (08:48→22:55)
[2017-10-25] MEDS: levETIRAcetam 500 MG Tablet PO SCH ×2 (08:48→22:55)
[2017-10-25] MEDS: Famotidine 20 MG Tablet PO SCH ×2 (08:48→22:55)
[2017-10-25] MEDS: Acetaminophen 325 MG Tablet PO PRN (08:54)
--- NOTE | 2017-10-25 09:16 | P.PNNS ---
Subjective Interval history: Strength improving. Physical Exam Vital signs: Vital Signs 10/24/17 12:00 10/24/17 16:00 10/24/17 20:00 Temperature 97.5 F L 98.5 F 97.5 F L Pulse Rate 81 86 76 Respiratory Rate 18 18 18 Blood Pressure 137/82 163/95 H 146/84 H Pulse Oximetry 93 L 93 L 93 L 10/25/17 00:00 10/25/17 04:00 10/25/17 04:55 Temperature 97.9 F 98 F Pulse Rate 80 65 Respiratory Rate 20 20 Blood Pressure 176/98 H 156/95 H 152/90 H Pulse Oximetry 91 L 95 10/25/17 07:03 10/25/17 08:00 Temperature 97.5 F L Pulse Rate 69 Respiratory Rate 12 18 Blood Pressure 166/98 H Pulse Oximetry 96 Intake & Output 10/24/17 10/25/17 10/25/17 18:59 06:59 18:59 Intake Total 960 / 960 1480 / 1480 Output Total 2550 / 2550 3000 / 3000 Balance -1590 / -1590 -1520 / -1520 Weight 61.8 kg Intake: IV 1000 / 1000 NS + KCl 20 mEq Inj 1,000 ML @ 1000 / 1000 100 mls/hr IV.CONT .Q10H DREW Rx #:[id number] Oral 960 / 960 480 / 480 Output: Urine 2550 / 2550 Urine Amount (Catheter) 3000 / 3000 Condom 3000 / 3000 Other: Date of Last Bowel Movement 10/25/17 10/24/17 # Bowel Movements 1 1 Narrative: NEURO: Alert & Oriented x3 to person, place, time, expressive aphasia, bilateral lower ext and left upper arm weakness. RLE 2/5, RUE 2/5 (shoulder) -- both improved from earlier in the week. LUE/LLE full strength - Urinary Catheter Management Indwelling Urethral Catheter Cath placed during this visit: yes, but has since been removed by the nurse Reason for continuing: Decision to DC catheter Insertion date: 10/15/17 Insertion time: 14:00 Removal date: 10/19/17 Removal time: 16:00 Condom Cath placed during this visit: no Assessment and Plan - Assessment (1) Brain mass Code(s): G93.9 - Disorder of brain, unspecified Status: Acute - Plan Impression: Mr. Delacruz is a 72 y/o male with a history of multiple sclerosis who underwent a left frontal craniotomy for biopsy/resection of a left frontal enhancing mass by Dr. Bliss on 10/16/17. Operative report indicated a gross total resection of the lesion. Pathology remains pending. Post-operatively, Mr. 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 Post-operative CT demonstrates small amount of blood product in the operative bed and persistent vasogenic edema. He had a seizure event the evening of 10/19/17. His Keppra has been increased to [address] head on 10/18/17 following seizure demonstrates evolving blood products in the operative bed. Plan: Given significant amount of vasogenic edema, would recommend a slow dexamethasone taper (i.e. over 3 weeks from date of surgery 10/16). Keppra 1000 mg BID for seizure prophylaxis (breakthrough seizure event on ). Continue with speech therapy and rehab. Obdulio out today. Patient has decided to go to SNF and will evaluate med/rad onc options as he improves. Recommend SRS to surgical bed if he chooses for treatment as this should respond well to XRT.
--- NOTE | 2017-10-25 12:23 | P.PNPAL ---
Palliative care met with Mr. Delacruz for further clarification regarding goals of medical treatment. Mr. Delacruz previously indicated he wishes to meet with hospice as he did not want to pursue treatment options. interactive media project manager notes indicate patient was not ready for hospice. Upon entrance into patient's room today Mr Delacruz had 2 friends present and was trying to handle personal affairs. Returned at a later time and friends were no longer present. Mr. Delacruz is alert, oriented, and able to make his needs known. He continues with dysphasia but is mostly understandable during conversation. He is able to recall his conversation with palliative care MD Princess. Patient indicates while he understands his medical condition he has decided to attempt some rehab for his right arm as he has seen a slight improvement. Patient indicates getting home to his cats and handling his affairs is most important to him at this time. He further tells me he would like time to give others his belonging because "helping people is very important" to him. Offered emotional support and active listening. Mr. Delacruz enjoys talking about his cats and becomes appropriately tearful when thinking and talking about what the future holds. Updated rn case management on patient's desire for rehab. Patient reports he will follow-up with hospice in [place] when he feels he's ready. CM currently working on possible rehab placement in [place]. Mr. Delacruz experiences what he verbalizes as "gas bubble pain" multiple times during my visit. He feels medication helps some but due to weakness he is unable to maneuver his body weight to further assist. Mr. Delacruz is VERY CLEAR on DNR status. Reports he has a [facility] DNR at home on his fridge. Assisted with filling out another one today to go with him upon discharge. Copy placed in chart and copy faxed to HIM to be scanned into EMR. Palliative care will continue to follow throughout hospitalization.
--- NOTE | 2017-10-25 14:38 | P.PNPL ---
Subjective Interval history: 72 YOWM with Severe COPD, Left parietal mass Had Rt hip hemiarthroplasty Breathing better Anxious Slured speech Brain bx Small cell ca Would prefer to go back to [place] Physical Exam Vital signs: Vital Signs 10/24/17 16:00 10/24/17 20:00 10/25/17 00:00 Temperature 98.5 F 97.5 F L 97.9 F Pulse Rate 86 76 80 Respiratory Rate 18 18 20 Blood Pressure 163/95 H 146/84 H 176/98 H Pulse Oximetry 93 L 93 L 91 L 10/25/17 04:00 10/25/17 04:55 10/25/17 07:03 Temperature 98 F Pulse Rate 65 Respiratory Rate 20 12 Blood Pressure 156/95 H 152/90 H Pulse Oximetry 95 10/25/17 08:00 10/25/17 12:00 Temperature 97.5 F L 98.1 F Pulse Rate 69 85 Respiratory Rate 18 20 Blood Pressure 166/98 H 120/79 Pulse Oximetry 96 96 Intake & Output 10/24/17 10/25/17 10/25/17 18:59 06:59 18:59 Intake Total 960 / 960 1480 / 1480 Output Total 2550 / 2550 3000 / 3000 Balance -1590 / -1590 -1520 / -1520 Weight 61.8 kg Intake: IV 1000 / 1000 NS + KCl 20 mEq Inj 1,000 ML @ 1000 / 1000 100 mls/hr IV.CONT .Q10H DREW Rx #:[id number] Oral 960 / 960 480 / 480 Output: Urine 2550 / 2550 Urine Amount (Catheter) 3000 / 3000 Condom 3000 / 3000 Other: Date of Last Bowel Movement 10/25/17 10/24/17 # Bowel Movements 1 1 GENERAL: Elderly WM, NAD SKIN: Warm and dry. HEAD: Normocephalic. EYES: No scleral icterus. No injection or drainage. NECK: Supple, trachea midline. No JVD or lymphadenopathy. CARDIOVASCULAR: Regular rate and rhythm without murmurs, gallops, or rubs. RESPIRATORY: Breath sounds equal bilaterally. No accessory muscle use. GASTROINTESTINAL: Abdomen soft, non-tender, nondistended. MUSCULOSKELETAL: No cyanosis, or edema. * BACK: Nontender without obvious deformity. No CVA tenderness. - Urinary Catheter Management Indwelling Urethral Catheter Cath placed during this visit: yes, but has since been removed by the nurse Reason for continuing: Decision to DC catheter Insertion date: 10/15/17 Insertion time: 14:00 Removal date: 10/19/17 Removal time: 16:00 Condom Cath placed during this visit: no Assessment and Plan - Plan IMPRESSION: Severe COPD Left parietal mass--small cell ca Small Lung nodule Spleeinc nodule Nicotine use S/P Rt hip hemiarthroplasty S/P Brain bx Flacid rt side PLAN: Aerosol nebs Supplement 02 Smoking cessation Neurosurgery, oncology following. Stable from Pulm standpoint Palliative care consulted DC Plans underway DW Available prn over weekend.
[2017-10-25 17:05] VITALS: O2SAT 95
[2017-10-25] MEDS: Escitalopram 10 MG Tablet PO SCH (22:55)
[2017-10-26 06:24] VITALS: BP 159/94; PULSE 59; TEMP 97.5
[2017-10-26 07:15] VITALS: RESP 12
[2017-10-26] MEDS: levETIRAcetam 500 MG Tablet PO SCH (08:18)
[2017-10-26] MEDS: Calcium/Vitamin D 250/125 MG Tablet PO SCH (08:18)
[2017-10-26] MEDS: Famotidine 20 MG Tablet PO SCH (08:19)
[2017-10-26] MEDS: Senna/Docusate Sodium 8.6/50 MG Tablet PO SCH (08:19)
--- NOTE | 2017-11-13 11:04 | P.DS ---
Date of admission: 10/14/17 01:36 Primary care physician: UNKNOWN Attending physician on discharge: Loraine Johnston Anticipated date of discharge: 10/25/17 Brief History from admission: 72-year-old very pleasant gentleman presented to [facility] via EMS for an evaluation of a fall. The patient states that he was walking into the library when he started to become uncoordinated, states falling onto his right hip. The patient reports now having a persistent right hib pain. He denies any head trauma or loss of consciousness. The patient states that about the 1 months ago he has been in the emergency department at [facility] due to a facial droop but he left AMA at that time. He was having an MRI completed at the [facility] on October 10 that shows 2 cm peripheral enhancing mass within the left parietal lobe with a moderate amount of surrounding edema highly suspicious for metastatic disease. There is no history of primary malignancy which could have similar appearance although is considered less likely. The CT brain at the [facility] shows heterogenous hyperdense focal hemorrhagic mass at the right frontal lobe 2.4 cm in size with reactive vasogenic edema. The patient has also x-ray of the hip and pelvis that shows acute minimally displaced fracture at the right proximal femur likely intertrochanteric in location. The patient has been transferred to [facility] for higher level of care and neurosurgical/ orthopedic evaluation. DS: Diagnosis - Discharge Diagnosis (1) Metastatic cancer to brain Status: Acute Diagnosis: Principal (2) COPD (chronic obstructive pulmonary disease) Status: Chronic Diagnosis: Secondary (3) Displaced fracture of right femoral neck Status: Resolved Diagnosis: Principal (4) Multiple sclerosis Status: Chronic Diagnosis: Secondary (5) Seizures Status: Resolved Diagnosis: Secondary DS: Medications - Discharge Medications Prescriptions: alprazolam [Xanax] 0.25 mg PO Q6H PRN #18 tab PRN Reason: Anxiety dexamethasone 4 mg PO Q6HR #60 tab hydrocodone-acetaminophen [[place]] 1 tab PO Q4H #40 tab rivaroxaban [Xarelto] 10 mg PO DAILY #14 tab DS: Summary Hospital Course: 72-year-old white male transferred from [place] for evaluation for brain mass These are the problems addressed during the hospitalization: New onset with new right hemiplegia and aphasia Brain mass which show metastatic cancer -CT of the head stat shows severe vasogenic edema surrounding the left parietal mass, bilateral frontal pneumocephaly -Discussed with neurosurgery, continue Decadron for vasogenic edema for total of 3 weeks slow taper. 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 Seay, patient is declining chemotherapy and looking towards palliative care hospice. -Neurosurgery Dr. Bliss performed the carl mass resection now covered by Dr. Soler -Neuro checks remains stable -Keppra for seizure prophylaxis -CT chest abdomen and pelvis workup of primary lesion, essentially unremarkable except small lung nodule and a 5 mm right lung nodule. -Oncology consultation, Dr. Seay appreciated, suspected primary brain neoplasm -PT/OT/Speech -Neurosurgical service recommends slow three-week taper of Decadron following brain mass resection because of considerable surrounding vasogenic edema. Consulted Palliative care service for discussion on short term goals and terminal supervisor goals. Patient feels he desire short term rehab to buy some time upon return to [place] and then transition to hospice. He discussed prognosis further with Oncology. Seizure -Increase Keppra to 1000 mg twice daily. Right Hip fracture, s/p fall -Orthopedic following -Patient is status post right hip hemiarthroplasty 10/[address] Velazquez -PT/OT no postoperative complications COPD, chronic -No exacerbation -DuoNeb's as needed GI: -Diet per speech recommendation Adjustment disorder with depressionstarted Lexapro DVT GI prophylaxis -Teds SCDs -Hold Pharmacological DVT prophylaxis due to minimal subarachnoid hemorrhage -Pepcid - Time Spent with Patient Total time spent providing and/or coordinating discharge services: Less than 30 minutes - Quality: VTE Deep Vein Thrombosis/Pulmonary Embolism Present on Admission: No Exam Narrative: GENERAL: This is a well-nourished, well-developed patient, in no apparent distress. CARDIOVASCULAR: Regular rate and rhythm RESPIRATORY: Clear to auscultation. Breath sounds equal bilaterally. No wheezes , rales, or rhonchi. GASTROINTESTINAL: Abdomen soft, non-tender, nondistended. Normal active bowel sounds NEURO: Alert & Oriented x4 to person, place, time, situation. aphasia. right upper arm with 5/5, left sided weakness Results Procedures completed during hospitalization: 87 right hip hemiarthroplasty 10/16 brain mass resection Completed studies during hospitalization: Pending at discharge 10/15/17 11:22 Surgical [PTH] Routine 10/16/17 07:26 Surgical [PTH] Routine - Impressions ITS Impressions Abdomen/Pelvis CT 10/14/17 00:00 CONCLUSION: 1. Splenic nodules are identified including a 3.4 cm mass. This is nonspecific. 2. Severe emphysema. 3. Mild ectasia of the infrarenal abdominal aorta. Chest CT 10/14/17 00:00 CONCLUSION: 1. 5.3 mm right middle lobe nodule. 2. Severe emphysema. 3. Nonspecific mediastinal and right hilar adenopathy. 4. Indeterminate mass within the spleen. Head MRI 10/14/17 00:00 CONCLUSION: 1. 2.5 x 2.1 x 1.8 cm intra-axial mass involving the left parietal lobe with surrounding vasogenic edema consistent with a malignancy. 2. Multiple foci of microhemorrhage scattered throughout both cerebral and cerebellar hemispheres suggesting amyloid angiopathy. 3. White matter changes suggesting multiple sclerosis. Hip X-Ray 10/15/17 08:33 CONCLUSION: Postoperative right hip replacement with normal alignment. Head CT 10/18/17 00:00 CONCLUSION: 1. Surgical changes and subcutaneous parenchymal hemorrhage of the left parietal lobe is not significantly changed. Surrounding cerebral edema persists. No midline shift. 2. No new bleed or other acute abnormality. . Discharge Plan - Discharge Disposition Patient Disposition: Discharge to SNF - Discharge Condition Condition: Fair - Discharge Order Discharge Orders: Discharge Order (Routine); Ordered 10/25/17 Ordered By: Loraine Johnston - Discharge Details Anticipated Discharge Date: 10/25/17 - Physicians Team Primary Care Provider: UNKNOWN, Attending Provider: Loraine Johnston Other Providers: Nabeel Velazquez MD ; Bret Bliss MD ; Wilber Seay MD ; Carl Mcguire MD ; Amrik Pruitt MD ; Josee Tripp ; Svetlana Win MD ; Pedro Luis Vivar MD ; Jonel Hernandez MD - Rxs /Orders / Referrals /Forms Prescriptions: New alprazolam [Xanax] 0.25 mg Tablet 0.25 mg PO Q6H PRN (Reason: Anxiety) Qty: 18 RF: 0 calcium carbonate-vitamin D3 [[place] Calcium-Vit D3] 250-125 mg-unit Tablet 1 tab PO TID RF: 0 dexamethasone 4 mg Tablet 4 mg PO Q6HR Qty: 60 RF: 0 escitalopram oxalate 10 mg Tablet 10 mg PO HS Qty: 0 RF: 0 famotidine 20 mg Tablet 20 mg PO BID RF: 0 hydrocodone-acetaminophen [[place]] 7.5-325 mg Tablet 1 tab PO Q4H Qty: 40 RF: 0 levetiracetam [Keppra] 500 mg Tablet 500 mg PO BID RF: 0 rivaroxaban [Xarelto] 10 mg Tablet 10 mg PO DAILY Qty: 14 RF: 0 Ambulatory Orders / Order Sets / DME: Scottie Mahoney (Routine) Location: Determined by Patient Ordered By: Delta Ocasio Referrals: Nabeel Velazquez MD [Physician] - See Instructions (2 weeks ) UNKNOWN, [Primary Care Provider] - See Instructions - Discharge Instructions Patient Printed Instructions: Hydrocodone/Acetaminophen (By mouth), Alprazolam (By mouth), Dexamethasone (By mouth), Levetiracetam (By mouth), Rivaroxaban (By mouth), Total Hip Replacement (DC), Brain Biopsy (DC) - Post Discharge Care Plan Care Plan Goals: Your Health Problems: Goals to Promote Your Health: * To prevent worsening of your condition * To maintain your health at the optimal level Directions to Meet Your Goals: * Take your medications as prescribed * Follow your dietary instruction * Follow activity as directed * Keep your appointments as scheduled * Take your immunizations and boosters as scheduled * If your symptoms worsen call your PCP * If no PCP go to Urgent Care or Emergency Room Smoking is dangerous to your health. Avoid second hand smoke. You may reach the 24-hour crisis hotline for domestic abuse at .
== END 2017-10-26 09:32 ==
LOC: N03 10-14 01:36 → N05 10-21 17:58
PROVIDERS: ADMIT Family Medicine; ATTEND Family Medicine
DX: C79.31 Secondary malignant neoplasm of brain; E85.89 Other amyloidosis; Y93.01 Activity, walking, marching and hiking; C34.90 Malignant neoplasm of unspecified part of unspecified bronchus or lung; Y92.241 Library as the place of occurrence of the external cause; C7A.8 Other malignant neuroendocrine tumors; D73.9 Disease of spleen, unspecified; R29.810 Facial weakness; S72.141A Displaced intertrochanteric fracture of right femur, initial encounter for closed fracture; G93.6 Cerebral edema; R91.1 Solitary pulmonary nodule; G35 Multiple sclerosis; Z82.0 Family history of epilepsy and other diseases of the nervous system; G81.91 Hemiplegia, unspecified affecting right dominant side; Z51.5 Encounter for palliative care; Z80.1 Family history of malignant neoplasm of trachea, bronchus and lung; F17.210 Nicotine dependence, cigarettes, uncomplicated; J43.9 Emphysema, unspecified; Z80.51 Family history of malignant neoplasm of kidney; R56.9 Unspecified convulsions; W17.89XA Other fall from one level to another, initial encounter; Z68.1 Body mass index [BMI] 19.9 or less, adult; F43.21 Adjustment disorder with depressed mood